=== PATIENT | male | born 1945 | race Caucasian/White ===

== ENCOUNTER 2017-01-16 10:56 | Emergency (ER) | payer MEDICARE ==
[2017-01-16 11:07] VITALS: RESP 18
[2017-01-16] MEDS ORDERED: SODIUM CHLORIDE 0.9% 1,000 ML IV STA (11:30)
[2017-01-16] MEDS ORDERED: MAGNESIUM SULFATE-D5W PMX 1 GM in DEXTROSE/WATER 1 100ML.BAG IVPB STA (11:30)
[2017-01-16] MEDS ORDERED: IPRATROPIUM-ALBUTEROL 3 ML NEB INHALATION STA ×2 (11:30→13:47)
[2017-01-16] MEDS ORDERED: methylPREDNISolone SOD SUCCI 125 MG/2 ML VIAL IV STA (11:30)
--- NOTE | 2017-01-16 11:33 | ED ---
SOB HPI - General Chief Complaint: Shortness of Breath Stated Complaint: cough, congestion, body aches Time Seen by Provider: 01/16/17 11:20 Source: patient, RN notes reviewed Mode of arrival: ambulatory Limitations: no limitations - History of Present Illness Initial Comments: This is a 71-year-old male with a history of COPD who states he had the onset over [place] of some cough he was seen in urgent care clinic and placed on antibiotics and oral steroids which she ran out of about 5-6 days ago he states he was feeling great up until a day or so later when he started getting progressively more short of breath and over last 3 days distress yet worse with cough with yellow phlegm dyspnea on exertion no overt chest pain no overt fevers chills or sweats. He is a former smoker who quit about 8 years ago. He has no other complaints other than the shortness of breath at this time. MD Complaint: shortness of breath, cough - Related Data Home Medications Medication Instructions Recorded Confirmed Multivitamins, Thera [Multivitamin] 1 tab PO DAILY 03/31/16 01/16/17 Omeprazole 20 mg PO DAILY 03/31/16 01/16/17 Atorvastatin [Lipitor] 40 mg PO HS 01/16/17 01/16/17 Cyanocobalamin [Vitamin B-12] 500 mcg PO DAILY 01/16/17 01/16/17 Ferrous Sulfate [Feosol] 325 mg PO DAILY 01/16/17 01/16/17 Lisinopril [Prinivil] 5 mg PO DAILY 01/16/17 01/16/17 Metoprolol Tartrate [Lopressor] 12.5 mg PO BID 01/16/17 01/16/17 PARoxetine HCL 40 mg PO DAILY 01/16/17 01/16/17 Tamsulosin [Flomax] 0.4 mg PO HS 01/16/17 01/16/17 Testosterone 20.25mg/Pump Gel 40.5 mg TOPICAL DAILY 01/16/17 01/16/17 Tiotropium [place] [Spiriva] 1 cap INHALATION RT-DAILY 01/16/17 01/16/17 Previous Rx's Medication Instructions Recorded Albuterol Sulfate [Proventil Hfa] 2 puff INHALATION RT-QID PRN #1 04/02/16 hfa.aer.ad Apixaban [Eliquis] 5 mg PO BID #60 tab 04/02/16 Budesonide/Formoterol Fumarate 2 puff INHALATION RT-BID #1 04/02/16 [Symbicort 160-4.5 Mcg Inhaler] hfa.aer.ad Doxycycline [Vibramycin] 100 mg PO Q12HR #20 capsule 01/16/17 Ipratropium-Albuterol Nebulize 3 ml INHALATION Q6HR PRN #120 neb 01/16/17 [Duoneb 0.5 mg-3 mg/3 ml Soln] predniSONE 20 mg PO BID #10 tab 01/16/17 Allergies Allergy/AdvReac Type Severity Reaction Status Date / Time Sulfa (Sulfonamide Allergy Unknown Verified 01/16/17 11:52 Antibiotics) Review of Systems ROS Statement: Those systems with pertinent positive or pertinent negative responses have been documented in the HPI. ROS Other: All systems not noted in ROS Statement are negative. Past Medical History Past Medical History: Atrial Fibrillation, COPD, Hyperlipidemia, Hypertension Additional Past Medical History / Comment(s): BPH History of Any Multi-Drug Resistant Organisms: None Reported Additional Past Surgical History / Comment(s): spinal fusion Past Psychological History: No Psychological Hx Reported Smoking Status: Former smoker Past Alcohol Use History: Occasional Past Drug Use History: None Reported - Past Family History Mother Family Medical History: Congestive Heart Failure (CHF) Additional Family Medical History / Comment(s): 4 uncles passed with [place] Sister(s) Family Medical History: Congestive Heart Failure (CHF) Additional Family Medical History / Comment(s): 1 sister from CHF Father Family Medical History: Cancer Additional Family Medical History / Comment(s): of sepsis after lung surgery for suspected cancer General Exam - General Exam Comments Initial Comments: This is a well-developed well-nourished awake alert oriented 3 male Limitations: no limitations General appearance: alert, in no apparent distress Head exam: Present: atraumatic, normocephalic, normal inspection Eye exam: Present: normal appearance, PERRL, EOMI. Absent: scleral icterus, conjunctival injection, periorbital swelling ENT exam: Present: normal exam, mucous membranes moist Neck exam: Present: normal inspection. Absent: tenderness, meningismus, lymphadenopathy Respiratory exam: Present: wheezes, accessory muscle use, decreased breath sounds. Absent: respiratory distress, rales, rhonchi, stridor Cardiovascular Exam: Present: regular rate, normal rhythm, normal heart sounds. Absent: systolic murmur, diastolic murmur, rubs, gallop, clicks GI/Abdominal exam: Present: soft, normal bowel sounds. Absent: distended, tenderness, guarding, rebound, rigid Extremities exam: Present: normal inspection, full ROM, normal capillary refill. Absent: tenderness, pedal edema, joint swelling, calf tenderness Back exam: Present: normal inspection Neurological exam: Present: alert, oriented X3, CN II-XII intact Psychiatric exam: Present: normal affect, normal mood Skin exam: Present: warm, dry, intact, normal color. Absent: rash Course Vital Signs 01/16/17 01/16/17 01/16/17 11:03 11:43 12:22 Temperature 98.9 F 101.4 F H Pulse Rate 84 82 Respiratory 18 Rate Blood Pressure 142/83 O2 Sat by Pulse 88 L Oximetry 01/16/17 01/16/17 12:33 13:19 Temperature 100.9 F H Pulse Rate 76 75 Respiratory 18 Rate Blood Pressure 148/70 O2 Sat by Pulse 92 L Oximetry Medical Decision Making - Medical Decision Making The patient felt improved but after walking he did desaturate somewhat. He did recover quickly I did a long discussion with him regarding admission he would like to go home and try his home nebulizer with medications. He will come back if is any problem. He currently is saturating in the high 90s. Patient will be discharged with prescriptions he is to return if needed and follow-up with his doctor. - Lab Data Result diagrams: 01/16/17 11:40 01/16/17 11:40 Lab Results 01/16/17 01/16/17 01/16/17 Range/Units 11:40 11:40 11:40 WBC 5.8 (3.8-10.6) k/uL RBC 4.19 L (4.30-5.90) m/uL Hgb 14.0 (13.0-17.5) gm/dL Hct 40.7 (39.0-53.0) % MCV 97.0 (80.0-100.0) fL MCH 33.4 (25.0-35.0) pg MCHC 34.4 (31.0-37.0) g/dL RDW 13.3 (11.5-15.5) % Plt Count 210 (150-450) k/uL Neutrophils % 78 % Lymphocytes % 10 % Monocytes % 8 % Eosinophils % 1 % Basophils % 1 % Neutrophils # 4.5 (1.3-7.7) k/uL Lymphocytes # 0.6 L (1.0-4.8) k/uL Monocytes # 0.4 (0-1.0) k/uL Eosinophils # 0.0 (0-0.7) k/uL Basophils # 0.1 (0-0.2) k/uL PT (9.0-12.0) sec INR (<1.1) APTT (22.0-30.0) sec D-Dimer (<0.60) mg/L FEU Sodium 133 L (137-145) mmol/L Potassium 4.2 (3.5-5.1) mmol/L Chloride 95 L (98-107) mmol/L Carbon Dioxide 30 (22-30) mmol/L Anion Gap 8 mmol/L BUN 8 L (9-20) mg/dL Creatinine 0.63 L (0.66-1.25) mg/dL Est GFR (MDRD) Af Amer >60 (>60 ml/min/1.73 sqM) Est GFR (MDRD) Non-Af >60 (>60 ml/min/1.73 sqM) Glucose 118 H (74-99) mg/dL Calcium 9.0 (8.4-10.2) mg/dL Magnesium 1.6 (1.6-2.3) mg/dL Total Bilirubin 0.6 (0.2-1.3) mg/dL AST 34 (17-59) U/L ALT 36 (21-72) U/L Alkaline Phosphatase 73 (38-126) U/L Total Creatine Kinase 153 (55-170) U/L CK-MB (CK-2) 6.0 H* (0.0-2.4) ng/mL CK-MB (CK-2) Rel Index 3.9 Troponin I <0.012 (0.000-0.034) ng/mL NT-Pro-B Natriuret Pep pg/mL Total Protein 6.6 (6.3-8.2) g/dL Albumin 4.0 (3.5-5.0) g/dL 02/22/17 02/22/17 Range/Units 11:40 11:40 WBC (3.8-10.6) k/uL RBC (4.30-5.90) m/uL Hgb (13.0-17.5) gm/dL Hct (39.0-53.0) % MCV (80.0-100.0) fL MCH (25.0-35.0) pg MCHC (31.0-37.0) g/dL RDW (11.5-15.5) % Plt Count (150-450) k/uL Neutrophils % % Lymphocytes % % Monocytes % % Eosinophils % % Basophils % % Neutrophils # (1.3-7.7) k/uL Lymphocytes # (1.0-4.8) k/uL Monocytes # (0-1.0) k/uL Eosinophils # (0-0.7) k/uL Basophils # (0-0.2) k/uL PT 10.6 (9.0-12.0) sec INR 1.1 (<1.1) APTT 32.7 H (22.0-30.0) sec D-Dimer <0.17 (<0.60) mg/L FEU Sodium (137-145) mmol/L Potassium (3.5-5.1) mmol/L Chloride (98-107) mmol/L Carbon Dioxide (22-30) mmol/L Anion Gap mmol/L BUN (9-20) mg/dL Creatinine (0.66-1.25) mg/dL Est GFR (MDRD) Af Amer (>60 ml/min/1.73 sqM) Est GFR (MDRD) Non-Af (>60 ml/min/1.73 sqM) Glucose (74-99) mg/dL Calcium (8.4-10.2) mg/dL Magnesium (1.6-2.3) mg/dL Total Bilirubin (0.2-1.3) mg/dL AST (17-59) U/L ALT (21-72) U/L Alkaline Phosphatase (38-126) U/L Total Creatine Kinase (55-170) U/L CK-MB (CK-2) (0.0-2.4) ng/mL CK-MB (CK-2) Rel Index Troponin I (0.000-0.034) ng/mL NT-Pro-B Natriuret Pep 427 pg/mL Total Protein (6.3-8.2) g/dL Albumin (3.5-5.0) g/dL - EKG Data -: EKG Interpreted by Me EKG shows normal: sinus rhythm (Sinus rhythm a rate of 73. Interval 150 to QRS duration 84 daily since QTC of 362/398 evidence of PACs) - Radiology Data Radiology results: report reviewed (I did review the x-ray report no definite acute findings.), image reviewed Disposition Clinical Impression: Acute exacerbation of chronic obstructive airways disease Disposition: HOME SELF-CARE Condition: Good Instructions: COPD (Chronic Obstructive Pulmonary Disease) (ED) Prescriptions: Doxycycline [Vibramycin] 100 mg PO Q12HR #20 capsule Ipratropium-Albuterol Nebulize [Duoneb 0.5 mg-3 mg/3 ml Soln] 3 ml INHALATION Q6HR PRN #120 neb PRN Reason: Dyspnea predniSONE 20 mg PO BID #10 tab
[2017-01-16 11:53] LABS: Basophils # (A) 0.1 k/uL (0-0.2); Basophils % (A) 1 %; CHCM 35.2; Eosinophils % (A) 1 %; HCT 40.7 % (39.0-53.0); HDW 2.33; Luc # (Auto) 0.17; Luc % (Auto) 3; Lymphocytes # (A) 0.6 k/uL (1.0-4.8); Lymphocytes % (A) 10 %; MCH 33.4 pg (25.0-35.0); MCHC 34.4 g/dL (31.0-37.0); Mean Platelet Volume 7.4; Monocytes # (A) 0.4 k/uL (0-1.0); Monocytes % (A) 8 %; Neutrophils # (A) 4.5 k/uL (1.3-7.7); Neutrophils % (A) 78 %; RBC 4.19 m/uL (4.30-5.90); RDW 13.3 % (11.5-15.5); WBC 5.8 k/uL (3.8-10.6); WBC (Perox) 5.42
[2017-01-16 12:07] LABS: INR 1.1 (<1.1); Partial Thromboplastin Time 32.7 sec (22.0-30.0); Prothrombin Time 10.6 sec (9.0-12.0)
[2017-01-16 12:15] LABS: ALT 36 U/L (21-72); AST 34 U/L (17-59); Alkaline Phosphatase 73 U/L (38-126); Anion Gap 8 mmol/L; Blood Urea Nitrogen 8 mg/dL (9-20); Carbon Dioxide 30 mmol/L (22-30); Chloride 95 mmol/L (98-107); Glucose 118 mg/dL (74-99); Magnesium 1.6 mg/dL (1.6-2.3); Non-African American GFR(MDRD) >60 (>60 ml/min/1.73 sqM); Potassium 4.2 mmol/L (3.5-5.1); Sodium 133 mmol/L (137-145); Total Bilirubin 0.6 mg/dL (0.2-1.3); Total Protein 6.6 g/dL (6.3-8.2)
[2017-01-16 12:20] LABS: Creatine Kinase 153 U/L (55-170)
--- NOTE | 2017-01-16 12:21 | XR ---
EXAMINATION TYPE: XR chest 2V DATE OF EXAM: 01/16/2017 12:16 PM HISTORY: difficulty breathing. REFERENCE: Previous study dated 03/31/2016. FINDINGS: Lungs are overinflated. There are some chronic increased markings. The heart is not enlarge d. The right main pulmonary artery is enlarged measuring 3.7 cm. Pleural spaces are clear. There is h ypertrophic spondylosis within the dorsal spine. IMPRESSION: 1. COPD. 2. I SUSPECT SOME DEGREE OF PULMONARY ARTERY HYPERTENSION.
[2017-01-16 12:32] LABS: Troponin I <0.012 ng/mL (0.000-0.034)
[2017-01-16 14:30] VITALS: BP 157/72; PULSE 97; TEMP 101.1
== END 2017-01-16 14:30 | disposition home or self-care (01) ==
LOC: EC 10:56
DX: J44.1 Chronic obstructive pulmonary disease with (acute) exacerbation (principal); Z87.891 Personal history of nicotine dependence; Z79.899 Other long term (current) drug therapy; E78.5 Hyperlipidemia, unspecified; I10 Essential (primary) hypertension; N40.0 Benign prostatic hyperplasia without lower urinary tract symptoms; Z79.01 Long term (current) use of anticoagulants; Z79.51 Long term (current) use of inhaled steroids; Z88.2 Allergy status to sulfonamides; I48.91 Unspecified atrial fibrillation
CPT/HCPCS: 36415; 94640 ×2; 93005; 85379; 83880; 80053; 82550; 82553; 83735; 84484; 85025; 85610; 85730; 87040; 71020; 96365; 96375; 99285; J2930; J3475; 96361; 96374

== ENCOUNTER 2017-04-29 05:57 | Inpatient (IN) | payer MEDICARE ==
--- NOTE | 2017-04-29 06:27 | ED ---
Syncope HPI - General Chief Complaint: Syncope Stated Complaint: syncope Time Seen by Provider: 04/29/17 06:19 Source: patient Mode of arrival: ambulatory Limitations: no limitations - History of Present Illness Initial Comments: This patient is 72-year-old man who presents to be evaluated for 2 syncopal episodes that happened yesterday around 4 in the afternoon and then again at 4: 30. Both the episodes occurred when he had stood up. Patient states that he passed out and fell, striking both elbows, one each fall. The patient also states that it feels like his COPD he has been flaring up overnight so he decided to be evaluated. He did not have any chest pains, palpitations, nausea or vomiting or diaphoresis. MD Complaint: loss of consciousness Onset/Timin -: hour(s) Prodromal Symptoms: lightheaded Witnessed: no Current Symptoms: shortness of breath History: previous syncopal episode Context: standing up Treatments Prior to Arrival: none - Related Data Home Medications Medication Instructions Recorded Confirmed Multivitamins, Thera [Multivitamin 1 tab PO DAILY 03/31/16 04/29/17 (formulary)] Omeprazole 20 mg PO DAILY 03/31/16 04/29/17 Atorvastatin [Lipitor] 40 mg PO HS 01/16/17 04/29/17 Cyanocobalamin [Vitamin B-12] 500 mcg PO DAILY 01/16/17 04/29/17 Ferrous Sulfate [Feosol] 325 mg PO DAILY 01/16/17 04/29/17 Lisinopril [Prinivil] 5 mg PO DAILY 01/16/17 04/29/17 Metoprolol Tartrate [Lopressor] 12.5 mg PO BID 01/16/17 04/29/17 PARoxetine HCL 40 mg PO DAILY 01/16/17 04/29/17 Tamsulosin [Flomax] 0.4 mg PO HS 01/16/17 04/29/17 Testosterone 20.25mg/Pump Gel 40.5 mg TOPICAL DAILY 01/16/17 04/29/17 Tiotropium [place] [Spiriva] 1 cap INHALATION RT-DAILY 01/16/17 04/29/17 Aspirin [Adult Low Dose Aspirin EC] 81 mg PO DAILY 04/29/17 04/29/17 Previous Rx's Medication Instructions Recorded Albuterol Sulfate [Proventil Hfa] 2 puff INHALATION RT-QID PRN #1 04/02/16 hfa.aer.ad Apixaban [Eliquis] 5 mg PO BID #60 tab 04/02/16 Budesonide/Formoterol Fumarate 2 puff INHALATION RT-BID #1 04/02/16 [Symbicort 160-4.5 Mcg Inhaler] hfa.aer.ad Allergies Allergy/AdvReac Type Severity Reaction Status Date / Time Sulfa (Sulfonamide Allergy Unknown Verified 04/29/17 06:58 Antibiotics) Review of Systems ROS Statement: Those systems with pertinent positive or pertinent negative responses have been documented in the HPI. ROS Other: All systems not noted in ROS Statement are negative. Constitutional: Denies: fever, chills, weakness Eyes: Denies: vision change Respiratory: Reports: cough, dyspnea, wheezes. Denies: hemoptysis Cardiovascular: Reports: syncope. Denies: chest pain, palpitations, orthopnea, edema Gastrointestinal: Denies: abdominal pain, vomiting, diarrhea, melena, hematochezia Genitourinary: Denies: dysuria, hematuria Musculoskeletal: Denies: back pain Skin: Denies: rash Neurological: Denies: headache, weakness, numbness, paresthesias Hematological/Lymphatic: Reports: easy bleeding (Taking the Xarelto) Past Medical History Past Medical History: Atrial Fibrillation, COPD, Hyperlipidemia, Hypertension Additional Past Medical History / Comment(s): BPH History of Any Multi-Drug Resistant Organisms: None Reported Additional Past Surgical History / Comment(s): spinal fusion Past Psychological History: No Psychological Hx Reported Smoking Status: Former smoker Past Alcohol Use History: Occasional Past Drug Use History: None Reported - Past Family History Mother Family Medical History: Congestive Heart Failure (CHF) Additional Family Medical History / Comment(s): 4 uncles passed with [place] Sister(s) Family Medical History: Congestive Heart Failure (CHF) Additional Family Medical History / Comment(s): 1 sister from CHF Father Family Medical History: Cancer Additional Family Medical History / Comment(s): of sepsis after lung surgery for suspected cancer General Exam Limitations: no limitations General appearance: alert, in no apparent distress Head exam: Present: atraumatic, normocephalic Eye exam: Present: normal appearance. Absent: scleral icterus, conjunctival injection Neck exam: Present: normal inspection, full ROM Respiratory exam: Present: wheezes, decreased breath sounds. Absent: rales, rhonchi, stridor, chest wall tenderness, accessory muscle use Cardiovascular Exam: Present: regular rate, normal rhythm, normal heart sounds. Absent: systolic murmur, diastolic murmur, rubs, gallop GI/Abdominal exam: Present: soft. Absent: distended, tenderness, guarding, rebound, mass Extremities exam: Present: normal inspection, normal capillary refill, other ( Hematoma right elbow. No obvious deformity. Minimal tenderness.). Absent: pedal edema, calf tenderness Back exam: Present: normal inspection. Absent: CVA tenderness (R), CVA tenderness (L), paraspinal tenderness Neurological exam: Present: alert Skin exam: Present: warm, dry, intact, normal color. Absent: rash, cyanosis, diaphoretic, erythema, petechiae, pallor, mottled Course Vital Signs 04/29/17 05:59 Temperature 99.4 F Pulse Rate 89 Respiratory 148 H Rate Blood Pressure 168/77 O2 Sat by Pulse 91 L Oximetry EKG Findings - EKG Results: EKG: interpreted by ERMSonali, sinus rhythm (Rate approximately 86 bpm, there are occasional premature supraventricular complexes), normal axis, normal QRS, normal ST/T Medical Decision Making - Medical Decision Making Case discussed with Dr. Borrego in who is covering for Dr. Alcantara, and requests admission to the covering physician, Dr. Guy. - Lab Data Result diagrams: 04/29/17 06:10 04/29/17 06:10 Lab Results 04/29/17 04/29/17 04/29/17 Range/Units 06:10 06:10 06:10 WBC 5.6 (3.8-10.6) k/uL RBC 4.59 (4.30-5.90) m/uL Hgb 15.0 (13.0-17.5) gm/dL Hct 44.3 (39.0-53.0) % MCV 96.7 (80.0-100.0) fL MCH 32.6 (25.0-35.0) pg MCHC 33.7 (31.0-37.0) g/dL RDW 13.4 (11.5-15.5) % Plt Count 185 (150-450) k/uL Neutrophils % 76 % Lymphocytes % 9 % Monocytes % 9 % Eosinophils % 1 % Basophils % 1 % Neutrophils # 4.2 (1.3-7.7) k/uL Lymphocytes # 0.5 L (1.0-4.8) k/uL Monocytes # 0.5 (0-1.0) k/uL Eosinophils # 0.1 (0-0.7) k/uL Basophils # 0.1 (0-0.2) k/uL PT (9.0-12.0) sec INR (<1.1) APTT (22.0-30.0) sec D-Dimer (<0.60) mg/L FEU Sodium 132 L (137-145) mmol/L Potassium 4.2 (3.5-5.1) mmol/L Chloride 94 L (98-107) mmol/L Carbon Dioxide 28 (22-30) mmol/L Anion Gap 10 mmol/L BUN 7 L (9-20) mg/dL Creatinine 0.62 L (0.66-1.25) mg/dL Est GFR (MDRD) Af Amer >60 (>60 ml/min/1.73 sqM) Est GFR (MDRD) Non-Af >60 (>60 ml/min/1.73 sqM) Glucose 99 (74-99) mg/dL Calcium 9.2 (8.4-10.2) mg/dL Magnesium 1.6 (1.6-2.3) mg/dL Total Bilirubin 1.4 H (0.2-1.3) mg/dL AST 51 (17-59) U/L ALT 41 (21-72) U/L Alkaline Phosphatase 97 (38-126) U/L Total Creatine Kinase 327 H (55-170) U/L CK-MB (CK-2) 7.3 H* (0.0-2.4) ng/mL CK-MB (CK-2) Rel Index 2.2 Troponin I <0.012 (0.000-0.034) ng/mL Total Protein 7.0 (6.3-8.2) g/dL Albumin 4.4 (3.5-5.0) g/dL 04/29/17 04/29/17 Range/Units 06:10 06:10 WBC (3.8-10.6) k/uL RBC (4.30-5.90) m/uL Hgb (13.0-17.5) gm/dL Hct (39.0-53.0) % MCV (80.0-100.0) fL MCH (25.0-35.0) pg MCHC (31.0-37.0) g/dL RDW (11.5-15.5) % Plt Count (150-450) k/uL Neutrophils % % Lymphocytes % % Monocytes % % Eosinophils % % Basophils % % Neutrophils # (1.3-7.7) k/uL Lymphocytes # (1.0-4.8) k/uL Monocytes # (0-1.0) k/uL Eosinophils # (0-0.7) k/uL Basophils # (0-0.2) k/uL PT 10.4 (9.0-12.0) sec INR 1.0 (<1.1) APTT 30.4 H (22.0-30.0) sec D-Dimer 0.45 (<0.60) mg/L FEU Sodium (137-145) mmol/L Potassium (3.5-5.1) mmol/L Chloride (98-107) mmol/L Carbon Dioxide (22-30) mmol/L Anion Gap mmol/L BUN (9-20) mg/dL Creatinine (0.66-1.25) mg/dL Est GFR (MDRD) Af Amer (>60 ml/min/1.73 sqM) Est GFR (MDRD) Non-Af (>60 ml/min/1.73 sqM) Glucose (74-99) mg/dL Calcium (8.4-10.2) mg/dL Magnesium (1.6-2.3) mg/dL Total Bilirubin (0.2-1.3) mg/dL AST (17-59) U/L ALT (21-72) U/L Alkaline Phosphatase (38-126) U/L Total Creatine Kinase (55-170) U/L CK-MB (CK-2) (0.0-2.4) ng/mL CK-MB (CK-2) Rel Index Troponin I (0.000-0.034) ng/mL Total Protein (6.3-8.2) g/dL Albumin (3.5-5.0) g/dL Disposition Clinical Impression: Syncope, COPD exacerbation Disposition: ADMITTED IP TO THIS HOSP Condition: Fair Referrals: Willy Alcantara MD [Primary Care Provider] - 1-2 days
[2017-04-29 06:37] LABS: Basophils # (A) 0.1 k/uL (0-0.2); Basophils % (A) 1 %; CH 33.8; CHCM 35.1; Eosinophils # (A) 0.1 k/uL (0-0.7); Eosinophils % (A) 1 %; HCT 44.3 % (39.0-53.0); HDW 2.04; Luc # (Auto) 0.24; Luc % (Auto) 4; Lymphocytes # (A) 0.5 k/uL (1.0-4.8); Lymphocytes % (A) 9 %; MCH 32.6 pg (25.0-35.0); MCHC 33.7 g/dL (31.0-37.0); MCV 96.7 fL (80.0-100.0); Mean Platelet Volume 6.4; Monocytes # (A) 0.5 k/uL (0-1.0); Monocytes % (A) 9 %; Neutrophils # (A) 4.2 k/uL (1.3-7.7); Neutrophils % (A) 76 %; RBC 4.59 m/uL (4.30-5.90); RDW 13.4 % (11.5-15.5); WBC 5.6 k/uL (3.8-10.6); WBC (Perox) 5.43
[2017-04-29 06:47] LABS: Prothrombin Time 10.4 sec (9.0-12.0)
[2017-04-29 06:48] LABS: Partial Thromboplastin Time 30.4 sec (22.0-30.0)
[2017-04-29 06:52] LABS: ALT 41 U/L (21-72); AST 51 U/L (17-59); Alkaline Phosphatase 97 U/L (38-126); Anion Gap 10 mmol/L; Blood Urea Nitrogen 7 mg/dL (9-20); Calcium 9.2 mg/dL (8.4-10.2); Carbon Dioxide 28 mmol/L (22-30); Chloride 94 mmol/L (98-107); Glucose 99 mg/dL (74-99); Magnesium 1.6 mg/dL (1.6-2.3); Non-African American GFR(MDRD) >60 (>60 ml/min/1.73 sqM); Potassium 4.2 mmol/L (3.5-5.1); Sodium 132 mmol/L (137-145); Total Bilirubin 1.4 mg/dL (0.2-1.3)
[2017-04-29 07:00] LABS: Creatine Kinase 327 U/L (55-170)
[2017-04-29] MEDS ORDERED: IPRATROPIUM-ALBUTEROL 3 ML NEB INHALATION STA (07:10)
[2017-04-29 07:13] LABS: Troponin I <0.012 ng/mL (0.000-0.034)
[2017-04-29 07:27] LABS: Creatine Kinase MB 7.3 ng/mL (0.0-2.4)
--- NOTE | 2017-04-29 07:31 | XR ---
EXAMINATION TYPE: XR elbow complete RT DATE OF EXAM: 04/29/2017 CLINICAL HISTORY: Elbow injury with pain TECHNIQUE: Frontal, lateral and oblique images of the right elbow are obtained. COMPARISON: None FINDINGS: There is no acute fracture/dislocation evident in the right elbow. Spurring ulnohumeral ar ticulation is present. Spurring from the lateral epicondyle distal humerus is seen. No abnormal fat p ad signs are seen. Mild soft tissue swelling and subcutaneous edema ulnar aspect is noted. IMPRESSION: There is no acute fracture or dislocation in the right elbow.
--- NOTE | 2017-04-29 07:33 | XR ---
EXAMINATION TYPE: XR chest 1V portable DATE OF EXAM: 04/29/2017 COMPARISON: Chest x-ray January 16, 2017. HISTORY: Syncope. History of emphysema. TECHNIQUE: 2 AP portable frontal views of the chest are obtained. FINDINGS: There is chronic parenchymal change without suspicious new focal air space opacity, pleura l effusion, or pneumothorax seen. The cardiac silhouette size is within normal limits with atheroscl erotic change in aortic knob. Multilevel spurring and spine is seen. There is old fracture deformity left posterior lateral ninth rib. There is partial visualization of surgical change in the upper lumb ar spine. IMPRESSION: Chronic changes without acute pulmonary process.
--- NOTE | 2017-04-29 07:36 | CT ---
EXAMINATION TYPE: CT brain phuongine dmitri con DATE OF EXAM: 04/29/2017 COMPARISON: NONE HISTORY: multiple episodes of syncope with headache and neck pain. CT DLP: 1384.9 mGycm. Automated Exposure Control for Dose Reduction was Utilized. TECHNIQUE: CT scan of the head and cervical spine are performed without contrast. FINDINGS: There is no acute intracranial hemorrhage, mass effect, or midline shift identified. The ventricles and sulci are within normal limits in size. The globes are intact and the visualized sin uses are clear. Calvarium is intact. Vascular calcification distal internal carotid arteries is noted bilaterally. Cervical spine is visualized in its entirety from C1 through upper thoracic levels and demonstrates s traightened alignment without evidence of acute fracture or dislocation. Prevertebral soft tissue ap pears within normal limits. The C1-C2 articulation is within normal limits on the coronal images. Vertebral body heights are maintained. There is moderate to advanced disc space narrowing with sclero sis and moderate spurring C5-C6 level and moderate to severe spurring at C6-C7 level. Review of axial images shows left-sided uncovertebral facet degenerative changes causing neural dean inal narrowing at C2-C3 through C4-C5 levels. There is marginal spurring causing bilateral neural for aminal narrowing at C5-C6 level. Visualized lung apices show moderate edematous change. Moderate calc ified plaque at both carotid bulb level is present. Consider nonemergent carotid ultrasound follow-up . IMPRESSION: 1. There is no acute fracture or dislocation evident in the cervical spine. 2. No acute intracranial hemorrhage, mass effect, or midline shift is seen.
[2017-04-29] MEDS ORDERED: NITROGLYCERIN SL TABS 0.4 MG TAB SUBLINGUAL PRN (07:38)
[2017-04-29] MEDS ORDERED: ALBUTEROL NEBULIZED 2.5 MG/3 ML INHALATION PRN (07:41)
[2017-04-29] MEDS ORDERED: predniSONE 20 MG TAB PO STA (07:43)
[2017-04-29 07:47] LABS: Appearance,Urine Clear (Clear); Bilirubin,Urine Negative (Negative); Glucose,Urine (UA) Negative (Negative); Ketones,Urine 1+ (Negative); Leukocyte Esterase,Urine Negative (Negative); Nitrite,Urine Negative (Negative); PH, Urine 5.5 (5.0-8.0); Protein,Urine Negative (Negative); Specific Gravity,Urine 1.006 (1.001-1.035); UA Billing (MACRO vs. MICRO) CHEM; Urobilinogen,Urine <2.0 mg/dL (<2.0)
[2017-04-29] MEDS: IPRATROPIUM-ALBUTEROL 3 ML NEB INHALATION SCH ×4 (07:58→20:26)
[2017-04-29] MEDS ORDERED: TIOTROPIUM 18 MCG/PUFF INHALER INHALATION SCH (08:00)
[2017-04-29] MEDS: SODIUM CHLORIDE 0.9% 1,000 ML IV SCH (08:25)
[2017-04-29] MEDS ORDERED: NON-FORMULARY DRUG (Aspirin [Adult Low Dose Aspirin Ec] 81 MG) PO SCH (09:00)
[2017-04-29] MEDS: APIXABAN 5 MG TAB PO SCH ×2 (11:09→20:57)
[2017-04-29] MEDS: LISINOPRIL 5 MG TAB PO SCH (11:11)
[2017-04-29] MEDS: METOPROLOL TARTRATE 12.5 MG TAB PO SCH ×2 (11:11→20:55)
[2017-04-29] MEDS: PARoxetine 20 MG TAB PO SCH (11:12)
[2017-04-29] MEDS: CYANOCOBALAMIN 500 MCG TAB PO SCH (11:13)
[2017-04-29] MEDS: MULTIVITAMINS, THERA 1 EACH TAB PO SCH (11:13)
[2017-04-29] MEDS: FERROUS SULFATE 325 MG TAB PO SCH (11:13)
[2017-04-29] MEDS: SYMBICORT 160-4.5 MCG INHALER INHALATION SCH ×2 (11:45→20:26)
[2017-04-29 12:28] LABS: Creatine Kinase 294 U/L (55-170)
[2017-04-29 12:42] LABS: Troponin I <0.012 ng/mL (0.000-0.034)
[2017-04-29 12:47] LABS: Creatine Kinase MB 5.8 ng/mL (0.0-2.4)
[2017-04-29] MEDS ORDERED: LORazepam 2 MG/ML SYRINGE IV PRN ×3 (14:33)
[2017-04-29] MEDS ORDERED: THIAMINE 100 MG/ML 2 ML VIAL IM STA (14:33)
[2017-04-29] MEDS ORDERED: Magnesium Replacement Protocol 1 EACH MISC MISCELLANE PRN (14:34)
--- NOTE | 2017-04-29 16:21 | P.CNPUL ---
History of Present Illness Consult date: 04/29/17 Reason for consult: COPD History of present illness: A 72-year-old male patient who came into the hospital yesterday because of acute shortness of breath. At the same time the patient described 2 episodes of syncope. Apparently yesterday when he was at his friend's house at around 4 PM, he was about to leave and he walked out for around 6-8 feet and he became wobbly and then he collapsed for a few seconds. He woke up immediately following that. He was able to drive back home. 45 minutes to an hour following the first event he had another episode when he collapsed and he got up and he contacted EMS and he came into the hospital. Note that he was having increased difficulty in breathing and he was having acute COPD exacerbation symptoms with increased cough chest congestion and wheezing over the past 24-48 hours. No chest pain during the episodes. No focal neurological deficits. No seizure activity was noted. No palpitations or cardiac arrhythmias was identified. His EKG showed a sinus rhythm with premature ventricular complexes and septal infarct that was probably old. He is a chronic smoker. He drinks also be on a daily basis. He is mainly being followed up by the railroad dining car steward/stewardess at the [facility] however he has seen Dr. JACOB Kendall in the past. Her latest stress test was more than 2 years ago. Note that his CPK is not elevated. Troponin is a been negative. Rest of the blood work essentially within normal limits. The computed tomography scan of the cervical spine showed no acute fracture or dislocation and there was no acute abnormalities within the brain on the CAT scan of the head. The patient has been on long-term anticoagulation with Eliquis regarding paroxysmal atrial fibrillation. In terms of his COPD, has been maintained on a combination of Spiriva, budesonide solution and Proventil rescue inhaler on as needed basis. Review of Systems All systems: negative Constitutional: Denies chills, Denies fever Eyes: denies blurred vision, denies pain Ears, nose, mouth and throat: Denies headache, Denies sore throat Cardiovascular: Denies chest pain, Denies shortness of breath Respiratory: Reports cough, Reports cough with sputum, Reports dyspnea, Reports wheezing Gastrointestinal: Denies abdominal pain, Denies diarrhea, Denies nausea, Denies vomiting Musculoskeletal: Denies myalgias Integumentary: Denies pruritus, Denies rash Neurological: Reports syncope, Denies numbness, Denies weakness Psychiatric: Denies anxiety, Denies depression Endocrine: Denies fatigue, Denies weight change Past Medical History Past Medical History: Atrial Fibrillation, Atrial Flutter, COPD, GERD/Reflux, Hyperlipidemia, Hypertension, Osteoarthritis (OA), Pneumonia, Prostate Disorder Additional Past Medical History / Comment(s): BPH, bilateral tinnitis, NIDDM- diet controlled, DJD, arthritis R hand and R knee, numbness/tingling R leg, past R arm fracture. History of Any Multi-Drug Resistant Organisms: None Reported Additional Past Surgical History / Comment(s): lumbar laminiectomy, revision back surgery, EGD/colonoscopy Past Anesthesia/Blood Transfusion Reactions: No Reported Reaction Past Psychological History: Anxiety, Bipolar Additional Psychological History / Comment(s): Pt states he lives alone. He is independent. He has medication for his mental health and he states it is working well. Smoking Status: Former smoker Past Alcohol Use History: Daily Additional Past Alcohol Use History / Comment(s): Pt states he started smoking in 1964 and quit in . He had been a 2 ppd smoker. He drinks 3-4 beers daily. Past Drug Use History: None Reported - Past Family History Mother Family Medical History: Congestive Heart Failure (CHF) Additional Family Medical History / Comment(s): 4 uncles passed with NC Sister(s) Family Medical History: Congestive Heart Failure (CHF) Additional Family Medical History / Comment(s): 1 sister from CHF Father Family Medical History: Cancer Additional Family Medical History / Comment(s): of sepsis after lung surgery for suspected cancer Medications and Allergies Home Medications Medication Instructions Recorded Confirmed Type Multivitamins, Thera [Multivitamin 1 tab PO DAILY 03/31/16 04/29/17 History (formulary)] Omeprazole 20 mg PO DAILY 03/31/16 04/29/17 History Atorvastatin [Lipitor] 40 mg PO HS 01/16/17 04/29/17 History Cyanocobalamin [Vitamin B-12] 500 mcg PO DAILY 01/16/17 04/29/17 History Ferrous Sulfate [Feosol] 325 mg PO DAILY 01/16/17 04/29/17 History Lisinopril [Prinivil] 5 mg PO DAILY 01/16/17 04/29/17 History Metoprolol Tartrate [Lopressor] 12.5 mg PO BID 01/16/17 04/29/17 History PARoxetine HCL 40 mg PO DAILY 01/16/17 04/29/17 History Tamsulosin [Flomax] 0.4 mg PO HS 01/16/17 04/29/17 History Testosterone 20.25mg/Pump Gel 40.5 mg TOPICAL DAILY 01/16/17 04/29/17 History Tiotropium [place] [Spiriva] 1 cap INHALATION RT-DAILY 01/16/17 04/29/17 History Aspirin [Adult Low Dose Aspirin EC] 81 mg PO DAILY 04/29/17 04/29/17 History Allergies Allergy/AdvReac Type Severity Reaction Status Date / Time Sulfa (Sulfonamide Allergy Unknown Verified 04/29/17 06:58 Antibiotics) Physical Exam Vitals: Vital Signs Temp Pulse Pulse Resp BP BP Pulse Ox 04/29/17 15:27 88 04/29/17 15:21 80 04/29/17 12:25 82 16 157/81 92 L 04/29/17 11:59 88 04/29/17 11:52 84 04/29/17 10:00 98.2 F 82 16 154/77 93 L 04/29/17 09:13 98.1 F 84 20 146/70 98 04/29/17 08:26 98.0 F 88 20 166/78 95 04/29/17 08:17 88 04/29/17 07:58 83 04/29/17 05:59 99.4 F 89 148 H 168/77 91 L Intake and Output 04/29/17 04/29/17 04/29/17 06:59 14:59 22:59 Intake Total 240 Balance 240 Intake: Oral 240 Other: Weight 75.75 kg Head exam was generally normal. There was no scleral icterus or corneal arcus. Mucous membranes were moist.Neck was supple and without jugular venous distension, thyromegaly, or carotid bruits. Carotids were easily palpable bilaterally. There was no adenopathy. Lung sounds are diminished and there is diffuse expiratory wheezes throughout the lung burch bilaterallyCardiac exam revealed the PMI to be normally situated and sized. The rhythm was regular and no extrasystoles were noted during several minutes of auscultation. The first and second heart sounds were normal and physiologic splitting of the second heart sound was noted. There were no murmurs, rubs, clicks, or gallops.Abdominal exam revealed normal bowel sounds. The abdomen was soft, non- tender, and without masses, organomegaly, or appreciable enlargement of the abdominal aorta.Examination of the extremities revealed easily palpable radial, femoral and pedal pulses. There was no cyanosis, clubbing or edema. Neurologic exam is nonfocal. Results - Laboratory Findings CBC and BMP: 04/29/17 06:10 04/29/17 06:10 PT/INR, D-dimer PT 10.4 sec (9.0-12.0) 04/29/17 06:10 INR 1.0 (<1.1) 04/29/17 06:10 D-Dimer 0.45 mg/L FEU (<0.60) 04/29/17 06:10 Abnormal lab findings: Abnormal Labs 04/29/17 04/29/17 04/29/17 06:10 06:10 06:10 Lymphocytes # 0.5 L APTT Sodium 132 L Chloride 94 L BUN 7 L Creatinine 0.62 L Total Bilirubin 1.4 H Total Creatine Kinase 327 H CK-MB (CK-2) 7.3 H* Urine Ketones 04/29/17 04/29/17 04/29/17 06:10 06:20 11:38 Lymphocytes # APTT 30.4 H Sodium Chloride BUN Creatinine Total Bilirubin Total Creatine Kinase 294 H CK-MB (CK-2) 5.8 H* Urine Ketones 1+ H - Diagnostic Findings Chest x-ray: image reviewed Assessment and Plan Plan: Assessment 1 acute COPD exacerbation with secondary shortness of breath 2 syncope 2 currently under investigation. Doubt this syncope to be of a pulmonary source and the possibility of a cardiogenic or neurogenic syncope needs to be ruled out 3 paroxysmal atrial fibrillation 4 hypertension 5 hyperlipidemia 6 BPH 7 degenerative arthritis Plan From the pulmonary standpoint, we'll put the patient on a DuoNeb nebulized treatments around the clock, resume Symbicort, the patient IV Solu-Medrol, and monitor the pulmonary progression. Smoking cessation counseling was done. Cardiology consultation will be obtained. Echocardiogram will be needed. CAT scan of the brain and the cervical spine was noted. professional housing consultant. Carotid Dopplers. We'll continue to follow.
[2017-04-29] MEDS: PANTOPRAZOLE 40 MG TABLET PO SCH (16:38)
[2017-04-29] MEDS: MAGNESIUM SULFATE-D5W PMX 1 GM in DEXTROSE/WATER 1 100ML.BAG IVPB SCH ×2 (16:38→18:22)
[2017-04-29] MEDS: methylPREDNISolone SOD SUCCI 125 MG/2 ML VIAL IV SCH (18:22)
[2017-04-29] MEDS ORDERED: IPRATROPIUM-ALBUTEROL 3 ML NEB INHALATION PRN (19:12)
[2017-04-29 20:05] LABS: Creatine Kinase 279 U/L (55-170)
[2017-04-29 20:17] LABS: Troponin I <0.012 ng/mL (0.000-0.034)
--- NOTE | 2017-04-29 20:26 | US ---
EXAMINATION TYPE: US carotid duplex BILAT DATE OF EXAM: 04/29/2017 COMPARISON: NONE CLINICAL HISTORY: syncope. EXAM MEASUREMENTS: RIGHT: Peak Systolic Velocity (PSV) cm/sec ----- Right CCA: 91.5 ----- Right ICA: 74.0 ----- Right ECA: 98.7 ICA/CCA ratio: 0.8 RIGHT: End Diastole cm/sec ----- Right CCA: 17.3 ----- Right ICA: 20.2 ----- Right ECA: 11.5 LEFT: Peak Systolic Velocity (PSV) cm/sec ----- Left CCA: 116.1 ----- Left ICA: 80.6 ----- Left ECA: 91.9 ICA/CCA ratio: 0.7 LEFT: End Diastole cm/sec ----- Left CCA: 22.5 ----- Left ICA: 28.9 ----- Left ECA: 7.9 VERTEBRALS (direction of flow): Right Vertebral: Antegrade Left Vertebral: Antegrade Moderate amount of plaque visualized in bilateral bulbs/proximal ICAs. No elevated velocities IMPRESSION: There is antegrade flow in the vertebral arteries. The images and measurements suggest c lose to 50% stenosis in both internal carotid arteries. Criteria for Assigning % of Stenosis / Diameter reduction (Estimation based on the indirect measurements of the internal carotid artery velocities (ICA PSV). 1. Normal (no stenosis)=ICA PSV < 125 cm/s: ratio < 2.0: ICA EDV<40 cm/s. 2. Less than 50% stenosis=ICA PSV < 125 cm/s: ratio < 2.0: ICA EDV<40 cm/s. 3. 50 to 69% stenosis=ICA PSV of 125 to 230 cm/s: ration 2.0 ? 4.0: ICA EDV 40-100 cm/s. 4. Greater than 70% stenosis to near occlusion= ICA PSV > 230 cm/s: ratio > 4.0: ICA EDV > 100 cm/s. 5. Near occlusion= ICA PSV velocities may be low or undetectable: variable ratio and ICA EDV. 6. Total occlusion=unable to detect flow.
[2017-04-29] MEDS ORDERED: TAMSULOSIN 0.4 MG CAP.ER.24H PO SCH (21:00)
[2017-04-29] MEDS ORDERED: ATORVASTATIN 40 MG TAB PO SCH (21:00)
[2017-04-30] MEDS: methylPREDNISolone SOD SUCCI 125 MG/2 ML VIAL IV SCH ×3 (00:04→11:54)
[2017-04-30] MEDS: PANTOPRAZOLE 40 MG TABLET PO SCH (06:13)
--- NOTE | 2017-04-30 06:52 | HP ---
DATE OF ADMISSION: Primary care physician is Dr. Alcantara. Reason for admission is syncope. HISTORY OF PRESENT ILLNESS: This is a 72-year-old gentleman with history of COPD who comes in the hospital with 2 episodes of syncope. Patient stated that he was at his friend's house and was drinking some beer, got up without any alarming symptoms. The patient collapsed for a few seconds. Thereafter was able to wake up and walk out of his friend's house. This was at 4 p.m. Thereafter had another episode and about 5 p.m. at his home where he suddenly collapsed and lost consciousness for a brief period and thereafter woke up. Denies having any loss of bowel or bladder function. Patient's golf course starter [facility] Underwent an echocardiogram 5 days ago. Patient states that he denies having any chest pain, difficulty in breathing, palpitations, nausea, vomiting, headache, blurry vision. No recent illnesses were reported. Current EKG on admission was noted to be in sinus rhythm with PVCs. No ST elevations were noted. Patient also sustained some injuries to his left elbow and forearm. X-ray was done, no fractures were appreciated. Past medical history includes atrial fibrillation, ongoing tobacco use, COPD, dyslipidemia, hypertension. Past surgical history includes lumbar laminectomy, colonoscopy, EGD, cardiac catheterization. SOCIAL HISTORY: Currently noted to have ongoing tobacco use. Denies use of marijuana. Drinks regularly a few beers daily. Home medications include: 1. Multivitamin. 2. Atorvastatin. 3. Omeprazole. 4. Cyanocobalamin. 5. Feosol. 6. Lisinopril. 7. Metoprolol. 8. Paroxetine. 9. Tamiflu. 10. Testosterone. 11. Spiriva. 12. Aspirin. ALLERGIES: SULFA. PHYSICAL EXAM: VITALS: Temperature is 98.2, heart rate 88, respiratory rate 16, saturating 98% on room air. Blood pressure is 145 to 168 systolic to 70 to 81 diastolic. GENERALLY: Patient appears to be alert, oriented x3. HEENT: The pupils are equal and reactive to light and accommodation. HEART: S1, S2 present. No murmur appreciated. LUNGS: Diminished breath sounds. No rhonchi, wheezing or crackles. ABDOMINAL EXAM: Soft, nontender, no organomegaly appreciated. GENITOURINARY: No Biswas in place. EXTREMITIES: Pulses can be palpated distally. Denies any tenderness on gross palpation. SKIN: There is a laceration noted on and left forearm and multiple bruises were noted. NEUROLOGICALLY: Grossly cranial nerves 2-12 intact. No motor or sensory deficits noted. Laboratory data include hemoglobin 15, hematocrit 44.3, white count 5.6, platelets 185. Sodium 132, potassium 4.2, chloride 94, bicarb 28. BUN 7, creatinine 0.62. RADIOLOGIC DATA: CT of the head and neck were noted to not show any acute bleeding episodes. ASSESSMENT AND PLAN: 1. Syncope. This appears to likely be of a cardiogenic source. Patient had an echocardiogram a week ago, which will be obtained from the [facility]. 2. Continue telemetry monitoring. 3. Mild exacerbation of chronic obstructive pulmonary disease. 4. Hypertension. 5. Dyslipidemia. 6. Paroxysmal atrial fibrillation. 7. Benign prostatic hypertrophy. 8. Degenerative arthritis. PLAN: Continue ongoing care. Cardiology consultation will be obtained. Telemetry monitoring. I will continue Eliquis at this time. Wound care in regards to the laceration will just be changed with 4 x 4. Once bleeding is held, antiseptic cream can be applied. Will obtain a TSH as well. Cardiac enzymes to be completed. Breathing treatments to continue. Patient is on small dose of steroids as well. Carotid study was ordered by Dr. Borrego. Will follow.
[2017-04-30 07:06] LABS: Basophils % (A) 0 %; CH 33.7; CHCM 34.8; Eosinophils % (A) 0 %; HDW 2.03; HGB 14.5 gm/dL (13.0-17.5); Luc # (Auto) 0.04; Luc % (Auto) 1; Lymphocytes # (A) 0.2 k/uL (1.0-4.8); Lymphocytes % (A) 4 %; MCH 32.7 pg (25.0-35.0); MCHC 33.6 g/dL (31.0-37.0); MCV 97.3 fL (80.0-100.0); Mean Platelet Volume 6.9; Monocytes # (A) 0.2 k/uL (0-1.0); Monocytes % (A) 3 %; Neutrophils # (A) 5.5 k/uL (1.3-7.7); Neutrophils % (A) 93 %; RBC 4.42 m/uL (4.30-5.90); RDW 13.4 % (11.5-15.5); WBC 5.9 k/uL (3.8-10.6); WBC (Perox) 5.98
[2017-04-30] MEDS: SYMBICORT 160-4.5 MCG INHALER INHALATION SCH (07:11)
[2017-04-30] MEDS: IPRATROPIUM-ALBUTEROL 3 ML NEB INHALATION SCH ×2 (07:11→11:24)
[2017-04-30 07:26] LABS: ALT 40 U/L (21-72); AST 42 U/L (17-59); Alkaline Phosphatase 82 U/L (38-126); Anion Gap 8 mmol/L; Blood Urea Nitrogen 13 mg/dL (9-20); Calcium 8.9 mg/dL (8.4-10.2); Carbon Dioxide 26 mmol/L (22-30); Chloride 98 mmol/L (98-107); Cholesterol 137 mg/dL (<200); Glucose 145 mg/dL (74-99); HDL Cholesterol 71 mg/dL (40-60); Magnesium 2.2 mg/dL (1.6-2.3); Non-African American GFR(MDRD) >60 (>60 ml/min/1.73 sqM); Potassium 4.4 mmol/L (3.5-5.1); Sodium 132 mmol/L (137-145); Total Bilirubin 0.8 mg/dL (0.2-1.3); Total Protein 6.7 g/dL (6.3-8.2); Triglycerides 32 mg/dL (<150)
[2017-04-30] MEDS: SODIUM CHLORIDE 0.9% 1,000 ML IV SCH (08:58)
[2017-04-30] MEDS: CYANOCOBALAMIN 500 MCG TAB PO SCH (08:59)
[2017-04-30] MEDS: FERROUS SULFATE 325 MG TAB PO SCH (08:59)
[2017-04-30] MEDS: METOPROLOL TARTRATE 12.5 MG TAB PO SCH (08:59)
[2017-04-30] MEDS: APIXABAN 5 MG TAB PO SCH (08:59)
[2017-04-30] MEDS ORDERED: ASPIRIN 325 MG TAB PO SCH (09:00)
[2017-04-30] MEDS ORDERED: predniSONE 20 MG TAB PO SCH (09:00)
[2017-04-30] MEDS: PARoxetine 20 MG TAB PO SCH (09:00)
[2017-04-30] MEDS: LISINOPRIL 5 MG TAB PO SCH (09:00)
[2017-04-30 09:04] VITALS: TEMP 98.1
[2017-04-30] MEDS: MULTIVITAMINS, THERA 1 EACH TAB PO SCH (11:54)
[2017-04-30 11:58] VITALS: BP 138/65; PULSE 75; RESP 16
[2017-04-30] MEDS ORDERED: THIAMINE 100 MG TAB PO SCH (12:00)
--- NOTE | 2017-04-30 12:29 | P.PN ---
Subjective A 72-year-old male patient who came into the hospital yesterday because of acute shortness of breath. At the same time the patient described 2 episodes of syncope. Apparently yesterday when he was at his friend's house at around 4 PM, he was about to leave and he walked out for around 6-8 feet and he became wobbly and then he collapsed for a few seconds. He woke up immediately following that. He was able to drive back home. 45 minutes to an hour following the first event he had another episode when he collapsed and he got up and he contacted EMS and he came into the hospital. Note that he was having increased difficulty in breathing and he was having acute COPD exacerbation symptoms with increased cough chest congestion and wheezing over the past 24-48 hours. No chest pain during the episodes. No focal neurological deficits. No seizure activity was noted. No palpitations or cardiac arrhythmias was identified. His EKG showed a sinus rhythm with premature ventricular complexes and septal infarct that was probably old. He is a chronic smoker. He drinks also be on a daily basis. He is mainly being followed up by the pr intern at the [facility] however he has seen Dr. JACOB Kendall in the past. Her latest stress test was more than 2 years ago. Note that his CPK is not elevated. Troponin is a been negative. Rest of the blood work essentially within normal limits. The computed tomography scan of the cervical spine showed no acute fracture or dislocation and there was no acute abnormalities within the brain on the CAT scan of the head. The patient has been on long-term anticoagulation with Eliquis regarding paroxysmal atrial fibrillation. In terms of his COPD, has been maintained on a combination of Spiriva, budesonide solution and Proventil rescue inhaler on as needed basis. On 04/30/2017 the patient is feeling better. The patient is less short of breath. The patient is not having any significant chest tightness. He has bronchospastic and wheezy, however this improved compared to yesterday. No further episodes of syncope. Pulse ox on room air is above 90% however the patient is desaturating with activity. He remains on high dose of Medrol 60 every 6. He is also on DuoNeb nebulized treatments around the clock. Objective - Vital Signs Vital signs: Vital Signs Temp 98.1 F 04/30/17 09:00 Pulse 75 04/30/17 11:57 Resp 16 04/30/17 11:58 BP 138/65 04/30/17 11:57 Pulse Ox 94 L 04/30/17 11:57 Intake & Output 04/29/17 04/30/17 04/30/17 18:59 06:59 18:59 Intake Total 960 320 240 Output Total 1600 500 Balance 960 -1280 -260 Weight 74.7 kg Intake: IV 160 320 Sodium Chloride 0.9% 1, 160 320 000 ml @ 20 mls/hr IV . Q24H [facility] Rx#:[id number] Intake, IV Titration 200 Amount Magnesium Sulfate-D5w Pmx 200 1 gm In Dextrose/Water 1 100ml.bag @ 100 mls/hr IVPB Q1H [facility] Rx#: [id number] Oral 600 240 Output: Urine 1600 500 Other: # Voids 2 2 - Exam Head exam was generally normal. There was no scleral icterus or corneal arcus. Mucous membranes were moist.Neck was supple and without jugular venous distension, thyromegaly, or carotid bruits. Carotids were easily palpable bilaterally. There was no adenopathy. Lung sounds are diminished and there is diffuse expiratory wheezes throughout the lung burch bilaterally, improved compared to yesterday. Cardiac exam revealed the PMI to be normally situated and sized. The rhythm was regular and no extrasystoles were noted during several minutes of auscultation. The first and second heart sounds were normal and physiologic splitting of the second heart sound was noted. There were no murmurs, rubs, clicks, or gallops.Abdominal exam revealed normal bowel sounds. The abdomen was soft, non-tender, and without masses, organomegaly, or appreciable enlargement of the abdominal aorta.Examination of the extremities revealed easily palpable radial, femoral and pedal pulses. There was no cyanosis , clubbing or edema. Neurologic exam is nonfocal. - Labs CBC & Chem 7: 04/30/17 05:47 04/30/17 05:47 Labs: Abnormal Lab Results - Last 24 Hours (Table) 04/29/17 04/29/17 04/30/17 Range/Units 11:38 18:46 05:47 Lymphocytes # (1.0-4.8) k/uL Sodium 132 L (137-145) mmol/L Creatinine 0.55 L (0.66-1.25) mg/dL Glucose 145 H (74-99) mg/dL Total Creatine Kinase 294 H 279 H (55-170) U/L CK-MB (CK-2) 5.8 H* 6.0 H* (0.0-2.4) ng/mL HDL Cholesterol 71 H (40-60) mg/dL TSH 0.252 L (0.465-4.680) mIU/L 04/30/17 Range/Units 05:47 Lymphocytes # 0.2 L (1.0-4.8) k/uL Sodium (137-145) mmol/L Creatinine (0.66-1.25) mg/dL Glucose (74-99) mg/dL Total Creatine Kinase (55-170) U/L CK-MB (CK-2) (0.0-2.4) ng/mL HDL Cholesterol (40-60) mg/dL TSH (0.465-4.680) mIU/L Assessment and Plan Plan: Assessment 1 acute COPD exacerbation with secondary shortness of breath, improving 2 syncope 2 currently under investigation. Doubt this syncope to be of a pulmonary source and the possibility of a cardiogenic or neurogenic syncope needs to be ruled out 3 paroxysmal atrial fibrillation 4 hypertension 5 hyperlipidemia 6 BPH 7 degenerative arthritis Plan From the pulmonary standpoint, the patient is improving and the patient can be potentially discharged home on a prednisone burst taper, a combination of sobriety via and Symbicort as maintenance for COPD and diabetes in about treatments around the clock. He will obviously need oxygen if he shows exertional desaturation. He can be followed up in our office in a week or 2 following her discharge. Meanwhile, the syncope evaluation is per cardiology and medicine. The carotid Dopplers were negative.
--- NOTE | 2017-04-30 18:55 | P.DS ---
Providers Date of admission: 04/29/17 07:41 Attending physician: Phill Guy Consults: 04/29/17 07:38 Consult Physician Routine Consulting Provider: Willy Alcantara Consult Reason/Comments: your patient. COPD. Syncope. Do you want consulting provider notified?: Yes Primary care physician: Willy Alcantara [facility] Course: HISTORY OF PRESENT ILLNESS: This is a 72-year-old gentleman with history of COPD who comes in the hospital with 2 episodes of syncope. Patient stated that he was at his friend's house and was drinking some beer, got up without any alarming symptoms. The patient collapsed for a few seconds. Thereafter was able to wake up and walk out of his friend's house. This was at 4 p.m. Thereafter had another episode and about 5 p.m. at his home where he suddenly collapsed and lost consciousness for a brief period and thereafter woke up. Denies having any loss of bowel or bladder function. 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 Underwent an echocardiogram 5 days ago. Patient states that he denies having any chest pain, difficulty in breathing, palpitations, nausea, vomiting, headache, blurry vision. No recent illnesses were reported. Current EKG on admission was noted to be in sinus rhythm with PVCs. No ST elevations were noted. Patient also sustained some injuries to his left elbow and forearm. X-ray was done, no fractures were appreciated. 04/30/17 doing well no new complaints No recurrence of symptoms PHYSICAL EXAM: GENERALLY: Patient appears to be alert, oriented x3. HEENT: The pupils are equal and reactive to light and accommodation. HEART: S1, S2 present. No murmur appreciated. LUNGS: Diminished breath sounds. No rhonchi, wheezing or crackles. ABDOMINAL EXAM: Soft, nontender, no organomegaly appreciated. GENITOURINARY: No Biswas in place. EXTREMITIES: Pulses can be palpated distally. Denies any tenderness on gross palpation. SKIN: There is a laceration noted on and left forearm and multiple bruises were noted. NEUROLOGICALLY: Grossly cranial nerves 2-12 intact. No motor or sensory deficits noted. ASSESSMENT AND PLAN: 1. Syncope. echo is noted no abnormal telemetry reports for 24 hrs 2. May need Holter monitering 3. Mild exacerbation of chronic obstructive pulmonary disease. 4. Hypertension. 5. Dyslipidemia. 6. Paroxysmal atrial fibrillation. 7. Benign prostatic hypertrophy. 8. Degenerative arthritis. echo from 04/30/17 is reviewed ef 55-60% No abnormalities on telemetry pt did ambulate no cardiac abnormlaities noted hypoxic home o2 due to desaturation during ambulation to around 84% follow up with [facility] may need a holter moniter if recurs discussed driving restriction taper of steroids Patient Condition at Discharge: Fair Plan - Discharge Summary New Discharge Prescriptions: New RX: Doxycycline Hyclate [Vibramycin] 100 mg PO BID #10 cap RX: predniSONE 20 mg PO DAILY #5 tab Continue RX: Omeprazole 20 mg PO DAILY RX: Multivitamins, Thera [Multivitamin (formulary)] 1 tab PO DAILY RX: Apixaban [Eliquis] 5 mg PO BID #60 tab RX: Albuterol Sulfate [Proventil Hfa] 2 puff INHALATION RT-QID PRN #1 hfa.[email or web address] PRN Reason: Shortness Of Breath RX: Budesonide/Formoterol Fumarate [Symbicort 160-4.5 Mcg Inhaler] 2 puff INHALATION RT-BID #1 hfa.aer.ad RX: Metoprolol Tartrate [Lopressor] 12.5 mg PO BID RX: Cyanocobalamin [Vitamin B-12] 500 mcg PO DAILY RX: Tiotropium [place] [Spiriva] 1 cap INHALATION RT-DAILY RX: Lisinopril [Prinivil] 5 mg PO DAILY RX: Ferrous Sulfate [Iron (65 MG Elemental)] 325 mg PO DAILY RX: PARoxetine HCL 40 mg PO DAILY RX: Tamsulosin [Flomax] 0.4 mg PO HS RX: Atorvastatin [Lipitor] 40 mg PO HS Testosterone 20.25mg/Pump Gel 40.5 mg TOPICAL DAILY RX: Aspirin [Adult Low Dose Aspirin EC] 81 mg PO DAILY Discharge Medication List RX: Multivitamins, Thera [Multivitamin (formulary)] 1 tab PO DAILY 03/31/16 [ History] RX: Omeprazole 20 mg PO DAILY 03/31/16 [History] RX: Albuterol Sulfate [Proventil Hfa] 2 puff INHALATION RT-QID PRN #1 hfa.aer.ad 04/02/16 [Rx] RX: Apixaban [Eliquis] 5 mg PO BID #60 tab 04/02/16 [Rx] RX: Budesonide/Formoterol Fumarate [Symbicort 160-4.5 Mcg Inhaler] 2 puff INHALATION RT-BID #1 hfa.aer.ad 04/02/16 [Rx] RX: Atorvastatin [Lipitor] 40 mg PO HS 01/16/17 [History] RX: Cyanocobalamin [Vitamin B-12] 500 mcg PO DAILY 01/16/17 [History] RX: Ferrous Sulfate [Iron (65 MG Elemental)] 325 mg PO DAILY 01/16/17 [History] RX: Lisinopril [Prinivil] 5 mg PO DAILY 01/16/17 [History] RX: Metoprolol Tartrate [Lopressor] 12.5 mg PO BID 01/16/17 [History] RX: PARoxetine HCL 40 mg PO DAILY 01/16/17 [History] RX: Tamsulosin [Flomax] 0.4 mg PO HS 01/16/17 [History] RX: Tiotropium [place] [Spiriva] 1 cap INHALATION RT-DAILY 01/16/17 [History] Testosterone 20.25mg/Pump Gel 40.5 mg TOPICAL DAILY 01/16/17 [History] RX: Aspirin [Adult Low Dose Aspirin EC] 81 mg PO DAILY 04/29/17 [History] RX: Doxycycline Hyclate [Vibramycin] 100 mg PO BID #10 cap 04/30/17 [Rx] RX: predniSONE 20 mg PO DAILY #5 tab 04/30/17 [Rx] Follow up Appointment(s)/Referral(s): Willy Alcantara MD [Primary Care Provider] - 1-2 days Patient Instructions/Handouts: Syncope (DC), COPD (Chronic Obstructive Pulmonary Disease) (DC), Abuse of Alcohol (DC) Activity/Diet/Wound Care/Special Instructions: Please follow up with your freelance interpreter/translator for recommended Holter Monitor Discharge Disposition: HOME SELF-CARE
== END 2017-04-30 14:51 | disposition home or self-care (01) | DRG 192 ==
LOC: EC 05:57 → 6SEL 07:41
PROVIDERS: ADMIT Internal Medicine; ATTEND Internal Medicine
DX: J44.1 Chronic obstructive pulmonary disease with (acute) exacerbation (principal); I48.0 Paroxysmal atrial fibrillation; E11.9 Type 2 diabetes mellitus without complications; R55 Syncope and collapse; I10 Essential (primary) hypertension; E78.5 Hyperlipidemia, unspecified; F31.9 Bipolar disorder, unspecified; N40.0 Benign prostatic hyperplasia without lower urinary tract symptoms; I49.3 Ventricular premature depolarization; M17.11 Unilateral primary osteoarthritis, right knee; M19.041 Primary osteoarthritis, right hand; F41.9 Anxiety disorder, unspecified; K21.9 Gastro-esophageal reflux disease without esophagitis; Z87.891 Personal history of nicotine dependence; Z82.49 Family history of ischemic heart disease and other diseases of the circulatory system; Z88.2 Allergy status to sulfonamides; Z98.1 Arthrodesis status; Z79.01 Long term (current) use of anticoagulants; Z79.82 Long term (current) use of aspirin; Z79.51 Long term (current) use of inhaled steroids; Z79.899 Other long term (current) drug therapy
CPT/HCPCS: 36415; 70450; 71010; 72125; 80053; 80061; 81003; 82550; 82553; 83735; 84439; 84443; 84484; 85025; 85379; 85610; 85730; 93005; 93880; 94640; 94760; 99285

== ENCOUNTER 2017-10-16 12:20 | Emergency (ER) | payer MEDICARE ==
[2017-10-16 12:41] VITALS: RESP 18
[2017-10-16] MEDS ORDERED: methylPREDNISolone SOD SUCCI 125 MG/2 ML VIAL IV STA (12:43)
[2017-10-16] MEDS ORDERED: IPRATROPIUM-ALBUTEROL 3 ML NEB INHALATION STA (12:43)
--- NOTE | 2017-10-16 12:47 | ED ---
SOB HPI - General Chief Complaint: Shortness of Breath Stated Complaint: Hypoglycemia Time Seen by Provider: 10/16/17 12:37 Source: patient, RN notes reviewed Mode of arrival: ambulatory Limitations: no limitations - History of Present Illness Initial Comments: This is a 72-year-old male with a history of COPD and a strong family history of lung cancer who was sent in from [facility] at the present with complaints of cough with clear phlegm. She's been having shortness of breath and exertional dyspnea. Occasional chills. He states he's had chills as is gotten older he states that the caregivers at [facility] that he may have lung cancer and possibly pneumonia. He denies any chest pain nausea vomiting or other symptoms at this time. He does state he just quit smoking 3 days ago after starting again after he was off for many years. 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 MD Complaint: shortness of breath, cough - Related Data Home Medications Medication Instructions Recorded Confirmed Multivitamins, Thera [Multivitamin 1 tab PO DAILY 03/31/16 10/16/17 (formulary)] Omeprazole 20 mg PO DAILY 03/31/16 10/16/17 Atorvastatin [Lipitor] 40 mg PO DAILY 01/16/17 10/16/17 Cyanocobalamin [Vitamin B-12] 500 mcg PO DAILY 01/16/17 10/16/17 Ferrous Sulfate [Iron (65 MG 325 mg PO DAILY 01/16/17 10/16/17 Elemental)] Lisinopril [Prinivil] 5 mg PO DAILY 01/16/17 10/16/17 Metoprolol Tartrate [Lopressor] 12.5 mg PO BID 01/16/17 10/16/17 PARoxetine HCL 40 mg PO DAILY 01/16/17 10/16/17 Tamsulosin [Flomax] 0.4 mg PO DAILY@1300 01/16/17 10/16/17 Testosterone 20.25mg/Pump Gel 40.5 mg TOPICAL DAILY 01/16/17 10/16/17 Cholecalciferol [Vitamin D3] 1,000 unit PO DAILY 10/16/17 10/16/17 Ipratropium-Albuterol Nebulize 3 ml INHALATION RT-QID 10/16/17 10/16/17 [Duoneb 0.5 mg-3 mg/3 ml Soln] Previous Rx's Medication Instructions Recorded Albuterol Sulfate [Proventil Hfa] 2 puff INHALATION RT-QID PRN #1 04/02/16 hfa.aer.ad Apixaban [Eliquis] 5 mg PO BID #60 tab 04/02/16 Azithromycin [Zithromax Tri-Eze] 500 mg PO DAILY #3 tab 10/16/17 predniSONE 20 mg PO BID #10 tab 10/16/17 Allergies Allergy/AdvReac Type Severity Reaction Status Date / Time Sulfa (Sulfonamide Allergy Unknown Verified 10/16/17 13:12 Antibiotics) Review of Systems ROS Statement: Those systems with pertinent positive or pertinent negative responses have been documented in the HPI. ROS Other: All systems not noted in ROS Statement are negative. Past Medical History Past Medical History: Atrial Fibrillation, Atrial Flutter, COPD, GERD/Reflux, Hyperlipidemia, Hypertension, Osteoarthritis (OA), Pneumonia, Prostate Disorder Additional Past Medical History / Comment(s): BPH, bilateral tinnitis, NIDDM- diet controlled, DJD, arthritis R hand and R knee, numbness/tingling R leg, past R arm fracture. History of Any Multi-Drug Resistant Organisms: None Reported Past Surgical History: Back Surgery Additional Past Surgical History / Comment(s): lumbar laminiectomy, revision back surgery, EGD/colonoscopy Past Anesthesia/Blood Transfusion Reactions: No Reported Reaction Past Psychological History: Anxiety, Bipolar Smoking Status: Former smoker Past Alcohol Use History: Daily Past Drug Use History: None Reported - Past Family History Mother Family Medical History: Congestive Heart Failure (CHF) Additional Family Medical History / Comment(s): 4 uncles passed with [place] Sister(s) Family Medical History: Congestive Heart Failure (CHF) Additional Family Medical History / Comment(s): 1 sister from CHF Father Family Medical History: Cancer Additional Family Medical History / Comment(s): of sepsis after lung surgery for suspected cancer General Exam - General Exam Comments Initial Comments: This is a well-developed well-nourished awake alert oriented times 3 male Limitations: no limitations General appearance: alert, in no apparent distress Head exam: Present: atraumatic, normocephalic, normal inspection Eye exam: Present: normal appearance, PERRL, EOMI. Absent: scleral icterus, conjunctival injection, periorbital swelling ENT exam: Present: normal exam, mucous membranes moist Neck exam: Present: normal inspection. Absent: tenderness, meningismus, lymphadenopathy Respiratory exam: Present: decreased breath sounds. Absent: respiratory distress, wheezes, rales, rhonchi, stridor Cardiovascular Exam: Present: regular rate, normal rhythm, normal heart sounds, other (Peripheral pulses are +2 are + with respect to the radial pulses and the dorsalis pedis. Capillary refills less than 2 seconds.). Absent: systolic murmur, diastolic murmur, rubs, gallop, clicks GI/Abdominal exam: Present: soft, normal bowel sounds. Absent: distended, tenderness, guarding, rebound, rigid Extremities exam: Present: normal inspection, full ROM, normal capillary refill. Absent: tenderness, pedal edema, joint swelling, calf tenderness Back exam: Present: normal inspection Neurological exam: Present: alert, oriented X3, CN II-XII intact Psychiatric exam: Present: normal affect, normal mood Skin exam: Present: warm, dry, intact, normal color. Absent: rash Course Vital Signs 10/16/17 10/16/17 10/16/17 12:28 12:40 12:41 Temperature 100.9 F H Pulse Rate 88 98 Respiratory 17 18 18 Rate Blood Pressure 176/78 185/93 O2 Sat by Pulse 90 L 92 L Oximetry 10/16/17 10/16/17 10/16/17 13:01 13:10 13:29 Temperature Pulse Rate 76 80 112 H Respiratory 18 Rate Blood Pressure 142/74 O2 Sat by Pulse 94 L Oximetry 10/16/17 10/16/17 14:57 15:56 Temperature 97.6 F Pulse Rate 84 74 Respiratory 18 18 Rate Blood Pressure 149/71 154/77 O2 Sat by Pulse 94 L 94 L Oximetry Medical Decision Making - Medical Decision Making Patient is feeling improved I did reevaluate him on several occasions he will be discharged with appropriate medication he does have inhalers at home. He will follow-up with his doctor regarding any lung findings. - Lab Data Result diagrams: 10/16/17 12:48 10/16/17 12:48 Lab Results 10/16/17 10/16/17 10/16/17 Range/Units 12:48 12:48 12:48 WBC 7.7 (3.8-10.6) k/uL RBC 4.55 (4.30-5.90) m/uL Hgb 15.0 (13.0-17.5) gm/dL Hct 45.1 (39.0-53.0) % MCV 99.1 (80.0-100.0) fL MCH 32.9 (25.0-35.0) pg MCHC 33.2 (31.0-37.0) g/dL RDW 13.7 (11.5-15.5) % Plt Count 219 (150-450) k/uL Neutrophils % 94 % Lymphocytes % 3 % Monocytes % 3 % Eosinophils % 0 % Basophils % 0 % Neutrophils # 7.2 (1.3-7.7) k/uL Lymphocytes # 0.2 L (1.0-4.8) k/uL Monocytes # 0.2 (0-1.0) k/uL Eosinophils # 0.0 (0-0.7) k/uL Basophils # 0.0 (0-0.2) k/uL PT (9.0-12.0) sec INR (<1.2) APTT (22.0-30.0) sec Sodium 129 L (137-145) mmol/L Potassium 4.5 (3.5-5.1) mmol/L Chloride 93 L (98-107) mmol/L Carbon Dioxide 28 (22-30) mmol/L Anion Gap 8 mmol/L BUN 10 (9-20) mg/dL Creatinine 0.70 (0.66-1.25) mg/dL Est GFR (MDRD) Af Amer >60 (>60 ml/min/1.73 sqM) Est GFR (MDRD) Non-Af >60 (>60 ml/min/1.73 sqM) Glucose 126 H (74-99) mg/dL Plasma Lactic Acid Jan 1.1 (0.7-2.0) mmol/L Calcium 9.6 (8.4-10.2) mg/dL Magnesium (1.6-2.3) mg/dL Total Bilirubin 0.9 (0.2-1.3) mg/dL AST 40 (17-59) U/L ALT 50 (21-72) U/L Alkaline Phosphatase 92 (38-126) U/L Total Protein 6.8 (6.3-8.2) g/dL Albumin 4.4 (3.5-5.0) g/dL Urine Color Urine Appearance (Clear) Urine pH (5.0-8.0) Ur Specific [place] (1.001-1.035) Urine Protein (Negative) Urine Glucose (UA) (Negative) Urine Ketones (Negative) Urine Blood (Negative) Urine Nitrite (Negative) Urine Bilirubin (Negative) Urine Urobilinogen (<2.0) mg/dL Ur Leukocyte Esterase (Negative) 10/16/17 10/16/17 10/16/17 Range/Units 12:48 12:48 13:36 WBC (3.8-10.6) k/uL RBC (4.30-5.90) m/uL Hgb (13.0-17.5) gm/dL Hct (39.0-53.0) % MCV (80.0-100.0) fL MCH (25.0-35.0) pg MCHC (31.0-37.0) g/dL RDW (11.5-15.5) % Plt Count (150-450) k/uL Neutrophils % % Lymphocytes % % Monocytes % % Eosinophils % % Basophils % % Neutrophils # (1.3-7.7) k/uL Lymphocytes # (1.0-4.8) k/uL Monocytes # (0-1.0) k/uL Eosinophils # (0-0.7) k/uL Basophils # (0-0.2) k/uL PT 10.9 (9.0-12.0) sec INR 1.1 (<1.2) APTT 30.5 H (22.0-30.0) sec Sodium (137-145) mmol/L Potassium (3.5-5.1) mmol/L Chloride (98-107) mmol/L Carbon Dioxide (22-30) mmol/L Anion Gap mmol/L BUN (9-20) mg/dL Creatinine (0.66-1.25) mg/dL Est GFR (MDRD) Af Amer (>60 ml/min/1.73 sqM) Est GFR (MDRD) Non-Af (>60 ml/min/1.73 sqM) Glucose (74-99) mg/dL Plasma Lactic Acid Jan (0.7-2.0) mmol/L Calcium (8.4-10.2) mg/dL Magnesium 1.4 L (1.6-2.3) mg/dL Total Bilirubin (0.2-1.3) mg/dL AST (17-59) U/L ALT (21-72) U/L Alkaline Phosphatase (38-126) U/L Total Protein (6.3-8.2) g/dL Albumin (3.5-5.0) g/dL Urine Color Yellow Urine Appearance Clear (Clear) Urine pH 7.0 (5.0-8.0) Ur Specific [place] 1.012 (1.001-1.035) Urine Protein Negative (Negative) Urine Glucose (UA) Negative (Negative) Urine Ketones 1+ H (Negative) Urine Blood Negative (Negative) Urine Nitrite Negative (Negative) Urine Bilirubin Negative (Negative) Urine Urobilinogen <2.0 (<2.0) mg/dL Ur Leukocyte Esterase Negative (Negative) - EKG Data -: EKG Interpreted by Fl EKG shows normal: sinus rhythm (EKG shows a sinus rhythm of 81. Interval 156 QRS 80 QT since QTC of 360/418 poor R-wave progression no acute ST-T wave changes. PACs are noted) - Radiology Data Radiology results: report reviewed (I did review the imaging presented from the clinic no definite acute changes seen.), image reviewed Disposition Clinical Impression: Acute exacerbation of chronic obstructive airways disease, Febrile illness Disposition: HOME SELF-CARE Condition: Good Prescriptions: Azithromycin [Zithromax Tri-Eze] 500 mg PO DAILY #3 tab predniSONE 20 mg PO BID #10 tab Referrals: Willy Alcantara MD [Primary Care Provider] - 1-2 days
[2017-10-16 13:12] LABS: Basophils % (A) 0 %; CH 33.4; CHCM 33.9; Eosinophils % (A) 0 %; HCT 45.1 % (39.0-53.0); HDW 2.04; Luc # (Auto) 0.05; Luc % (Auto) 1; Lymphocytes # (A) 0.2 k/uL (1.0-4.8); Lymphocytes % (A) 3 %; MCH 32.9 pg (25.0-35.0); MCHC 33.2 g/dL (31.0-37.0); MCV 99.1 fL (80.0-100.0); Mean Platelet Volume 6.8; Monocytes # (A) 0.2 k/uL (0-1.0); Monocytes % (A) 3 %; Neutrophils # (A) 7.2 k/uL (1.3-7.7); Neutrophils % (A) 94 %; RBC 4.55 m/uL (4.30-5.90); RDW 13.7 % (11.5-15.5); WBC 7.7 k/uL (3.8-10.6); WBC (Perox) 7.97
[2017-10-16 13:16] LABS: ALT 50 U/L (21-72); AST 40 U/L (17-59); Alkaline Phosphatase 92 U/L (38-126); Anion Gap 8 mmol/L; Blood Urea Nitrogen 10 mg/dL (9-20); Calcium 9.6 mg/dL (8.4-10.2); Carbon Dioxide 28 mmol/L (22-30); Chloride 93 mmol/L (98-107); Glucose 126 mg/dL (74-99); Non-African American GFR(MDRD) >60 (>60 ml/min/1.73 sqM); Potassium 4.5 mmol/L (3.5-5.1); Sodium 129 mmol/L (137-145); Total Bilirubin 0.9 mg/dL (0.2-1.3); Total Protein 6.8 g/dL (6.3-8.2)
[2017-10-16 13:17] LABS: INR 1.1 (<1.2); Partial Thromboplastin Time 30.5 sec (22.0-30.0); Prothrombin Time 10.9 sec (9.0-12.0)
[2017-10-16] MEDS ORDERED: TAMSULOSIN 0.4 MG CAP.ER.24H PO STA (13:22)
[2017-10-16 14:04] LABS: Appearance,Urine Clear (Clear); Bilirubin,Urine Negative (Negative); Glucose,Urine (UA) Negative (Negative); Ketones,Urine 1+ (Negative); Leukocyte Esterase,Urine Negative (Negative); Nitrite,Urine Negative (Negative); Protein,Urine Negative (Negative); Specific Gravity,Urine 1.012 (1.001-1.035); UA Billing (MACRO vs. MICRO) CHEM; Urobilinogen,Urine <2.0 mg/dL (<2.0)
[2017-10-16] MEDS ORDERED: MAGNESIUM SULFATE-D5W PMX 1 GM in DEXTROSE/WATER 1 100ML.BAG IVPB ONE (14:41)
[2017-10-16 15:57] VITALS: BP 154/77; PULSE 74; TEMP 97.6
== END 2017-10-16 16:09 | disposition home or self-care (01) ==
LOC: EC 12:20
DX: J44.1 Chronic obstructive pulmonary disease with (acute) exacerbation (principal); R50.9 Fever, unspecified; I48.92 Unspecified atrial flutter; K21.9 Gastro-esophageal reflux disease without esophagitis; E78.5 Hyperlipidemia, unspecified; I10 Essential (primary) hypertension; M19.90 Unspecified osteoarthritis, unspecified site; N40.0 Benign prostatic hyperplasia without lower urinary tract symptoms; E11.9 Type 2 diabetes mellitus without complications; F31.9 Bipolar disorder, unspecified; F41.9 Anxiety disorder, unspecified; Z87.891 Personal history of nicotine dependence; Z79.899 Other long term (current) drug therapy; Z88.2 Allergy status to sulfonamides
CPT/HCPCS: 36415; 94640; 93005; 80053; 83605; 83735; 85025; 85610; 85730; 81003; 87040; 87086; 99285; 96365; 96375; J2930; J3475

== ENCOUNTER → 2022-03-07 | Outpatient (CLI) | payer MEDICARE ==
--- NOTE | 2022-03-07 10:40 | XR ---
EXAMINATION TYPE: XR chest 2V DATE OF EXAM: 03/07/2022 COMPARISON: 10/16/2017 TECHNIQUE: PA and lateral views submitted. HISTORY: Cough FINDINGS: Diffuse hyperinflation. There are chronic right-sided rib deformities. There is right lower lobe infi ltrate. Chronic deformities of left rib cage noted. Hypertrophic and degenerative changes spine. Athe rosclerotic change aorta. Postsurgical change involving the vertebral column. IMPRESSION: 1. Right lower lobe infiltrate. 2. Diffuse COPD.
== END | disposition home or self-care (01) ==
LOC: RADXRMAIN 10:20
PROVIDERS: ATTEND Internal Medicine
DX: R91.8 Other nonspecific abnormal finding of lung field (principal); J44.9 Chronic obstructive pulmonary disease, unspecified
CPT/HCPCS: 71046

== ENCOUNTER → 2022-03-16 | Outpatient (CLI) | payer MEDICARE ==
--- NOTE | 2022-03-16 09:51 | XR ---
EXAMINATION TYPE: XR chest 2V DATE OF EXAM: 03/16/2022 COMPARISON: 03/07/2022 TECHNIQUE: PA and lateral views submitted. HISTORY: Abnormal chest x-ray FINDINGS: The lungs are clear and there is no pneumothorax, pleural effusion, or focal pneumonia. There is a rib deformity involving the left lower rib cage. Correlate for previous trauma otherwise consider rib lesion. Nodular areas of infiltrate in the right lower lobe persists. Left lung clear. Chronic rib deformity on the right noted. No interstitial edema or pneumothorax. Underlying COPD noted. Arthropathy of the shoulders. Atherosclerotic change aorta. Degenerative change of the spine. IMPRESSION: 1. COPD with right lower lobe infiltrate. 2 bilateral rib deformities
== END | disposition home or self-care (01) ==
LOC: RADXRMAIN 09:16
PROVIDERS: ATTEND Internal Medicine
DX: J44.9 Chronic obstructive pulmonary disease, unspecified (principal); R91.8 Other nonspecific abnormal finding of lung field; M95.4 Acquired deformity of chest and rib; I49.3 Ventricular premature depolarization; R94.31 Abnormal electrocardiogram [ECG] [EKG]; I10 Essential (primary) hypertension
CPT/HCPCS: 71046; 93005

== ENCOUNTER → 2022-03-17 | Outpatient (CLI) | payer MEDICARE ==
[2022-03-17 08:50] LABS: INR 0.9 (<1.2); Partial Thromboplastin Time 28.6 sec (22.0-30.0); Prothrombin Time 10.1 sec (9.0-12.0)
[2022-03-17 11:39] LABS: HCT 36.4 % (39.6-50.0); MCH 31.4 pg (27.0-32.0); MCV 95.3 fL (80.0-97.0); Mean Platelet Volume 8.4 fL (9.5-12.2); NRBC Per 100 WBC 0 /100 WBCS (0.0-0.0); Platelet Count 431 X 10*3/uL (140-440); RBC 3.82 X 10*6/uL (4.40-5.60); RDW 13.3 % (11.5-14.5); WBC 4.34 X 10*3/uL (4.50-10.00)
[2022-03-17 11:44] LABS: Appearance,Urine Clear (Clear); Bilirubin,Urine Negative (Negative); Blood,Urine Negative (Negative); Color,Urine Yellow (Yellow); Ketones,Urine Negative (Negative); Nitrite,Urine Negative (Negative); Specific Gravity,Urine 1.011 (1.001-1.030); Urobilinogen,Urine 0.2 (0.2,1.0)
[2022-03-17 11:51] LABS: African American GFR (CKD) 112.4 (60.0-200.0); Albumin/Globulin Ratio 1.33 (1.60-3.17); Anion Gap 8.3 mmol/L (10.00-18.00); BUN/Creat Ratio 14.67 Ratio (12.00-20.00); Blood Urea Nitrogen 8.8 mg/dL (9.0-27.0); Calcium 9.4 mg/dL (8.7-10.3); Carbon Dioxide 28.7 mmol/L (20.0-27.5); Potassium 5.7 mmol/L (3.5-5.5); Total Bilirubin 0.4 mg/dL (0.30-1.20)
== END | disposition home or self-care (01) ==
LOC: LABPAT 08:08
PROVIDERS: ATTEND Orthopaedic Surgery
DX: Z01.818 Encounter for other preprocedural examination (principal); Z01.812 Encounter for preprocedural laboratory examination
CPT/HCPCS: 80053; 81003; 85027; 85610; 85730; 87070

== ENCOUNTER → 2023-05-31 | Outpatient (CLI) | payer MEDICARE ==
--- NOTE | 2023-06-01 14:19 | PE ---
EXAMINATION TYPE: PET CT fusion skull to thigh DATE OF EXAM: 05/31/2023 CLINICAL INDICATION:Male, 78 years old with history of R91.1; TECHNIQUE: Following the intravenous administration of 12 mCi of F-18 FDG, whole body images are pe rformed from the skull base to the midthigh. Images are reviewed on the computer in the coronal, axi al, and sagittal planes. Reconstructed rotating images are created on independent workstation and re viewed on the computer. A non-contrast CT is performed in conjunction with the PET scan. Glucose le magan 103 mg/dL COMPARISON: CT 02/01/2011, 04/29/2017, PET/CT None, FINDINGS: Mediastinal SUV mean is 1.4. Hepatic parenchyma SUV mean is 1.9 SKULL BASE AND NECK: No suspicious radiotracer activity. CHEST, MEDIASTINUM, AND HILAR REGION: * Severe emphysema changes with streaky basilar atelectasis/scarring. There is mild thickening of th e large airways. * Left upper lung pulmonary nodule measuring 7 mm max SUV 0.3 * Right middle lobe 6 mm pulmonary nodule Max SUV 0.3. ABDOMEN AND PELVIS: No suspicious radiotracer activity. MUSCULOSKELETAL STRUCTURES: No suspicious radiotracer activity. OTHER CT: Atherosclerosis of the arterial vasculature. 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 Bilateral gynecomastia changes. Postsurgical changes of the spine. High-density oral contras t seen within the colon. Right hip arthroplasty changes. Intact. Left femoral head avascular necrosis changes with subchondral curvilinear sclerosis. Left inguinal hernia containing loop of sigmoid colo n. No evidence for obstruction. Remote right-sided posterior rib 11 fracture. IMPRESSION: 1. Left upper lung 7 mm pulmonary nodule with FDG activity below background levels. Consider continu ed surveillance with CT imaging as a somewhat nodules likely below the sensitivity for PET/CT. Short- term follow-up in 3-[address] chest is recommended. 2. Left inguinal hernia containing loop of sigmoid colon. No evidence of obstruction. 3. Emphysema and COPD changes. At a minimum yearly low-dose lung cancer screening is recommended.
== END | disposition home or self-care (01) ==
LOC: RADPETMAIN 10:00
PROVIDERS: ATTEND Internal Medicine
DX: J43.9 Emphysema, unspecified (principal); R91.8 Other nonspecific abnormal finding of lung field; K40.90 Unilateral inguinal hernia, without obstruction or gangrene, not specified as recurrent
CPT/HCPCS: 78815; A9552

== ENCOUNTER 2023-07-19 11:19 | Inpatient (IN) | payer MEDICARE, OTHER ==
--- NOTE | 2023-07-19 05:25 | P.GSHP ---
History of Present Illness H&P Date: 07/19/23 CHIEF COMPLAINT: Inguinal hernia, left. HISTORY OF PRESENT ILLNESS: The patient is a 78-year-old male who presents with a history of swelling and pain along the left groin. He has had previous repair. He's noted increased swelling including pain of the area. Now he presents for repair of his inguinal hernia. PAST MEDICAL HISTORY: Please see list. PAST SURGICAL HISTORY: Please see list. MEDICATIONS: Please see list. ALLERGIES: Please see list. SOCIAL HISTORY: No illicit drug use FAMILY HISTORY: No reports of Crohn disease or ulcerative colitis. REVIEW OF ORGAN SYSTEMS: CONSTITUTIONAL: No reports of fevers or chills. No reports of weight loss despite prior attempts. GI: Has change in bowel habits. PHYSICAL EXAM: VITAL SIGNS: Stable GENERAL: Well-developed pleasant male in no acute distress. HEENT: No scleral icterus. Extraocular movements grossly intact. Moist buccal mucosa. NECK: Supple without lymphadenopathy. CHEST: Unlabored respirations. Equal bilateral excursions. CARDIOVASCULAR: Regular rate and rhythm. Distal 2+ pulses. ABDOMEN: Soft, nondistended. No peritoneal signs. Palpable defect of the left groin. MUSCULOSKELETAL: No clubbing, cyanosis, or edema. ASSESSMENT: 1. Inguinal hernia, left PLAN: 1. Recommend proceeding with a robotic inguinal repair with mesh with possible bilateral approach. 2. Benefits and risks of surgical intervention was discussed including possibility of open technique. 3. DVT prophylaxis. 4. Antibiotic prophylaxis. 5. Non narcotic pain management including abdominal wall block described 6. Blood sugar glucose described. 7. Weight loss management described. Past Medical History Past Medical History: Atrial Fibrillation, Atrial Flutter, COPD, GERD/Reflux, Hypertension, Osteoarthritis (OA), Pneumonia, Prostate Disorder Additional Past Medical History / Comment(s): BPH, tinnitis, Type 2 diabetes- diet controlled, DJD, oxygen at 3 liters prn., states some numbness right foot & right leg slightly weaker from hx of pinched nerves in back., urine leakage- wears depends. emmanuelle legs from knee down with rash, told was from bp being too high, when presses on lower legs leaves a dent.has compression sock coming [facility] aware of lower leg issues History of Any Multi-Drug Resistant Organisms: None Reported Past Surgical History: Back Surgery, Joint Replacement Additional Past Surgical History / Comment(s): back surgery with spinal fusion (2010)., EGD/colonoscopy, ant TRH 04/09/22 Past Anesthesia/Blood Transfusion Reactions: No Reported Reaction Smoking Status: Former smoker - Past Family History Mother Family Medical History: Congestive Heart Failure (CHF) Additional Family Medical History / Comment(s): 4 uncles passed with [place] Sister(s) Family Medical History: Congestive Heart Failure (CHF) Additional Family Medical History / Comment(s): 1 sister from CHF Father Family Medical History: Cancer Additional Family Medical History / Comment(s): of sepsis after lung surgery for suspected cancer Medications and Allergies Home Medications Medication Instructions Recorded Confirmed Type Metoprolol Tartrate [Lopressor] 12.5 mg PO BID 01/16/17 07/15/23 History Ipratropium-Albuterol Nebulize 3 ml INHALATION Q6HR 10/16/17 07/15/23 History [Duoneb 0.5 mg-3 mg/3 ml Soln] Albuterol Inhaler [Ventolin Hfa 2 puff INHALATION Q4-6H PRN 03/22/22 07/15/23 History Inhaler] Alfuzosin HCl [Uroxatral] 10 mg PO DAILY 03/22/22 07/15/23 History Apixaban [Eliquis] 5 mg PO Q12HR 03/22/22 07/15/23 History Finasteride [Proscar] 5 mg PO DAILY 03/22/22 07/15/23 History Mometasone Furoate [Asmanex 2 puff INHALATION BID 03/22/22 07/15/23 History Inhaler] Multivit-Min/Folic/Vit K/Lycop 1 each PO DAILY 03/22/22 07/15/23 History [Men's Multivitamin Tablet] PARoxetine HCL [Paxil] 30 mg PO DAILY 03/22/22 07/15/23 History Tolterodine Tartrate [Detrol LA] 4 mg PO DAILY 03/22/22 07/15/23 History lisinopriL [Zestril] 10 mg PO DAILY 03/22/22 07/15/23 History Sennosides [Senokot] 2 tab PO DAILY PRN #60 tablet 04/09/22 07/15/23 Rx Allergies Allergy/AdvReac Type Severity Reaction Status Date / Time Sulfa (Sulfonamide Allergy BLOOD IN Verified 07/15/23 08:57 Antibiotics) URINE A CHILD
[~2023-07-19 11:19] MED LIST: ACETAMINOPHEN TAB 500 MG TAB PO PRN; HEPARIN SODIUM,PORCINE/PF 5,000 UNIT/0.5 ML SYRINGE SQ PRN; MELOXICAM 7.5 MG TAB PO PRN; ONDANSETRON 4 MG/2 ML VIAL IVP PRN
[2023-07-19] MEDS ORDERED: LACTATED RINGERS 1,000 ML IV ONE (12:10)
[2023-07-19 12:34] LABS: Glucose,Whole Blood 115 mg/dL (70-110)
[2023-07-19] MEDS ORDERED: DEXAMETHASONE SOD PHOSPHATE 4 MG/ML 1 ML VIAL IVP ONE (12:45)
--- NOTE | 2023-07-19 12:52 | XR ---
EXAMINATION TYPE: XR chest 1V portable DATE OF EXAM: 07/19/2023 Comparison: 03/16/2022 Clinical History: 78-year-old male preop hernia repair Findings: Heart normal size. Atherosclerotic arch calcifications. Hyperinflation. No consolidation or pleural e ffusion. Prominent skinfolds projecting over the bilateral upper lobes. Partially visualized lumbar f usion hardware. Old healed posterior right fifth rib fracture. Impression: COPD. No acute process seen.
[2023-07-19] MEDS ORDERED: MIDAZOLAM 2 MG/2 ML VIAL IVP ONE (12:57)
[2023-07-19 13:03] LABS: Basophils % (A) 0 %; Eosinophils % (A) 1 %; HCT 37.6 % (39.0-53.0); HGB 13.1 gm/dL (13.0-17.5); Lymphocytes # (A) 0.8 k/uL (1.0-4.8); Lymphocytes % (A) 16 %; MCH 31.5 pg (25.0-35.0); MCHC 34.8 g/dL (31.0-37.0); MCV 90.7 fL (80.0-100.0); Mean Platelet Volume 7.1; Monocytes # (A) 0.4 k/uL (0-1.0); Monocytes % (A) 7 %; Neutrophils # (A) 3.9 k/uL (1.3-7.7); Neutrophils % (A) 74 %; Platelet Count 281 k/uL (150-450); RBC 4.15 m/uL (4.30-5.90); RDW 12.6 % (11.5-15.5); WBC 5.2 k/uL (3.8-10.6)
[2023-07-19] MEDS ORDERED: METOPROLOL TARTRATE 5 MG/5 ML VIAL IVP ONE (13:07)
[2023-07-19] MEDS ORDERED: hydrALAZINE HCL 20 MG/ML 1 ML VIAL ONE (13:07)
[2023-07-19] MEDS ORDERED: MIDAZOLAM 2 MG/2 ML VIAL ONE (13:07)
[2023-07-19] MEDS ORDERED: NEOSTIGMINE 1 MG/ML 10 ML VIAL ONE (13:07)
[2023-07-19] MEDS ORDERED: PROPOFOL 10 MG/ML 20 ML VIAL IV ONE (13:07)
[2023-07-19] MEDS ORDERED: LIDOCAINE 2% INJ 20 MG/ML (2 ML VIAL) ONE (13:07)
[2023-07-19] MEDS ORDERED: SUCCINYLCHOLINE CHLORIDE 200 MG/10 ML VIAL IV ONE (13:07)
[2023-07-19] MEDS ORDERED: fentaNYL (PF) 50 MCG/ML 2 ML AMP ONE (13:07)
[2023-07-19] MEDS ORDERED: KETAMINE 10 MG/ML 20 ML VIAL ONE (13:07)
[2023-07-19] MEDS ORDERED: GLYCOPYRROLATE 0.2 MG/ML 2 ML VIAL ONE (13:07)
[2023-07-19] MEDS ORDERED: LIDOCAINE 0.5%-EPI 1:200,000 50 ML VIAL SQ ONE (13:12)
[2023-07-19 13:20] LABS: ALT 24 U/L (4-49); AST 35 U/L (17-59); African American GFR (CKD) >90 (>60 ml/min/1.73 sqM); Albumin 4.2 g/dL (3.5-5.0); Alkaline Phosphatase 95 U/L (38-126); Anion Gap 5 mmol/L; Blood Urea Nitrogen 10 mg/dL (9-20); Calcium 9.1 mg/dL (8.4-10.2); Carbon Dioxide 35 mmol/L (22-30); Chloride 79 mmol/L (98-107); Glucose 103 mg/dL (74-99); Non-African American GFR(CKD) >90 (>60 ml/min/1.73 sqM); Potassium 4.2 mmol/L (3.5-5.1); Total Bilirubin 0.9 mg/dL (0.2-1.3); Total Protein 7.5 g/dL (6.3-8.2)
[2023-07-19 14:14] LABS: Sodium 119 mmol/L (137-145)
--- NOTE | 2023-07-19 14:29 | P.ANPRN ---
Procedure Note - Anesthesia - Nerve Block Performed Bilateral Erector Spinae Time Out Performed: Yes (12:56) Date of Procedure: 07/19/23 Procedure Start Time: 12:56 Procedure Stop Time: 13:02 Location of Patient: PreOp Indication: Acute Post-Operative Pain, Requested by Surgeon (Dr Brand) Sedation Type: Sedate with meaningful contact maintained Preparation: Sterile Prep Position: Prone Catheter: None Needle Types: Pajunk Needle Gauge: 21 Ultrasound used to visualize needle placement: Yes Ultrasound used to observe medication spread: Yes Injectate: 0.5% Ropivacaine (see comment for volume) (15cc +10cc PF Normal saline each side) Blood Aspirated: No Pain Paresthesia on Injection Noted: No Resistance on Injection: Normal Image Stored and Saved: Yes Events: Uneventful and Well Tolerated
[2023-07-19] MEDS ORDERED: HYDROmorphone 1 MG/ML 1 ML SYRINGE IVP PRN (14:53)
[2023-07-19] MEDS ORDERED: ONDANSETRON 4 MG/2 ML VIAL IVP PRN (14:53)
[2023-07-19] MEDS ORDERED: NALOXONE 0.4 MG/ML 1 ML VIAL IV PRN (14:53)
[2023-07-19] MEDS ORDERED: ALBUTEROL NEBULIZED 2.5 MG/3 ML INHALATION PRN (14:56)
[2023-07-19] MEDS ORDERED: SENNOSIDES 8.6 MG TAB PO PRN (14:56)
--- NOTE | 2023-07-19 14:59 | P.OP ---
Date of Procedure: 07/19/23 Description of Procedure: SURGEON: MARTA KEANE MD PREOPERATIVE DIAGNOSES: 1. Large left inguinal hernia, recurrent 2. Hyponatremia POSTOPERATIVE DIAGNOSES: 1. Large left inguinal hernia, recurrent with small bowel obstruction OPERATION: 1. Robotic-assisted da Jean-Pierre Xi laparoscopic reduction repair of initial incarcerated right indirect inguinal hernia with mesh, 11.[address] 2. Robotic-assisted da Jean-Pierre Xi laparoscopic appendectomy ANESTHESIA: General with local anesthetic ESTIMATED BLOOD LOSS: 5 mL. SPECIMENS: 1. Incarcerated left inguinal hernia sac COMPLICATIONS: None. FINDINGS: 1. Incarcerated left inguinal hernia over 4 x 3 cm, Nyhus IV, incorporating s mall bowel INDICATIONS: The patient is a 78-year-old male who presents with left inguinal hernia. He reports changes in bowel habits as a result. Now he presents for definitive surgical intervention. Laparoscopic versus open and robotic approaches were discussed including bilateral approach. Benefits and risks including bleeding, infection, chronic groin pain, sterility were reviewed. Placement of mesh was also described. Informed consent was obtained. DESCRIPTION: In the preoperative area, an abdominal block was placed per anesthesia. The patient was brought to the operating room and initially laid in supine position. The abdomen had been prepped and draped in standard sterile fashion. Ioban draping was also placed. Prior to incision, a timeout protocol was confirmed with surgical team regarding patient's name including procedures to be performed. Initial positioning for the robotic assisted ports were selected 20 cm superior to the target anatomy. A 0 degree 5 mm laparoscopic trocar entry was performed at the left upper quadrant. The abdomen was insufflated to 15 mmHg which he tolerated well. Diagnostic laparoscopy demonstrated no injury to bowel, viscera or mesentery. Along the right groin, a large indirect hernia involving incarcerated small bowel was found. The appendix and cecum was being pulled into the hernia sac. Separately, along the left groin was completely secured by the sigmoid colon with adhesions. Next, along the epigastrium, 8 mm robot trocar was placed. An 8-mm robotic trocar was placed under direct visualization at the right upper quadrant. An 8 mm port was placed at the left upper quadrant. All trocars were positioned between 10-cm apart from each other. The [email or web address] XI robot was primed, draped, prepared for docking along u pper abdomen of the patient. The patient was positioned 16 steep Trendelenburg position. I then went to the [email or web address] Xi console. The surgical first assistant was at bedside for exchange of the robot arms and equipment. Attention was brought to the right groin. A large right inguinal defect was confirmed as the small intestine was reduced from the right groin. Next, the right groin defect was measured 4 x 3-cm hernia with the sac extending to the scrotum. A large indirect hernia was confirmed, Nyhus type IV. The right inguinal hernia sac was evaginated whereby the peritoneum was scored using Endo scissors with cautery and vessel sealer . As the hernia sac extended into the groin, partial resection of the sac was done. The peritoneal sac of the hernia was stripped. The sac was resected and then passed off for further pathological analysis. The size of the hernia defect was 4 cm x 3 cm with intraoperative films obtained. Using a 2-0 VLOC nonabsorbable, the peritoneal defect of the right inguinal hernia site was closed using a running suture. The defect was found to be completely closed with complete reduction of the right direct inguinal hernia was confirmed. As an onlay, an 11.[address] mesh by [employer] was cut in half and entered into the abdominal cavity via the 8 mm trocar. The mesh was tacked to the pelvis using 2-0 VLOC 9-inch length sutures. Dense adhesions of the cecum and appendix was identified with appendicolith found. The cecum and appendix were mobilized from the pelvis. Secondary to appendicolith found with chronic changes of chronic appendicitis, the appendix was prepared for resection. The mesoappendix and appendix were mobilized. The trocar along the left upper quadrant were exchanged for 12 mm port. A blue 45 mm staple load was fired across the base of the appendix. A final endoscopic imaging was obtained. The robot was undocked from the patient's bedside. I then rescrubbed into the case. Insufflation was released from the abdominal cavity and all instruments were removed from the abdominal cavity. Pressure was applied along the left groin. The rest of incisions were reapproximated using 4-0 Monocryl in a running subcut icular fashion. Local anesthetic was placed along the incision including for a bilateral groin block. Incisions were cleansed using dilute hydrogen peroxide. Liquid glue was applied to the skin. At the end of the procedure, the needle, sponge and instrument counts had been verified correct by the edger technician. The patient had tolerated the procedure well and was taken to the postanesthesia care unit in stable condition. Plan - Discharge Summary Discharge Rx Participant: No New Discharge Prescriptions: No Action Metoprolol Tartrate [Lopressor] 12.5 mg PO BID Ipratropium-Albuterol Nebulize [Duoneb 0.5 mg-3 mg/3 ml Soln] 3 ml INHALATION Q6HR Albuterol Inhaler [Ventolin Hfa Inhaler] 2 puff INHALATION Q4-6H PRN PRN Reason: Shortness Of Breath lisinopriL [Zestril] 10 mg PO DAILY Mometasone Furoate [Asmanex Inhaler] 2 puff INHALATION BID Tolterodine Tartrate [Detrol LA] 4 mg PO DAILY PARoxetine HCL [Paxil] 30 mg PO DAILY Finasteride [Proscar] 5 mg PO DAILY Apixaban [Eliquis] 5 mg PO Q12HR Alfuzosin HCl [Uroxatral] 10 mg PO DAILY Multivit-Min/Folic/Vit K/Lycop [Men's Multivitamin Tablet] 1 each PO DAILY Sennosides [Senokot] 2 tab PO DAILY PRN #60 tablet PRN Reason: Constipation Discharge Medication List Metoprolol Tartrate [Lopressor] 12.5 mg PO BID 01/16/17 [History] Ipratropium-Albuterol Nebulize [Duoneb 0.5 mg-3 mg/3 ml Soln] 3 ml INHALATION Q6HR 10/16/17 [History] Albuterol Inhaler [Ventolin Hfa Inhaler] 2 puff INHALATION Q4-6H PRN 03/22/22 [History] Alfuzosin HCl [Uroxatral] 10 mg PO DAILY 03/22/22 [History] Apixaban [Eliquis] 5 mg PO Q12HR 03/22/22 [History] Finasteride [Proscar] 5 mg PO DAILY 03/22/22 [History] Mometasone Furoate [Asmanex Inhaler] 2 puff INHALATION BID 03/22/22 [History] Multivit-Min/Folic/Vit K/Lycop [Men's Multivitamin Tablet] 1 each PO DAILY 03/22/22 [History] PARoxetine HCL [Paxil] 30 mg PO DAILY 03/22/22 [History] Tolterodine Tartrate [Detrol LA] 4 mg PO DAILY 03/22/22 [History] lisinopriL [Zestril] 10 mg PO DAILY 03/22/22 [History] Sennosides [Senokot] 2 tab PO DAILY PRN #60 tablet 04/09/22 [Rx]
[2023-07-19] MEDS ORDERED: LACTATED RINGERS 1,000 ML IV SCH (15:13)
[2023-07-19] MEDS ORDERED: MIDAZOLAM 2 MG/2 ML VIAL IV PRN (15:13)
[2023-07-19] MEDS ORDERED: HYDROmorphone 0.5 MG/0.5 ML SYRINGE IVP PRN (15:13)
[2023-07-19 15:55] LABS: Glucose,Whole Blood 139 mg/dL (70-110)
[2023-07-19 15:57] LABS: HCT 35.6 % (39.0-53.0); HGB 12.4 gm/dL (13.0-17.5); MCH 31.4 pg (25.0-35.0); MCHC 34.8 g/dL (31.0-37.0); MCV 90.2 fL (80.0-100.0); Mean Platelet Volume 6.6; Platelet Count 234 k/uL (150-450); RBC 3.95 m/uL (4.30-5.90); RDW 12.7 % (11.5-15.5); WBC 6.4 k/uL (3.8-10.6)
[2023-07-19 16:05] LABS: ALT 20 U/L (4-49); AST 32 U/L (17-59); African American GFR (CKD) >90 (>60 ml/min/1.73 sqM); Albumin 3.6 g/dL (3.5-5.0); Alkaline Phosphatase 90 U/L (38-126); Anion Gap 6 mmol/L; Blood Urea Nitrogen 10 mg/dL (9-20); Calcium 8.7 mg/dL (8.4-10.2); Carbon Dioxide 31 mmol/L (22-30); Chloride 84 mmol/L (98-107); Glucose 134 mg/dL (74-99); Non-African American GFR(CKD) >90 (>60 ml/min/1.73 sqM); Potassium 4.3 mmol/L (3.5-5.1); Sodium 121 mmol/L (137-145); Total Bilirubin 0.6 mg/dL (0.2-1.3); Total Protein 6.7 g/dL (6.3-8.2)
[2023-07-19] MEDS ORDERED: SODIUM CHLORIDE 0.9% 1,000 ML IV ONE (16:29)
[2023-07-19 16:50] LABS: Uric Acid 2.3 mg/dL (3.5-8.5)
[2023-07-19] MEDS: SODIUM CHLORIDE 0.9% 1,000 ML IV SCH (17:52)
--- NOTE | 2023-07-19 18:31 | P.CONS ---
History of Present Illness - Reason for Consult Consult date: 07/19/23 Medical Management Requesting physician: Val Brand - History of Present Illness History of Presenting Illness: Patient is a very pleasant 78-year-old male with a past medical history of atrial fibrillation on anticoagulation with Eliquis, COPD/obstructive sleep apnea home oxygen dependent on 3 L nightly, hypertension, BPH with urinary incontinence, and chronic lower back pain secondary to degenerative disc disease status post spinal fusion. Patient currently admitted under Gen. surgery team with Dr. Jensen status post elective large robotic-assisted da Jean-Pierre laparoscopic reduction and repair of incarcerated hernia with mesh and robotic- assisted da Jean-Pierre laparoscopic appendectomy. Secondary to large left inguinal hernia resulting in recurrent bowel obstructions and changes in bowel habits. Labs drawn during surgery showing patient with significant hypochloremic hyponatremia with sodium of 119 and chloride 79. Consult was placed to our services for medical management of this patient and further evaluation of hyponatremia. Patient was seen and fully evaluated at bedside. Patient currently reports difficulties with urination status post surgical procedure. Otherwise he denies having any pain or discomfort or any other complaints at this time including headache, lightheadedness, dizziness, chest pain, palpitations, shortness of breath, abdominal pain, nausea, vomiting, or experiencing any numbness/tingling/weakness in his extremities. Patient is somewhat of a poor historian regarding previous medical history. Patient states he is not sure when the last time he had labs drawn stating it was at least 6 months ago and maybe last year. He denies ever being told in the past that his sodium was very low. Upon review of chart it does appear patient does have chronic hyponatremia but sodium typically ranges 129-136 and is currently on 119. Review of systems: Pertinent positives and negatives as discussed in HPI, a complete review of systems was performed and all other systems are negative. Physical exam: Vital signs reviewed and stable. General: Nontoxic, no distress and appears stated age. Derm: Skin warm and dry, normal coloration for ethnicity. Head: Atraumatic, normocephalic and symmetric. Eyes: EOMs intact, no lid lag, and anicteric sclera Mouth: no lip lesions, mucus membranes moist Cardiovascular: regular rate and rhythm with normal S1S2, no murmur, positive posterior tibial pulses bilaterally, and cap refill < 2 seconds. Lungs: Respirations even, regular, and unlabored. Lungs CTA bilaterally, no rhonchi, no rales, no wheezing, and no accessory muscle usage. Abdominal: soft, nontender to palpation, no guarding, no appreciable organomegaly Ext: ROM intact. No gross muscle atrophy, 1+ pitting bilateral lower extremity edema, no contractures Neuro: Speech clear, face symmetrical and CN II-XII grossly intact with no noted focal neuro deficits Psych: Alert and oriented to person, place, time, and situation. Appropriate and pleasant affect. Assessment and Plan of Care: Acute on chronic Hypochloremic hyponatremia, unclear etiology -Order placed for hyponatremia workup including serum sodiums every 6 hours, serum osmolality, urine osmolality, urine sodium, uric acid, and TSH. -Patient started on 0.9% normal saline at 50 mL per hour and nursing communication order placed to stop fluids and Hep-Lock IV once sodium reaches 124. -Consult placed to internal revenue service agent and called and discussed plan of care with Dr. Mckeon. -Telemetry monitoring -EKG -Seizure precautions and fall precautions. -Order placed for strict intake and output. -Order placed for bladder scanning and insertion of Biswas catheter if needed for retention. COPD -Order placed for patient to continue home oxygen nightly with nasal cannula and 3 L -Albuterol nebulizer every 4 hours as needed for wheezing and/or shortness of b reath. -Scheduled duo nebs every 6 hours. Paroxysmal Atrial fibrillation -Recommend patient resuming anticoagulation with Eliquis once cleared by general surgeon to resume. BPH -Continue Flomax 0.4 mg daily. -Order placed for bladder scanning Data review: -Vital signs reviewed. Blood pressure currently 136/62, heart rate 98, respiratory rate 16, and SpO2 of 93% on 3 L O2 via nasal cannula. -Labs completed and reviewed. CBC showing no significant abnormalities with WBC count of 5.2, hemoglobin of 13.1, and platelet count of 281. BMP revealing hyponatremia with sodium of 119, hypochloremia with chloride of 79, hypercarbia with bicarb of 35, anion gap 5, and normal renal function with BUN 10, creatinine 0.46, and GFR of > 90. Glucose normal findings at 103 and liver profile unremarkable. Thank you for allowing us to participate in the care of this pleasant patient. Do not hesitate to contact us with questions. Someone can be reached from the [facility] [place] hospitalist group all hours of the day at [phone] or via [employer]. Patient was seen independently by Nurse Practitioner. This document was prepared using [employer] dictation software. Please allow for errors in pet stylist while rare they do occur. [employer] rendered care for this patient independently, reviewed the findings and plan as documented in the note above. I did not physically speak with or examine the patient on this date. Past Medical History Past Medical History: Atrial Fibrillation, Atrial Flutter, COPD, GERD/Reflux, Hypertension, Osteoarthritis (OA), Pneumonia, Prostate Disorder Additional Past Medical History / Comment(s): BPH, tinnitis, Type 2 diabetes- diet controlled, DJD, oxygen at 3 liters prn., states some numbness right foot & right leg slightly weaker from hx of pinched nerves in back., urine leakage- wears depends. emmanuelle legs from knee down with rash, told was from bp being too high, when presses on lower legs leaves a dent.has compression sock coming [facility] dr aware of lower leg issues History of Any Multi-Drug Resistant Organisms: None Reported Past Surgical History: Back Surgery, Joint Replacement Additional Past Surgical History / Comment(s): back surgery with spinal fusion (2010)., EGD/colonoscopy, ant TRH 04/09/22 Past Anesthesia/Blood Transfusion Reactions: No Reported Reaction Smoking Status: Former smoker - Past Family History Mother Family Medical History: Congestive Heart Failure (CHF) Additional Family Medical History / Comment(s): 4 uncles passed with [place] Sister(s) Family Medical History: Congestive Heart Failure (CHF) Additional Family Medical History / Comment(s): 1 sister from CHF Father Family Medical History: Cancer Additional Family Medical History / Comment(s): of sepsis after lung surgery for suspected cancer Medications and Allergies Home Medications Medication Instructions Recorded Confirmed Type Metoprolol Tartrate [Lopressor] 12.5 mg PO BID 01/16/17 07/19/23 History Ipratropium-Albuterol Nebulize 3 ml INHALATION Q6HR 10/16/17 07/19/23 History [Duoneb 0.5 mg-3 mg/3 ml Soln] Albuterol Inhaler [Ventolin Hfa 2 puff INHALATION Q4-6H PRN 03/22/22 07/19/23 History Inhaler] Alfuzosin HCl [Uroxatral] 10 mg PO DAILY 03/22/22 07/19/23 History Apixaban [Eliquis] 5 mg PO Q12HR 03/22/22 07/19/23 History Finasteride [Proscar] 5 mg PO DAILY 03/22/22 07/19/23 History Mometasone Furoate [Asmanex 2 puff INHALATION BID 03/22/22 07/15/23 History Inhaler] Multivit-Min/Folic/Vit K/Lycop 1 each PO DAILY 03/22/22 07/19/23 History [Men's Multivitamin Tablet] PARoxetine HCL [Paxil] 30 mg PO DAILY 03/22/22 07/19/23 History Tolterodine Tartrate [Detrol LA] 4 mg PO DAILY 03/22/22 07/19/23 History lisinopriL [Zestril] 10 mg PO DAILY 03/22/22 07/19/23 History Sennosides [Senokot] 2 tab PO DAILY PRN #60 tablet 04/09/22 07/19/23 Rx Allergies Allergy/AdvReac Type Severity Reaction Status Date / Time Sulfa (Sulfonamide Allergy BLOOD IN Verified 07/19/23 12:12 Antibiotics) URINE A CHILD Physical Exam Vitals: Vital Signs Temp Pulse Pulse Resp BP Pulse Ox 07/19/23 15:45 86 16 142/69 94 L 07/19/23 15:30 86 16 140/70 07/19/23 15:15 88 15 149/75 100 07/19/23 14:59 97.3 F L 92 164/77 100 07/19/23 13:05 96 15 142/65 92 L 07/19/23 12:10 97.3 F L 72 16 143/71 94 L Intake and Output 07/19/23 07/19/23 07/19/23 06:59 14:59 22:59 Intake Total 850 0 Output Total 5 Balance 845 0 Intake: IV 850 0 Output: Estimated Blood Loss 5 Other: Weight 64.6 kg Results CBC & Chem 7: 07/20/23 03:47 07/20/23 14:26 Labs: Abnormal Lab Results - Last 24 Hours (Table) 07/19/23 07/19/23 07/19/23 Range/Units 12:26 12:26 12:32 RBC 4.15 L (4.30-5.90) m/uL Hgb (13.0-17.5) gm/dL Hct 37.6 L (39.0-53.0) % Lymphocytes # 0.8 L (1.0-4.8) k/uL Sodium 119 L* (137-145) mmol/L Chloride 79 L (98-107) mmol/L Carbon Dioxide 35 H (22-30) mmol/L Creatinine 0.46 L (0.66-1.25) mg/dL Glucose 103 H (74-99) mg/dL POC Glucose (mg/dL) 115 H (70-110) mg/dL 07/19/23 07/19/23 Range/Units 15:27 15:52 RBC 3.95 L (4.30-5.90) m/uL Hgb 12.4 L (13.0-17.5) gm/dL Hct 35.6 L (39.0-53.0) % Lymphocytes # (1.0-4.8) k/uL Sodium (137-145) mmol/L Chloride (98-107) mmol/L Carbon Dioxide (22-30) mmol/L Creatinine (0.66-1.25) mg/dL Glucose (74-99) mg/dL POC Glucose (mg/dL) 139 H (70-110) mg/dL
[2023-07-19 20:19] LABS: Glucose,Whole Blood 194 mg/dL (70-110)
[2023-07-19 20:27] LABS: African American GFR (CKD) >90 (>60 ml/min/1.73 sqM); Anion Gap 3 mmol/L; Blood Urea Nitrogen 12 mg/dL (9-20); Calcium 8.6 mg/dL (8.4-10.2); Carbon Dioxide 34 mmol/L (22-30); Chloride 82 mmol/L (98-107); Glucose 143 mg/dL (74-99); Non-African American GFR(CKD) >90 (>60 ml/min/1.73 sqM); Potassium 4.5 mmol/L (3.5-5.1)
[2023-07-19 21:08] LABS: Sodium 119 mmol/L (137-145)
[2023-07-19] MEDS: METOPROLOL TARTRATE 12.5 MG TAB PO SCH (21:39)
[2023-07-19] MEDS: FLUTICASONE 220 MCG INHALER INHALATION SCH (21:49)
[2023-07-19] MEDS: IPRATROPIUM-ALBUTEROL 3 ML NEB INHALATION SCH (21:49)
[2023-07-20] MEDS: IPRATROPIUM-ALBUTEROL 3 ML NEB INHALATION SCH ×4 (01:15→21:44)
[2023-07-20 02:22] LABS: African American GFR (CKD) >90 (>60 ml/min/1.73 sqM); Anion Gap 1 mmol/L; Blood Urea Nitrogen 13 mg/dL (9-20); Calcium 8.4 mg/dL (8.4-10.2); Carbon Dioxide 31 mmol/L (22-30); Chloride 85 mmol/L (98-107); Glucose 139 mg/dL (74-99); Non-African American GFR(CKD) >90 (>60 ml/min/1.73 sqM); Potassium 4.4 mmol/L (3.5-5.1)
[2023-07-20 02:48] LABS: Sodium 117 mmol/L (137-145)
[2023-07-20] MEDS ORDERED: SODIUM CHLORIDE 3%(HYPERTONIC) 500 ML IV ONE ×2 (02:58→23:15)
[2023-07-20 03:29] LABS: Glucose,Whole Blood 112 mg/dL (70-110)
[2023-07-20 04:29] LABS: Basophils % (A) 0 %; Eosinophils % (A) 0 %; HCT 33.1 % (39.0-53.0); HGB 11.5 gm/dL (13.0-17.5); Lymphocytes % (A) 14 %; MCH 31.5 pg (25.0-35.0); MCHC 34.7 g/dL (31.0-37.0); MCV 90.7 fL (80.0-100.0); Monocytes # (A) 0.5 k/uL (0-1.0); Monocytes % (A) 7 %; Neutrophils # (A) 5.3 k/uL (1.3-7.7); Neutrophils % (A) 76 %; Platelet Count 246 k/uL (150-450); RBC 3.65 m/uL (4.30-5.90); RDW 12.8 % (11.5-15.5)
[2023-07-20 05:01] LABS: ALT 17 U/L (4-49); AST 34 U/L (17-59); African American GFR (CKD) >90 (>60 ml/min/1.73 sqM); Albumin 3.1 g/dL (3.5-5.0); Alkaline Phosphatase 85 U/L (38-126); Anion Gap 2 mmol/L; Blood Urea Nitrogen 12 mg/dL (9-20); Calcium 8.6 mg/dL (8.4-10.2); Carbon Dioxide 32 mmol/L (22-30); Chloride 85 mmol/L (98-107); Glucose 100 mg/dL (74-99); Non-African American GFR(CKD) >90 (>60 ml/min/1.73 sqM); Phosphorus 3.6 mg/dL (2.5-4.5); Potassium 4.4 mmol/L (3.5-5.1); Total Bilirubin 0.5 mg/dL (0.2-1.3)
[2023-07-20 05:13] LABS: Sodium 119 mmol/L (137-145)
[2023-07-20] MEDS: TAMSULOSIN 0.4 MG CAP.ER.24H PO SCH (08:25)
[2023-07-20] MEDS: METOPROLOL TARTRATE 12.5 MG TAB PO SCH ×2 (08:25→20:01)
[2023-07-20] MEDS: ENOXAPARIN 30 MG/0.3 ML SYRINGE SQ SCH (08:25)
[2023-07-20] MEDS: FLUTICASONE 220 MCG INHALER INHALATION SCH ×2 (08:45→21:44)
[2023-07-20] MEDS: FINASTERIDE 5 MG TAB PO SCH (08:45)
[2023-07-20] MEDS: OXYBUTYNIN 10 MG TAB.ER.24 PO SCH (08:45)
[2023-07-20] MEDS: PARoxetine 10 MG TAB PO SCH (08:46)
--- NOTE | 2023-07-20 08:51 | P.PN ---
Subjective Progress Note Date: 07/20/23 Principal diagnosis: Left inguinal hernia Patient was admitted to the ICU because the sodium was 117. He otherwise feels well. No pain. He was hoping to go home today. No nausea or vomiting. Recent sodium 120. Objective - Vital Signs Vital signs: Vital Signs Temp 98.6 F 07/20/23 08:00 Pulse 67 07/20/23 08:00 Resp 13 07/20/23 08:00 BP 139/68 07/20/23 08:00 Pulse Ox 99 07/20/23 08:00 FiO2 Intake & Output 07/19/23 07/20/23 07/20/23 18:59 06:59 18:59 Intake Total 1380 325 25 Output Total 505 1650 160 Balance 875 -1325 -135 Weight 64.6 kg Intake: IV 900 75 25 Sodium Chloride 3%( 75 25 Hypertonic) 500 ml @ 25 mls/hr IV .Q20H ONE Rx#: [id number] Intake, IV Titration 250 Amount Sodium Chloride 0.9% 1, 250 000 ml @ 50 mls/hr IV . Q20H [facility] Rx#:[id number] Oral 480 Output: Urine 500 1650 160 Uretheral (Biswas) 500 Estimated Blood Loss 5 Other: Voiding Method Indwelling Catheter - Exam Abdomen: Soft, nondistended, incisions clean and dry, minimal tenderness - Labs CBC & Chem 7: 07/20/23 03:47 07/20/23 07:01 Labs: Abnormal Lab Results - Last 24 Hours (Table) 07/19/23 07/19/23 07/19/23 Range/Units 12:26 12:26 12:32 RBC 4.15 L (4.30-5.90) m/uL Hgb (13.0-17.5) gm/dL Hct 37.6 L (39.0-53.0) % Lymphocytes # 0.8 L (1.0-4.8) k/uL Sodium 119 L* (137-145) mmol/L Chloride 79 L (98-107) mmol/L Carbon Dioxide 35 H (22-30) mmol/L Creatinine 0.46 L (0.66-1.25) mg/dL Glucose 103 H (74-99) mg/dL POC Glucose (mg/dL) 115 H (70-110) mg/dL Osmolality (280-301) mosm/kg Uric Acid (3.5-8.5) mg/dL Total Protein (6.3-8.2) g/dL Albumin (3.5-5.0) g/dL 07/19/23 07/19/23 07/19/23 Range/Units 15:27 15:27 15:52 RBC 3.95 L (4.30-5.90) m/uL Hgb 12.4 L (13.0-17.5) gm/dL Hct 35.6 L (39.0-53.0) % Lymphocytes # (1.0-4.8) k/uL Sodium 121 L (137-145) mmol/L Chloride 84 L (98-107) mmol/L Carbon Dioxide 31 H (22-30) mmol/L Creatinine 0.44 L (0.66-1.25) mg/dL Glucose 134 H (74-99) mg/dL POC Glucose (mg/dL) 139 H (70-110) mg/dL Osmolality 258 L (280-301) mosm/kg Uric Acid 2.3 L (3.5-8.5) mg/dL Total Protein (6.3-8.2) g/dL Albumin (3.5-5.0) g/dL 07/19/23 07/19/23 07/20/23 Range/Units 19:45 20:17 01:46 RBC (4.30-5.90) m/uL Hgb (13.0-17.5) gm/dL Hct (39.0-53.0) % Lymphocytes # (1.0-4.8) k/uL Sodium 119 L* 117 L* (137-145) mmol/L Chloride 82 L 85 L (98-107) mmol/L Carbon Dioxide 34 H 31 H (22-30) mmol/L Creatinine 0.59 L 0.49 L (0.66-1.25) mg/dL Glucose 143 H 139 H (74-99) mg/dL POC Glucose (mg/dL) 194 H (70-110) mg/dL Osmolality (280-301) mosm/kg Uric Acid (3.5-8.5) mg/dL Total Protein (6.3-8.2) g/dL Albumin (3.5-5.0) g/dL 07/20/23 07/20/23 07/20/23 Range/Units 03:27 03:47 03:47 RBC 3.65 L (4.30-5.90) m/uL Hgb 11.5 L (13.0-17.5) gm/dL Hct 33.1 L (39.0-53.0) % Lymphocytes # (1.0-4.8) k/uL Sodium 119 L* (137-145) mmol/L Chloride 85 L (98-107) mmol/L Carbon Dioxide 32 H (22-30) mmol/L Creatinine 0.54 L (0.66-1.25) mg/dL Glucose 100 H (74-99) mg/dL POC Glucose (mg/dL) 112 H (70-110) mg/dL Osmolality (280-301) mosm/kg Uric Acid (3.5-8.5) mg/dL Total Protein 6.0 L (6.3-8.2) g/dL Albumin 3.1 L (3.5-5.0) g/dL 07/20/23 07/20/23 Range/Units 03:47 07:01 RBC (4.30-5.90) m/uL Hgb (13.0-17.5) gm/dL Hct (39.0-53.0) % Lymphocytes # (1.0-4.8) k/uL Sodium 119 L* 120 L (137-145) mmol/L Chloride (98-107) mmol/L Carbon Dioxide (22-30) mmol/L Creatinine (0.66-1.25) mg/dL Glucose (74-99) mg/dL POC Glucose (mg/dL) (70-110) mg/dL Osmolality (280-301) mosm/kg Uric Acid (3.5-8.5) mg/dL Total Protein (6.3-8.2) g/dL Albumin (3.5-5.0) g/dL Assessment and Plan (1) Left inguinal hernia Narrative/Plan: 78-year-old male doing well after recent inguinal hernia repair. Unfortunately sodium remains somewhat low. Await nephrology consultation. Ultimately will defer to them for timing of discharge. Current Visit: No Status: Acute Code(s): K40.90 - UNIL INGUINAL HERNIA, W/O OBST OR GANGR, NOT SPCF RECUR SNOMED Code(s): 856671820
[2023-07-20] MEDS ORDERED: lisinopriL 10 MG TAB PO SCH (09:00)
[2023-07-20 10:00] VITALS: BMI 20.4
--- NOTE | 2023-07-20 11:14 | P.CNPUL ---
History of Present Illness Consult date: 07/20/23 Chief complaint: Hyponatremia History of present illness: This is a 78-year-old male patient was currently in the intensive care unit for hyponatremia and the patient is on a 3% hypertonic saline solution. Mental status is adequate and the patient is not having any seizure activity or altered mentation. He is known to have COPD/obstructive sleep apnea, in addition to history of atrial fibrillation and his current cardiac rhythm is sinus, h ypertension, BPH, and the patient has degenerative spine disease and the patient has undergone previous spinal fusion. The patient was admitted for elective robotic-assisted reduction and repair of a incarcerated hernia with mesh and laparoscopic appendectomy. Surgical surgery was done on 07/19/2023. Following his surgery, the patient's sodium was noted to be low. In fact his initial sodium was 121 and dropped to 117 and following hypertonic saline solution, his sodium is gradually improved and is currently up to 20. His chloride is 85 with a BUN of 12 and a creatinine of 0.5. The potassium level is at 4.4. No history of malignancy. His chest x-ray from 04/18/2023 showed no acute abnormalities. Past Medical History Past Medical History: Atrial Fibrillation, Atrial Flutter, COPD, GERD/Reflux, Hypertension, Osteoarthritis (OA), Pneumonia, Prostate Disorder Additional Past Medical History / Comment(s): BPH, tinnitis, Type 2 diabetes- diet controlled, DJD, oxygen at 3 liters prn., states some numbness right foot & right leg slightly weaker from hx of pinched nerves in back., urine leakage- wears depends. emmanuelle legs from knee down with rash, told was from bp being too high, when presses on lower legs leaves a dent.has compression sock coming [facility] dr aware of lower leg issues History of Any Multi-Drug Resistant Organisms: None Reported Past Surgical History: Back Surgery, Joint Replacement Additional Past Surgical History / Comment(s): back surgery with spinal fusion (2010)., EGD/colonoscopy, ant TRH 04/09/22 Past Anesthesia/Blood Transfusion Reactions: No Reported Reaction Smoking Status: Former smoker - Past Family History Mother Family Medical History: Congestive Heart Failure (CHF) Additional Family Medical History / Comment(s): 4 uncles passed with [place] Sister(s) Family Medical History: Congestive Heart Failure (CHF) Additional Family Medical History / Comment(s): 1 sister from CHF Father Family Medical History: Cancer Additional Family Medical History / Comment(s): of sepsis after lung surgery for suspected cancer Medications and Allergies Home Medications Medication Instructions Recorded Confirmed Type Metoprolol Tartrate [Lopressor] 12.5 mg PO BID 01/16/17 07/19/23 History Ipratropium-Albuterol Nebulize 3 ml INHALATION Q6HR 10/16/17 07/19/23 History [Duoneb 0.5 mg-3 mg/3 ml Soln] Albuterol Inhaler [Ventolin Hfa 2 puff INHALATION Q4-6H PRN 03/22/22 07/19/23 History Inhaler] Alfuzosin HCl [Uroxatral] 10 mg PO DAILY 03/22/22 07/19/23 History Apixaban [Eliquis] 5 mg PO Q12HR 03/22/22 07/19/23 History Finasteride [Proscar] 5 mg PO DAILY 03/22/22 07/19/23 History Mometasone Furoate [Asmanex 2 puff INHALATION BID 03/22/22 07/15/23 History Inhaler] Multivit-Min/Folic/Vit K/Lycop 1 each PO DAILY 03/22/22 07/19/23 History [Men's Multivitamin Tablet] PARoxetine HCL [Paxil] 30 mg PO DAILY 03/22/22 07/19/23 History Tolterodine Tartrate [Detrol LA] 4 mg PO DAILY 03/22/22 07/19/23 History lisinopriL [Zestril] 10 mg PO DAILY 03/22/22 07/19/23 History Sennosides [Senokot] 2 tab PO DAILY PRN #60 tablet 04/09/22 07/19/23 Rx Allergies Allergy/AdvReac Type Severity Reaction Status Date / Time Sulfa (Sulfonamide Allergy BLOOD IN Verified 07/19/23 12:12 Antibiotics) URINE A CHILD Physical Exam Vitals: Vital Signs Temp Pulse Pulse Pulse Resp BP BP 07/20/23 11:00 53 L 20 129/68 07/20/23 10:00 66 15 123/82 07/20/23 09:00 76 18 124/67 07/20/23 08:49 72 07/20/23 08:00 98.6 F 67 13 139/68 07/20/23 07:00 72 18 139/68 07/20/23 06:00 64 20 149/85 07/20/23 05:00 64 12 138/76 07/20/23 04:00 98.1 F 65 12 138/79 07/20/23 02:00 81 18 07/19/23 23:48 97.7 F 81 18 110/59 07/19/23 20:00 97.2 F L 98 18 129/75 07/19/23 19:11 97.7 F 96 18 136/72 07/19/23 16:25 90 16 126/75 07/19/23 16:15 98 16 136/62 07/19/23 15:45 86 16 142/69 07/19/23 15:30 86 16 140/70 07/19/23 15:15 88 15 149/75 07/19/23 14:59 97.3 F L 92 164/77 07/19/23 13:05 96 15 142/65 07/19/23 12:10 97.3 F L 72 16 143/71 Pulse Ox 07/20/23 11:00 100 07/20/23 10:00 97 07/20/23 09:00 99 07/20/23 08:49 07/20/23 08:00 99 07/20/23 07:00 97 07/20/23 06:00 100 07/20/23 05:00 100 07/20/23 04:00 98 07/20/23 02:00 07/19/23 23:48 98 07/19/23 20:00 97 07/19/23 19:11 94 L 07/19/23 16:25 96 07/19/23 16:15 93 L 07/19/23 15:45 94 L 07/19/23 15:30 07/19/23 15:15 100 07/19/23 14:59 100 07/19/23 13:05 92 L 07/19/23 12:10 94 L Intake and Output 07/19/23 07/20/23 07/20/23 22:59 06:59 14:59 Intake Total 530 325 160 Output Total 500 1650 274 Balance 30 1325 -114 Intake: IV 50 75 160 Sodium Chloride 0.9% 1, 60 000 ml @ 50 mls/hr IV . Q20H [facility] Rx#:[id number] Sodium Chloride 3%( 75 100 Hypertonic) 500 ml @ 25 mls/hr IV .Q20H [facility] Rx#: [id number] Intake, IV Titration 250 Amount Sodium Chloride 0.9% 1, 250 000 ml @ 50 mls/hr IV . Q20H [facility] Rx#:[id number] Oral 480 Output: Urine 500 1650 274 Uretheral (Biswas) 500 Other: Voiding Method Indwelling Catheter Indwelling Catheter Indwelling Catheter Weight 64.6 kg General: Nontoxic, no distress and appears stated age. Derm: Skin warm and dry, normal coloration for ethnicity. Head: Atraumatic, normocephalic and symmetric. Eyes: EOMs intact, no lid lag, and anicteric sclera Mouth: no lip lesions, mucus membranes moist Cardiovascular: regular rate and rhythm with normal S1S2, no murmur, positive posterior tibial pulses bilaterally, and cap refill < 2 seconds. Lungs: Respirations even, regular, and unlabored. Lungs CTA bilaterally, no rhonchi, no rales, no wheezing, and no accessory muscle usage. Abdominal: soft, nontender to palpation, no guarding, no appreciable organomegaly Ext: ROM intact. No gross muscle atrophy, 1+ pitting bilateral lower extremity edema, no contractures Neuro: Speech clear, face symmetrical and CN II-XII grossly intact with no noted focal neuro deficits Psych: Alert and oriented to person, place, time, and situation. Appropriate and pleasant affect. Results - Laboratory Findings CBC and BMP: 07/20/23 03:47 07/20/23 07:01 Abnormal lab findings: Abnormal Labs 07/19/23 07/19/23 07/19/23 12:26 12:26 12:32 RBC 4.15 L Hgb Hct 37.6 L Lymphocytes # 0.8 L Sodium 119 L* Chloride 79 L Carbon Dioxide 35 H Creatinine 0.46 L Glucose 103 H POC Glucose (mg/dL) 115 H Osmolality Uric Acid Total Protein Albumin 07/19/23 07/19/23 07/19/23 15:27 15:27 15:52 RBC 3.95 L Hgb 12.4 L Hct 35.6 L Lymphocytes # Sodium 121 L Chloride 84 L Carbon Dioxide 31 H Creatinine 0.44 L Glucose 134 H POC Glucose (mg/dL) 139 H Osmolality 258 L Uric Acid 2.3 L Total Protein Albumin 07/19/23 07/19/23 07/20/23 19:45 20:17 01:46 RBC Hgb Hct Lymphocytes # Sodium 119 L* 117 L* Chloride 82 L 85 L Carbon Dioxide 34 H 31 H Creatinine 0.59 L 0.49 L Glucose 143 H 139 H POC Glucose (mg/dL) 194 H Osmolality Uric Acid Total Protein Albumin 07/20/23 07/20/23 07/20/23 03:27 03:47 03:47 RBC 3.65 L Hgb 11.5 L Hct 33.1 L Lymphocytes # Sodium 119 L* Chloride 85 L Carbon Dioxide 32 H Creatinine 0.54 L Glucose 100 H POC Glucose (mg/dL) 112 H Osmolality Uric Acid Total Protein 6.0 L Albumin 3.1 L 07/20/23 07/20/23 03:47 07:01 RBC Hgb Hct Lymphocytes # Sodium 119 L* 120 L Chloride Carbon Dioxide Creatinine Glucose POC Glucose (mg/dL) Osmolality Uric Acid Total Protein Albumin Assessment and Plan Plan: Hyponatremia, sodium level as well as 117, and the patient had hyponatremia even preoperatively. His urine osmolality and sodium is not typical of SIADH. The patient is euvolemic at this point in time. He is currently on hypertonic saline at 3%.. No altered mentation. No lip neurologic manifestation. The patient himself drinks excessive amount of water and he also drinks beer on a daily basis which could've contributed to his ongoing hyponatremia. Laparoscopic right inguinal hernia repair with insertion of a mesh in addition appendectomy and this was done robotic-assisted COPD currently inactive and stable, currently on 2 L of O2 nasal cannula History of a atrial fibrillation current rhythm is sinus Hypertension Osteoarthritis BPH Diabetes mellitus type 2 Degenerative spine disease and the patient has undergone previous spine surgery/effusion. Plan Restrict fluid intake to less than 1.5 L on a daily basis Continue hypertonic saline and monitor the sodium level every 4 hours and stop once the sodium level is at 122 Patient drinks excessive amount of water and beer. This should be restricted. No mental status changes this point in time Lovenox 30 mg subcu portably prophylaxis, consider starting at the coagulation with Eliquis once cleared by general surgery. Dilaudid for pain control Rest of the medications are continued Provide the patient incentive spirometer Sliding-scale insulin coverage We'll continue to follow
[2023-07-20 11:33] LABS: Glucose,Whole Blood 130 mg/dL (70-110)
[2023-07-20] MEDS: SODIUM CHLORIDE 0.9% 1,000 ML IV SCH (12:10)
--- NOTE | 2023-07-20 13:13 | P.PN ---
Subjective Progress Note Date: 07/20/23 Subjective: Patient seen and examined at bedside. No acute events overnight. Biswas c atheter in place. Pertinent positives and negatives as discussed above, a complete review of systems was performed and all other systems are negative. Vitals Signs Reviewed. General: nontoxic, no distress, appears at stated age Derm: warm, dry, abdominal binder Head: atraumatic, normocephalic, symmetric Eyes: EOMI, no lid lag, anicteric sclera Mouth: no lip lesion, mucus membranes moist Cardiovascular: S1S2 reg, no murmur Lungs: CTA bilateral, no rhonchi, no rales , no accessory muscle use Abdominal: soft, nontender to palpation, no guarding, no appreciable organomegaly Ext: no gross muscle atrophy, no edema, no contractures Neuro: CN II-XI grossly intact, no focal neuro deficits Psych: Alert, oriented, appropriate affect Data Reviewed Today: Pertinent Labs: Imaging: Assessment and Plan: Acute on chronic Hypochloremic hyponatremia, likely euvolemic COPD, without exacerbation Paroxysmal Atrial fibrillation, currently in sinus BPH Hypertension Status post laparoscopic right inguinal hernia repair -ICU note reviewed, fluid restriction of 1.5 L daily -Nephrology consulted -On hypertonic saline -Normal saline at 50 mL an hour discontinued -Holding Eliquis, restart when cleared by surgery, currently on Lovenox for DVT prophylaxis -Rest of the home medications reviewed, continue Thank you for allowing us to participate in the care of this pleasant patient. Do not hesitate to contact us with questions. Someone can be reached from the [facility] hospitalist group all hours of the day at [phone] or via perfect serve. Objective - Vital Signs Vital signs: Vital Signs Temp 98.3 F 07/20/23 12:00 Pulse 61 07/20/23 13:00 Resp 15 07/20/23 13:00 BP 122/69 07/20/23 13:00 Pulse Ox 98 07/20/23 13:00 FiO2 50 07/20/23 13:00 Intake & Output 07/19/23 07/20/23 07/20/23 18:59 06:59 18:59 Intake Total 1380 325 225 Output Total 505 1650 479 Balance 334 -1534 -941 Weight 64.6 kg 64.6 kg Intake: IV 900 75 225 Sodium Chloride 0.9% 1, 50 000 ml @ 50 mls/hr IV . Q20H [facility] Rx#:[id number] Sodium Chloride 3%( 75 175 Hypertonic) 500 ml @ 25 mls/hr IV .Q20H [facility] Rx#: [id number] Intake, IV Titration 250 Amount Sodium Chloride 0.9% 1, 250 000 ml @ 50 mls/hr IV . Q20H [facility] Rx#:[id number] Oral 480 Output: Urine 500 1650 479 Uretheral (Biswas) 500 Estimated Blood Loss 5 Other: Voiding Method Indwelling Catheter Indwelling Catheter - Labs CBC & Chem 7: 07/20/23 03:47 07/20/23 10:58 Labs: Abnormal Lab Results - Last 24 Hours (Table) 07/19/23 07/19/23 07/19/23 Range/Units 12:26 15:27 15:27 RBC 3.95 L (4.30-5.90) m/uL Hgb 12.4 L (13.0-17.5) gm/dL Hct 35.6 L (39.0-53.0) % Sodium 119 L* 121 L (137-145) mmol/L Chloride 79 L 84 L (98-107) mmol/L Carbon Dioxide 35 H 31 H (22-30) mmol/L Creatinine 0.46 L 0.44 L (0.66-1.25) mg/dL Glucose 103 H 134 H (74-99) mg/dL POC Glucose (mg/dL) (70-110) mg/dL Osmolality 258 L (280-301) mosm/kg Uric Acid 2.3 L (3.5-8.5) mg/dL Total Protein (6.3-8.2) g/dL Albumin (3.5-5.0) g/dL 07/19/23 07/19/23 07/19/23 Range/Units 15:52 19:45 20:17 RBC (4.30-5.90) m/uL Hgb (13.0-17.5) gm/dL Hct (39.0-53.0) % Sodium 119 L* (137-145) mmol/L Chloride 82 L (98-107) mmol/L Carbon Dioxide 34 H (22-30) mmol/L Creatinine 0.59 L (0.66-1.25) mg/dL Glucose 143 H (74-99) mg/dL POC Glucose (mg/dL) 139 H 194 H (70-110) mg/dL Osmolality (280-301) mosm/kg Uric Acid (3.5-8.5) mg/dL Total Protein (6.3-8.2) g/dL Albumin (3.5-5.0) g/dL 07/20/23 07/20/23 07/20/23 Range/Units 01:46 03:27 03:47 RBC (4.30-5.90) m/uL Hgb (13.0-17.5) gm/dL Hct (39.0-53.0) % Sodium 117 L* 119 L* (137-145) mmol/L Chloride 85 L 85 L (98-107) mmol/L Carbon Dioxide 31 H 32 H (22-30) mmol/L Creatinine 0.49 L 0.54 L (0.66-1.25) mg/dL Glucose 139 H 100 H (74-99) mg/dL POC Glucose (mg/dL) 112 H (70-110) mg/dL Osmolality (280-301) mosm/kg Uric Acid (3.5-8.5) mg/dL Total Protein 6.0 L (6.3-8.2) g/dL Albumin 3.1 L (3.5-5.0) g/dL 07/20/23 07/20/23 07/20/23 Range/Units 03:47 03:47 07:01 RBC 3.65 L (4.30-5.90) m/uL Hgb 11.5 L (13.0-17.5) gm/dL Hct 33.1 L (39.0-53.0) % Sodium 119 L* 120 L (137-145) mmol/L Chloride (98-107) mmol/L Carbon Dioxide (22-30) mmol/L Creatinine (0.66-1.25) mg/dL Glucose (74-99) mg/dL POC Glucose (mg/dL) (70-110) mg/dL Osmolality (280-301) mosm/kg Uric Acid (3.5-8.5) mg/dL Total Protein (6.3-8.2) g/dL Albumin (3.5-5.0) g/dL 07/20/23 07/20/23 Range/Units 10:58 11:31 RBC (4.30-5.90) m/uL Hgb (13.0-17.5) gm/dL Hct (39.0-53.0) % Sodium 121 L (137-145) mmol/L Chloride (98-107) mmol/L Carbon Dioxide (22-30) mmol/L Creatinine (0.66-1.25) mg/dL Glucose (74-99) mg/dL POC Glucose (mg/dL) 130 H (70-110) mg/dL Osmolality (280-301) mosm/kg Uric Acid (3.5-8.5) mg/dL Total Protein (6.3-8.2) g/dL Albumin (3.5-5.0) g/dL
[2023-07-20 15:00] LABS: African American GFR (CKD) >90 (>60 ml/min/1.73 sqM); Anion Gap 4 mmol/L; Blood Urea Nitrogen 12 mg/dL (9-20); Calcium 8.2 mg/dL (8.4-10.2); Carbon Dioxide 30 mmol/L (22-30); Chloride 87 mmol/L (98-107); Glucose 110 mg/dL (74-99); Non-African American GFR(CKD) >90 (>60 ml/min/1.73 sqM); Sodium 121 mmol/L (137-145)
--- NOTE | 2023-07-20 15:06 | P.NPCON ---
History of Present Illness - Reason for Consult Consult date: 07/20/23 hyponatremia - Chief Complaint Inguinal hernia repair - History of Present Illness 78-year-old white gentleman coming to the hospital with the above complaints. Post surgery labs showed sodium of 119, nephrology was consulted. He was started on IV fluids 0 point percent normal saline, sodium dropped to 117. He was transferred to ICU for 3% saline. Sodium currently around 121. He is asymptomatic, denies any active malignancy's. He takes lisinopril at home. He is not on SSRIs, antipsychotics or antidepressant as well as thiazide type of diuretics. No nausea vomiting diarrhea. He denies excessive consuming of fluids. On review of chart he has chronic hyponatremia with a baseline sodium of 129-131 although we in 2016. Review of Systems Constitutional: Reports as per HPI Past Medical History Past Medical History: Atrial Fibrillation, Atrial Flutter, COPD, GERD/Reflux, Hypertension, Osteoarthritis (OA), Pneumonia, Prostate Disorder Additional Past Medical History / Comment(s): BPH, tinnitis, Type 2 diabetes- diet controlled, DJD, oxygen at 3 liters prn., states some numbness right foot & right leg slightly weaker from hx of pinched nerves in back., urine leakage- wears depends. emmanuelle legs from knee down with rash, told was from bp being too high, when presses on lower legs leaves a dent.has compression sock coming [facility] dr aware of lower leg issues History of Any Multi-Drug Resistant Organisms: None Reported Past Surgical History: Back Surgery, Joint Replacement Additional Past Surgical History / Comment(s): back surgery with spinal fusion (2010)., EGD/colonoscopy, ant TRH 04/09/22 Past Anesthesia/Blood Transfusion Reactions: No Reported Reaction Smoking Status: Former smoker - Past Family History Mother Family Medical History: Congestive Heart Failure (CHF) Additional Family Medical History / Comment(s): 4 uncles passed with [place] Sister(s) Family Medical History: Congestive Heart Failure (CHF) Additional Family Medical History / Comment(s): 1 sister from CHF Father Family Medical History: Cancer Additional Family Medical History / Comment(s): of sepsis after lung surgery for suspected cancer Medications and Allergies Home Medications Medication Instructions Recorded Confirmed Type Metoprolol Tartrate [Lopressor] 12.5 mg PO BID 01/16/17 07/19/23 History Ipratropium-Albuterol Nebulize 3 ml INHALATION Q6HR 10/16/17 07/19/23 History [Duoneb 0.5 mg-3 mg/3 ml Soln] Albuterol Inhaler [Ventolin Hfa 2 puff INHALATION Q4-6H PRN 03/22/22 07/19/23 History Inhaler] Alfuzosin HCl [Uroxatral] 10 mg PO DAILY 03/22/22 07/19/23 History Apixaban [Eliquis] 5 mg PO Q12HR 03/22/22 07/19/23 History Finasteride [Proscar] 5 mg PO DAILY 03/22/22 07/19/23 History Mometasone Furoate [Asmanex 2 puff INHALATION BID 03/22/22 07/15/23 History Inhaler] Multivit-Min/Folic/Vit K/Lycop 1 each PO DAILY 03/22/22 07/19/23 History [Men's Multivitamin Tablet] PARoxetine HCL [Paxil] 30 mg PO DAILY 03/22/22 07/19/23 History Tolterodine Tartrate [Detrol LA] 4 mg PO DAILY 03/22/22 07/19/23 History lisinopriL [Zestril] 10 mg PO DAILY 03/22/22 07/19/23 History Sennosides [Senokot] 2 tab PO DAILY PRN #60 tablet 04/09/22 07/19/23 Rx Allergies Allergy/AdvReac Type Severity Reaction Status Date / Time Sulfa (Sulfonamide Allergy BLOOD IN Verified 07/19/23 12:12 Antibiotics) URINE A CHILD Physical Exam Vitals: Vital Signs Temp Pulse Pulse Resp BP BP Pulse Ox 07/20/23 14:00 65 21 101/60 98 07/20/23 13:00 61 15 122/69 98 07/20/23 12:00 98.3 F 23 145/78 99 07/20/23 11:00 53 L 20 129/68 100 07/20/23 10:00 66 15 123/82 97 07/20/23 09:00 76 18 124/67 99 07/20/23 08:49 72 07/20/23 08:00 98.6 F 67 13 139/68 99 07/20/23 07:00 72 18 139/68 97 07/20/23 06:00 64 20 149/85 100 07/20/23 05:00 64 12 138/76 100 07/20/23 04:00 98.1 F 65 12 138/79 98 07/20/23 02:00 81 18 07/19/23 23:48 97.7 F 81 18 110/59 98 07/19/23 20:00 97.2 F L 98 18 129/75 97 07/19/23 19:11 97.7 F 96 18 136/72 94 L 07/19/23 16:25 90 16 126/75 96 07/19/23 16:15 98 16 136/62 93 L 07/19/23 15:45 86 16 142/69 94 L 07/19/23 15:30 86 16 140/70 07/19/23 15:15 88 15 149/75 100 FiO2 07/20/23 14:00 07/20/23 13:00 50 07/20/23 12:00 50 07/20/23 11:00 07/20/23 10:00 07/20/23 09:00 07/20/23 08:49 07/20/23 08:00 07/20/23 07:00 07/20/23 06:00 07/20/23 05:00 07/20/23 04:00 07/20/23 02:00 07/19/23 23:48 07/19/23 20:00 07/19/23 19:11 07/19/23 16:25 07/19/23 16:15 07/19/23 15:45 07/19/23 15:30 07/19/23 15:15 Intake and Output 07/20/23 07/20/23 07/20/23 06:59 14:59 22:59 Intake Total 325 225 Output Total 1650 479 Balance -9241 -799 Intake: IV 75 225 Sodium Chloride 0.9% 1, 50 000 ml @ 50 mls/hr IV . Q20H [facility] Rx#:[id number] Sodium Chloride 3%( 75 175 Hypertonic) 500 ml @ 25 mls/hr IV .Q20H [facility] Rx#: [id number] Intake, IV Titration 250 Amount Sodium Chloride 0.9% 1, 250 000 ml @ 50 mls/hr IV . 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 #2 SIADH cause unclear. #3 inguinal hernia repair #4 hypertension, currently low normal. Plan: #1 continue with 3% at 25 ML's an hour. #2 check serum and urine osmolality including urine electrolytes. #3 discontinue lisinopril with low normal blood pressures. Cannot's of contrast. SIADH. #4 sodium every 4 labs #5 Samsca 15 mg once today. #6 goal serum sodium off 125 by tonight. #7 stop 3% and sodium reaches 125
[2023-07-20] MEDS ORDERED: TOLVAPTAN 15 MG TABLET PO ONE (15:30)
[2023-07-20 15:33] LABS: Potassium 4.7 mmol/L (3.5-5.1)
[2023-07-20 15:51] LABS: Uric Acid 2.5 mg/dL (3.5-8.5)
[2023-07-20 18:37] LABS: Appearance,Urine Clear (Clear); Bilirubin,Urine Negative (Negative); Blood,Urine Negative (Negative); Calcium Oxalate Crystals,Urine Moderate /hpf; Color,Urine Yellow; Glucose,Urine (UA) Negative (Negative); Ketones,Urine Trace (Negative); Leukocyte Esterase,Urine Moderate (Negative); Mucus,Urine Occasional /hpf; Nitrite,Urine Negative (Negative); Protein,Urine Trace (Negative); RBC,Urine 20 /hpf (0-5); Specific Gravity,Urine 1.022 (1.001-1.035); Urobilinogen,Urine <2.0 mg/dL (<2.0); WBC,Urine 6 /hpf (0-5)
[2023-07-20 18:53] LABS: Creatinine,Urine Random 156.7 mg/dL
[2023-07-20 20:02] LABS: Glucose,Whole Blood 129 mg/dL (70-110)
[2023-07-21] MEDS: IPRATROPIUM-ALBUTEROL 3 ML NEB INHALATION SCH ×4 (04:06→20:09)
[2023-07-21 04:08] VITALS: TEMP 98.1
[2023-07-21 05:28] LABS: African American GFR (CKD) >90 (>60 ml/min/1.73 sqM); Anion Gap 3 mmol/L; Blood Urea Nitrogen 8 mg/dL (9-20); Calcium 8.2 mg/dL (8.4-10.2); Carbon Dioxide 33 mmol/L (22-30); Chloride 92 mmol/L (98-107); Glucose 101 mg/dL (74-99); Non-African American GFR(CKD) >90 (>60 ml/min/1.73 sqM); Potassium 3.9 mmol/L (3.5-5.1); Sodium 128 mmol/L (137-145)
[2023-07-21 06:42] LABS: Glucose,Whole Blood 122 mg/dL (70-110)
[2023-07-21] MEDS: FLUTICASONE 220 MCG INHALER INHALATION SCH ×2 (07:54→20:09)
[2023-07-21] MEDS: FINASTERIDE 5 MG TAB PO SCH (08:06)
[2023-07-21] MEDS: OXYBUTYNIN 10 MG TAB.ER.24 PO SCH (08:06)
[2023-07-21] MEDS: PARoxetine 10 MG TAB PO SCH (08:06)
[2023-07-21] MEDS: ENOXAPARIN 30 MG/0.3 ML SYRINGE SQ SCH (08:06)
[2023-07-21] MEDS: METOPROLOL TARTRATE 12.5 MG TAB PO SCH (08:06)
[2023-07-21] MEDS: TAMSULOSIN 0.4 MG CAP.ER.24H PO SCH (08:06)
[2023-07-21 09:03] VITALS: BP 129/64
--- NOTE | 2023-07-21 09:17 | P.DS ---
Providers Date of admission: 07/20/23 03:40 Expected date of discharge: 07/21/23 Attending physician: Val Brand Consults: 07/19/23 05:25 Consult Physician Routine Consulting Provider: [facility] Consult Reason/Comments: Regional block Do you want consulting provider notified?: Yes 07/19/23 15:13 Consult Physician Routine Consulting Provider: Damaris Nobles Consult Reason/Comments: Hyponatremia, medical management Do you want consulting provider notified?: Yes 07/19/23 18:15 Consult Physician Routine Consulting Provider: Dru Mckeon Consult Reason/Comments: hyponatremia Do you want consulting provider notified?: Already Contacted 07/20/23 03:00 Consult Physician Routine Consulting Provider: Tracy Borrego Consult Reason/Comments: ICU management Do you want consulting provider notified?: Yes, Notify in am Primary care physician: Harika Cheney - Discharge Diagnosis(es) (1) Left inguinal hernia Patient admitted after left inguinal hernia. Patient found have low sodium. Patient was in the ICU for hypertonic saline. Nephrology and pulmonary both consulted. Doing well today. No pain. Tolerating diet. Would like to go home. Will plan discharge today if cleared by consultants. Current Visit: No Status: Acute Plan - Discharge Summary Discharge Rx Participant: No New Discharge Prescriptions: No Action Metoprolol Tartrate [Lopressor] 12.5 mg PO BID Ipratropium-Albuterol Nebulize [Duoneb 0.5 mg-3 mg/3 ml Soln] 3 ml INHALATION Q6HR Albuterol Inhaler [Ventolin Hfa Inhaler] 2 puff INHALATION Q4-6H PRN PRN Reason: Shortness Of Breath lisinopriL [Zestril] 10 mg PO DAILY Mometasone Furoate [Asmanex Inhaler] 2 puff INHALATION BID Tolterodine Tartrate [Detrol LA] 4 mg PO DAILY PARoxetine HCL [Paxil] 30 mg PO DAILY Finasteride [Proscar] 5 mg PO DAILY Apixaban [Eliquis] 5 mg PO Q12HR Alfuzosin HCl [Uroxatral] 10 mg PO DAILY Multivit-Min/Folic/Vit K/Lycop [Men's Multivitamin Tablet] 1 each PO DAILY Sennosides [Senokot] 2 tab PO DAILY PRN #60 tablet PRN Reason: Constipation Discharge Medication List Metoprolol Tartrate [Lopressor] 12.5 mg PO BID 01/16/17 [History] Ipratropium-Albuterol Nebulize [Duoneb 0.5 mg-3 mg/3 ml Soln] 3 ml INHALATION Q6HR 10/16/17 [History] Albuterol Inhaler [Ventolin Hfa Inhaler] 2 puff INHALATION Q4-6H PRN 03/22/22 [History] Alfuzosin HCl [Uroxatral] 10 mg PO DAILY 03/22/22 [History] Apixaban [Eliquis] 5 mg PO Q12HR 03/22/22 [History] Finasteride [Proscar] 5 mg PO DAILY 03/22/22 [History] Mometasone Furoate [Asmanex Inhaler] 2 puff INHALATION BID 03/22/22 [History] Multivit-Min/Folic/Vit K/Lycop [Men's Multivitamin Tablet] 1 each PO DAILY 03/22/22 [History] PARoxetine HCL [Paxil] 30 mg PO DAILY 03/22/22 [History] Tolterodine Tartrate [Detrol LA] 4 mg PO DAILY 03/22/22 [History] lisinopriL [Zestril] 10 mg PO DAILY 03/22/22 [History] Sennosides [Senokot] 2 tab PO DAILY PRN #60 tablet 04/09/22 [Rx]
[2023-07-21] MEDS ORDERED: CALCIUM CARBONATE 500 MG CHEWABLE PO PRN (09:19)
--- NOTE | 2023-07-21 09:23 | P.PN ---
Subjective Progress Note Date: 07/21/23 This is a 78-year-old male patient was currently in the intensive care unit for hyponatremia and the patient is on a 3% hypertonic saline solution. Mental status is adequate and the patient is not having any seizure activity or altered mentation. He is known to have COPD/obstructive sleep apnea, in addition to history of atrial fibrillation and his current cardiac rhythm is sinus, hypertension, BPH, and the patient has degenerative spine disease and the patient has undergone previous spinal fusion. The patient was admitted for elective robotic-assisted reduction and repair of a incarcerated hernia with mesh and laparoscopic appendectomy. Surgical surgery was done on 07/19/2023. Following his surgery, the patient's sodium was noted to be low. In fact his initial sodium was 121 and dropped to 117 and following hypertonic saline solution, his sodium is gradually improved and is currently up to 20. His chloride is 85 with a BUN of 12 and a creatinine of 0.5. The potassium level is at 4.4. No history of malignancy. His chest x-ray from 04/18/2023 showed no acute abnormalities. 07/21 2023, the patient is eager to go home. He is awake and alert and communicating. No altered mentation. Hypertonic saline was discontinued and the patient's sodium level is currently up to 129. We restricted his fluid intake and the patient is producing adequate amount of urine output. No abdomin al pain. The surgical wound sites are all clean. No nausea. No emesis. He is ambulating. Is on 3 L of oxygen by nasal cannula. His bicarb is at 33, BUN is at 80 with a creatinine of 0.4. Calcium level is at 8.2. Most recent hemoglobin from yesterday was 11.5. Otherwise, no other significant events. Anticoagulation can be restarted. Objective - Vital Signs Vital signs: Vital Signs Temp 98.1 F 07/21/23 08:00 Pulse 69 07/21/23 09:00 Resp 17 07/21/23 09:00 BP 129/64 07/21/23 09:00 Pulse Ox 96 07/21/23 09:00 FiO2 50 07/20/23 13:00 Intake & Output 07/20/23 07/21/23 07/21/23 18:59 06:59 18:59 Intake Total 1405 150 Output Total 1077 8765 170 Balance 328 -1830 -170 Weight 64.6 kg 67.8 kg Intake: IV 405 150 Sodium Chloride 0.9% 1, 80 50 000 ml @ 50 mls/hr IV . Q20H [facility] Rx#:[id number] Sodium Chloride 3%( 325 100 Hypertonic) 500 ml @ 25 mls/hr IV .Q20H [facility] Rx#: [id number] Other 1000 Output: Urine 1077 1980 170 Other: Voiding Method Indwelling Catheter Indwelling Catheter Indwelling Catheter - Exam General: Nontoxic, no distress and appears stated age. Derm: Skin warm and dry, normal coloration for ethnicity. Head: Atraumatic, normocephalic and symmetric. Eyes: EOMs intact, no lid lag, and anicteric sclera Mouth: no lip lesions, mucus membranes moist Cardiovascular: regular rate and rhythm with normal S1S2, no murmur, positive posterior tibial pulses bilaterally, and cap refill < 2 seconds. Lungs: Respirations even, regular, and unlabored. Lungs CTA bilaterally, no rhonchi, no rales, no wheezing, and no accessory muscle usage. Abdominal: soft, nontender to palpation, no guarding, no appreciable organomegaly Ext: ROM intact. No gross muscle atrophy, 1+ pitting bilateral lower extremity edema, no contractures Neuro: Speech clear, face symmetrical and CN II-XII grossly intact with no noted focal neuro deficits Psych: Alert and oriented to person, place, time, and situation. Appropriate and pleasant affect. - Labs CBC & Chem 7: 07/20/23 03:47 07/21/23 07:06 Labs: Abnormal Lab Results - Last 24 Hours (Table) 07/20/23 07/20/23 07/20/23 Range/Units 10:58 11:31 14:26 Sodium 121 L 121 L (137-145) mmol/L Chloride 87 L (98-107) mmol/L Carbon Dioxide (22-30) mmol/L BUN (9-20) mg/dL Creatinine 0.56 L (0.66-1.25) mg/dL Glucose 110 H (74-99) mg/dL POC Glucose (mg/dL) 130 H (70-110) mg/dL Osmolality (280-301) mosm/kg Uric Acid (3.5-8.5) mg/dL Calcium 8.2 L (8.4-10.2) mg/dL Urine Protein (Negative) Urine Ketones (Negative) Ur Leukocyte Esterase (Negative) Urine RBC (0-5) /hpf Urine WBC (0-5) /hpf Calcium Oxalate Crystal (None) /hpf Urine Mucus (None) /hpf 07/20/23 07/20/23 07/20/23 Range/Units 14:30 15:32 19:17 Sodium 122 L (137-145) mmol/L Chloride (98-107) mmol/L Carbon Dioxide (22-30) mmol/L BUN (9-20) mg/dL Creatinine (0.66-1.25) mg/dL Glucose (74-99) mg/dL POC Glucose (mg/dL) (70-110) mg/dL Osmolality 258 L (280-301) mosm/kg Uric Acid 2.5 L (3.5-8.5) mg/dL Calcium (8.4-10.2) mg/dL Urine Protein Trace H (Negative) Urine Ketones Trace H (Negative) Ur Leukocyte Esterase Moderate H (Negative) Urine RBC 20 H (0-5) /hpf Urine WBC 6 H (0-5) /hpf Calcium Oxalate Crystal Moderate H (None) /hpf Urine Mucus Occasional H (None) /hpf 07/20/23 07/20/23 07/21/23 Range/Units 19:59 22:46 03:34 Sodium 126 L 128 L (137-145) mmol/L Chloride (98-107) mmol/L Carbon Dioxide (22-30) mmol/L BUN (9-20) mg/dL Creatinine (0.66-1.25) mg/dL Glucose (74-99) mg/dL POC Glucose (mg/dL) 129 H (70-110) mg/dL Osmolality (280-301) mosm/kg Uric Acid (3.5-8.5) mg/dL Calcium (8.4-10.2) mg/dL Urine Protein (Negative) Urine Ketones (Negative) Ur Leukocyte Esterase (Negative) Urine RBC (0-5) /hpf Urine WBC (0-5) /hpf Calcium Oxalate Crystal (None) /hpf Urine Mucus (None) /hpf 07/21/23 07/21/23 07/21/23 Range/Units 03:34 06:40 07:06 Sodium 128 L 129 L (137-145) mmol/L Chloride 92 L (98-107) mmol/L Carbon Dioxide 33 H (22-30) mmol/L BUN 8 L (9-20) mg/dL Creatinine 0.48 L (0.66-1.25) mg/dL Glucose 101 H (74-99) mg/dL POC Glucose (mg/dL) 122 H (70-110) mg/dL Osmolality (280-301) mosm/kg Uric Acid (3.5-8.5) mg/dL Calcium 8.2 L (8.4-10.2) mg/dL Urine Protein (Negative) Urine Ketones (Negative) Ur Leukocyte Esterase (Negative) Urine RBC (0-5) /hpf Urine WBC (0-5) /hpf Calcium Oxalate Crystal (None) /hpf Urine Mucus (None) /hpf Assessment and Plan Plan: Hyponatremia, sodium level as well as 117, and the patient had hyponatremia even preoperatively. His urine osmolality and sodium is not typical of SIADH. The patient is euvolemic at this point in time. He is currently on hypertonic saline at 3%.. No altered mentation. No lip neurologic manifestation. The patient himself drinks excessive amount of water and he also drinks beer on a daily basis which could've contributed to his ongoing hyponatremia. Sodium level is currently up to 129 and the patient is currently off hypertonic saline. He was also given a dose of Semsca by nephrology yesterday. Laparoscopic right inguinal hernia repair with insertion of a mesh in addition appendectomy and this was done robotic-assisted COPD currently inactive and stable, currently on 2 L of O2 nasal cannula History of a atrial fibrillation current rhythm is sinus Hypertension Osteoarthritis BPH Diabetes mellitus type 2 Degenerative spine disease and the patient has undergone previous spine surgery/effusion. Plan Continue fluid restriction No mental status changes this point in time Sodium levels improved Lovenox 30 mg subcu portably prophylaxis, consider starting at the coagulation with Eliquis once cleared by general surgery. Dilaudid for pain control Rest of the medications are continued Provide the patient incentive spirometer Sliding-scale insulin coverage Restart anticoagulation with Eliquis We'll continue to follow, discharged home today, he has home O2
--- NOTE | 2023-07-21 11:09 | P.PN ---
Subjective Progress Note Date: 07/21/23 Subjective: Patient seen and examined at bedside. No acute events overnight. Pertinent positives and negatives as discussed above, a complete review of systems was performed and all other systems are negative. Vitals Signs Reviewed. General: nontoxic, no distress, appears at stated age Derm: warm, dry, abdominal binder Head: atraumatic, normocephalic, symmetric Eyes: EOMI, no lid lag, anicteric sclera Mouth: no lip lesion, mucus membranes moist Cardiovascular: S1S2 reg, no murmur Lungs: CTA bilateral, no rhonchi, no rales , no accessory muscle use Abdominal: soft, nontender to palpation, no guarding, no appreciable organomegaly Ext: no gross muscle atrophy, no edema, no contractures Neuro: CN II-XI grossly intact, no focal neuro deficits Psych: Alert, oriented, appropriate affect Data Reviewed Today: Pertinent Labs: Sodium 129, creatinine 0.48, blood glucose ranged between 101- 129 Imaging: No new imaging Assessment and Plan: Acute on chronic Hypochloremic hyponatremia, 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 Thank you for allowing us to participate in the care of this pleasant patient. Do not hesitate to contact us with questions. Someone can be reached from the [facility] hospitalist group all hours of the day at [phone] or via perfect serve. Objective - Vital Signs Vital signs: Vital Signs Temp 98.1 F 07/21/23 08:00 Pulse 69 07/21/23 09:00 Resp 17 07/21/23 09:00 BP 129/64 07/21/23 09:00 Pulse Ox 96 07/21/23 09:00 FiO2 50 07/20/23 13:00 Intake & Output 07/20/23 07/21/23 07/21/23 18:59 06:59 18:59 Intake Total 1405 150 Output Total 1074 6322 170 Balance 328 -8890 -170 Weight 64.6 kg 67.8 kg Intake: IV 405 150 Sodium Chloride 0.9% 1, 80 50 000 ml @ 50 mls/hr IV . Q20H [facility] Rx#:[id number] Sodium Chloride 3%( 325 100 Hypertonic) 500 ml @ 25 mls/hr IV .Q20H [facility] Rx#: [id number] Other 1000 Output: Urine 1077 1980 170 Other: Voiding Method Indwelling Catheter Indwelling Catheter Indwelling Catheter - Labs CBC & Chem 7: 07/20/23 03:47 07/21/23 07:06 Labs: Abnormal Lab Results - Last 24 Hours (Table) 07/20/23 07/20/23 07/20/23 Range/Units 10:58 11:31 14:26 Sodium 121 L 121 L (137-145) mmol/L Chloride 87 L (98-107) mmol/L Carbon Dioxide (22-30) mmol/L BUN (9-20) mg/dL Creatinine 0.56 L (0.66-1.25) mg/dL Glucose 110 H (74-99) mg/dL POC Glucose (mg/dL) 130 H (70-110) mg/dL Osmolality (280-301) mosm/kg Uric Acid (3.5-8.5) mg/dL Calcium 8.2 L (8.4-10.2) mg/dL Urine Protein (Negative) Urine Ketones (Negative) Ur Leukocyte Esterase (Negative) Urine RBC (0-5) /hpf Urine WBC (0-5) /hpf Calcium Oxalate Crystal (None) /hpf Urine Mucus (None) /hpf 07/20/23 07/20/23 07/20/23 Range/Units 14:30 15:32 19:17 Sodium 122 L (137-145) mmol/L Chloride (98-107) mmol/L Carbon Dioxide (22-30) mmol/L BUN (9-20) mg/dL Creatinine (0.66-1.25) mg/dL Glucose (74-99) mg/dL POC Glucose (mg/dL) (70-110) mg/dL Osmolality 258 L (280-301) mosm/kg Uric Acid 2.5 L (3.5-8.5) mg/dL Calcium (8.4-10.2) mg/dL Urine Protein Trace H (Negative) Urine Ketones Trace H (Negative) Ur Leukocyte Esterase Moderate H (Negative) Urine RBC 20 H (0-5) /hpf Urine WBC 6 H (0-5) /hpf Calcium Oxalate Crystal Moderate H (None) /hpf Urine Mucus Occasional H (None) /hpf 07/20/23 07/20/23 07/21/23 Range/Units 19:59 22:46 03:34 Sodium 126 L 128 L (137-145) mmol/L Chloride (98-107) mmol/L Carbon Dioxide (22-30) mmol/L BUN (9-20) mg/dL Creatinine (0.66-1.25) mg/dL Glucose (74-99) mg/dL POC Glucose (mg/dL) 129 H (70-110) mg/dL Osmolality (280-301) mosm/kg Uric Acid (3.5-8.5) mg/dL Calcium (8.4-10.2) mg/dL Urine Protein (Negative) Urine Ketones (Negative) Ur Leukocyte Esterase (Negative) Urine RBC (0-5) /hpf Urine WBC (0-5) /hpf Calcium Oxalate Crystal (None) /hpf Urine Mucus (None) /hpf 07/21/23 07/21/23 07/21/23 Range/Units 03:34 06:40 07:06 Sodium 128 L 129 L (137-145) mmol/L Chloride 92 L (98-107) mmol/L Carbon Dioxide 33 H (22-30) mmol/L BUN 8 L (9-20) mg/dL Creatinine 0.48 L (0.66-1.25) mg/dL Glucose 101 H (74-99) mg/dL POC Glucose (mg/dL) 122 H (70-110) mg/dL Osmolality (280-301) mosm/kg Uric Acid (3.5-8.5) mg/dL Calcium 8.2 L (8.4-10.2) mg/dL Urine Protein (Negative) Urine Ketones (Negative) Ur Leukocyte Esterase (Negative) Urine RBC (0-5) /hpf Urine WBC (0-5) /hpf Calcium Oxalate Crystal (None) /hpf Urine Mucus (None) /hpf
--- NOTE | 2023-07-21 12:25 | P.PN ---
Subjective Progress Note Date: 07/21/23 Follow-up for hyponatremia. Sodium improving. Feels better. No nausea vomiting diarrhea. Objective - Vital Signs Vital signs: Vital Signs Temp 98.1 F 07/21/23 08:00 Pulse 69 07/21/23 09:00 Resp 17 07/21/23 09:00 BP 129/64 07/21/23 09:00 Pulse Ox 96 07/21/23 09:00 FiO2 50 07/20/23 13:00 Intake & Output 07/20/23 07/21/23 07/21/23 18:59 06:59 18:59 Intake Total 1405 150 Output Total 1077 1979 170 Balance 328 -1830 -170 Weight 64.6 kg 67.8 kg Intake: IV 405 150 Sodium Chloride 0.9% 1, 80 50 000 ml @ 50 mls/hr IV . Q20H [facility] Rx#:[id number] Sodium Chloride 3%( 325 100 Hypertonic) 500 ml @ 25 mls/hr IV .Q20H [facility] Rx#: [id number] Other 1000 Output: Urine [id number] Other: Voiding Method Indwelling Catheter Indwelling Catheter Indwelling Catheter - Exam No acute distress S1-S2 heard Decreased breath sounds Abdomen soft No edema - Labs CBC & Chem 7: 07/20/23 03:47 07/21/23 07:06 Labs: Abnormal Lab Results - Last 24 Hours (Table) 07/20/23 07/20/23 07/20/23 Range/Units 14:26 14:30 15:32 Sodium 121 L (137-145) mmol/L Chloride 87 L (98-107) mmol/L Carbon Dioxide (22-30) mmol/L BUN (9-20) mg/dL Creatinine 0.56 L (0.66-1.25) mg/dL Glucose 110 H (74-99) mg/dL POC Glucose (mg/dL) (70-110) mg/dL Osmolality 258 L (280-301) mosm/kg Uric Acid 2.5 L (3.5-8.5) mg/dL Calcium 8.2 L (8.4-10.2) mg/dL Urine Protein Trace H (Negative) Urine Ketones Trace H (Negative) Ur Leukocyte Esterase Moderate H (Negative) Urine RBC 20 H (0-5) /hpf Urine WBC 6 H (0-5) /hpf Calcium Oxalate Crystal Moderate H (None) /hpf Urine Mucus Occasional H (None) /hpf 07/20/23 07/20/23 07/20/23 Range/Units 19:17 19:59 22:46 Sodium 122 L 126 L (137-145) mmol/L Chloride (98-107) mmol/L Carbon Dioxide (22-30) mmol/L BUN (9-20) mg/dL Creatinine (0.66-1.25) mg/dL Glucose (74-99) mg/dL POC Glucose (mg/dL) 129 H (70-110) mg/dL Osmolality (280-301) mosm/kg Uric Acid (3.5-8.5) mg/dL Calcium (8.4-10.2) mg/dL Urine Protein (Negative) Urine Ketones (Negative) Ur Leukocyte Esterase (Negative) Urine RBC (0-5) /hpf Urine WBC (0-5) /hpf Calcium Oxalate Crystal (None) /hpf Urine Mucus (None) /hpf 07/21/23 07/21/23 07/21/23 Range/Units 03:34 03:34 06:40 Sodium 128 L 128 L (137-145) mmol/L Chloride 92 L (98-107) mmol/L Carbon Dioxide 33 H (22-30) mmol/L BUN 8 L (9-20) mg/dL Creatinine 0.48 L (0.66-1.25) mg/dL Glucose 101 H (74-99) mg/dL POC Glucose (mg/dL) 122 H (70-110) mg/dL Osmolality (280-301) mosm/kg Uric Acid (3.5-8.5) mg/dL Calcium 8.2 L (8.4-10.2) mg/dL Urine Protein (Negative) Urine Ketones (Negative) Ur Leukocyte Esterase (Negative) Urine RBC (0-5) /hpf Urine WBC (0-5) /hpf Calcium Oxalate Crystal (None) /hpf Urine Mucus (None) /hpf 07/21/23 Range/Units 07:06 Sodium 129 L (137-145) mmol/L Chloride (98-107) mmol/L Carbon Dioxide (22-30) mmol/L BUN (9-20) mg/dL Creatinine (0.66-1.25) mg/dL Glucose (74-99) mg/dL POC Glucose (mg/dL) (70-110) mg/dL Osmolality (280-301) mosm/kg Uric Acid (3.5-8.5) mg/dL Calcium (8.4-10.2) mg/dL Urine Protein (Negative) Urine Ketones (Negative) Ur Leukocyte Esterase (Negative) Urine RBC (0-5) /hpf Urine WBC (0-5) /hpf Calcium Oxalate Crystal (None) /hpf Urine Mucus (None) /hpf Assessment and Plan Assessment: #1 acute on chronic hypotonic 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 #2 SIADH cause unclear. #3 inguinal hernia repair #4 hypertension, currently low normal. Plan: #1 agree with stopping 3% normal saline. #2 status post Samsca 15 mg once today. Add salt tablets 1 g twice a day #3 discontinue lisinopril with low normal blood pressures. Can also contribution to SIADH. #4 stable from nephrology for discharge to be followed up in the office in 2 weeks
[2023-07-21 13:35] VITALS: RESP 16
[2023-07-21 13:44] VITALS: PULSE 70
[2023-07-21] MEDS ORDERED: SODIUM CHLORIDE TAB 1 GM TAB PO SCH (21:00)
[2023-07-21] MEDS ORDERED: APIXABAN 5 MG TAB PO SCH (21:00)
== END 2023-07-21 14:35 | disposition home or self-care (01) | DRG 982 ==
LOC: OR 11:19 → 3SCARD 15:46 → 2SICU 07-20 03:22 → OR 07-20 03:38 → 2SICU 07-20 03:40 → OBSVTOIN 07-20 03:40 → INTOOBSV 07-20 03:40 → UNDODISIN 07-21 14:35
PROVIDERS: ADMIT Surgery Plastic and Reconstructive Surgery; ATTEND Surgery Plastic and Reconstructive Surgery
PROC: 0YU64JZ Supplement Left Inguinal Region with Synthetic Substitute, Percutaneous Endoscopic Approach (ICD-10-PCS; principal; 2023-07-19 11:10)
PROC: 8E0W4CZ Robotic Assisted Procedure of Trunk Region, Percutaneous Endoscopic Approach (ICD-10-PCS; principal; 2023-07-19 11:10)
PROC: 0DTJ4ZZ Resection of Appendix, Percutaneous Endoscopic Approach (ICD-10-PCS; principal; 2023-07-19 11:10)
DX: E22.2 Syndrome of inappropriate secretion of antidiuretic hormone (principal); K40.31 Unilateral inguinal hernia, with obstruction, without gangrene, recurrent; J44.9 Chronic obstructive pulmonary disease, unspecified; G47.33 Obstructive sleep apnea (adult) (pediatric); I10 Essential (primary) hypertension; N40.1 Benign prostatic hyperplasia with lower urinary tract symptoms; N39.498 Other specified urinary incontinence; G89.29 Other chronic pain; K66.0 Peritoneal adhesions (postprocedural) (postinfection); K36 Other appendicitis; I48.0 Paroxysmal atrial fibrillation; E87.8 Other disorders of electrolyte and fluid balance, not elsewhere classified; M51.36 Other intervertebral disc degeneration, lumbar region; K38.1 Appendicular concretions; E11.9 Type 2 diabetes mellitus without complications; K21.9 Gastro-esophageal reflux disease without esophagitis; M19.90 Unspecified osteoarthritis, unspecified site; Z96.641 Presence of right artificial hip joint; Z88.2 Allergy status to sulfonamides; Z79.01 Long term (current) use of anticoagulants; Z99.81 Dependence on supplemental oxygen; Z98.1 Arthrodesis status; Z87.891 Personal history of nicotine dependence; Z79.899 Other long term (current) drug therapy; Z87.01 Personal history of pneumonia (recurrent)
CPT/HCPCS: 71045; 80048; 80053; 81001; 82570; 83930; 83935; 84100; 84133; 84295; 84300; 84443; 84550; 85025; 85027; 94640

== ENCOUNTER 2023-08-10 10:45 | Emergency (ER) | payer OTHER ==
[2023-08-10 11:04] VITALS: RESP 18; TEMP 97.6
[2023-08-10] MEDS ORDERED: MORPHINE SULFATE 4 MG/ML SYRINGE IVP STA (11:47)
[2023-08-10] MEDS ORDERED: BACITRACIN OINT 1 EACH PACKET TOPICAL ONE (11:47)
--- NOTE | 2023-08-10 11:55 | ED ---
Fall HPI - General Chief Complaint: Fall Stated Complaint: Fall Time Seen by Provider: 08/10/23 11:36 Source: patient, EMS Mode of arrival: EMS - History of Present Illness Initial Comments: 78-year-old male presents alert and oriented to the emergency room with complaints of falling off of a stool and hitting his head today. He is not sure if he blacked out before hitting the ground or after hitting the ground. He did hit his head on the garage floor concrete. He does have a history of anxiety and was having anxiety at that time. He does take Eliquis daily. Abrasion and hematoma to the left forehead, pain to the left shoulder, skin tears to the left elbow. Patient complaining of a headache and left shoulder pain. Denies any neck pain or other injuries. Patient does have history of COPD, he is currently smoking 2-3 cigarettes a day, is on oxygen 3 L nasal cannula at home. States he does turn the oxygen off and goes outside to smoke. MD Complaint: fall -: hour(s) Fall From: chair When Fall Occurred: 1-[address] Fall Occurred: home (garage) Loss of Consciousness: unsure Prolonged Down Time?: no Symptoms Prior to Fall: other (anxiety) Location: head Location - Extremities: Left: Shoulder, Elbow Severity scale (1-10): 5 Quality: aching - Related Data Home Medications Medication Instructions Recorded Confirmed Metoprolol Tartrate [Lopressor] 12.5 mg PO BID 01/16/17 07/19/23 Ipratropium-Albuterol Nebulize 3 ml INHALATION Q6HR 10/16/17 07/19/23 [Duoneb 0.5 mg-3 mg/3 ml Soln] Albuterol Inhaler [Ventolin Hfa 2 puff INHALATION Q4-6H PRN 03/22/22 07/19/23 Inhaler] Alfuzosin HCl [Uroxatral] 10 mg PO DAILY 03/22/22 07/19/23 Apixaban [Eliquis] 5 mg PO Q12HR 03/22/22 07/19/23 Finasteride [Proscar] 5 mg PO DAILY 03/22/22 07/19/23 Mometasone Furoate [Asmanex 2 puff INHALATION BID 03/22/22 07/15/23 Inhaler] Multivit-Min/Folic/Vit K/Lycop 1 each PO DAILY 03/22/22 07/19/23 [Men's Multivitamin Tablet] PARoxetine HCL [Paxil] 30 mg PO DAILY 03/22/22 07/19/23 Tolterodine Tartrate [Detrol LA] 4 mg PO DAILY 03/22/22 07/19/23 Previous Rx's Medication Instructions Recorded Sennosides [Senokot] 2 tab PO DAILY PRN #60 tablet 04/09/22 Sodium Chloride Tab 1 gm PO DAILY #60 tablet 07/21/23 Allergies Allergy/AdvReac Type Severity Reaction Status Date / Time Sulfa (Sulfonamide Allergy BLOOD IN Verified 08/10/23 11:03 Antibiotics) URINE A CHILD Review of Systems ROS Statement: Those systems with pertinent positive or pertinent negative responses have been documented in the HPI. ROS Other: All systems not noted in ROS Statement are negative. Past Medical History Past Medical History: Atrial Fibrillation, Atrial Flutter, COPD, GERD/Reflux, Hypertension, Osteoarthritis (OA), Pneumonia, Prostate Disorder Additional Past Medical History / Comment(s): BPH, tinnitis, Type 2 diabetes- diet controlled, DJD, oxygen at 3 liters prn., states some numbness right foot & right leg slightly weaker from hx of pinched nerves in back., urine leakage- wears depends. emmanuelle legs from knee down with rash, told was from bp being too high, when presses on lower legs leaves a dent.has compression sock coming [facility] dr aware of lower leg issues History of Any Multi-Drug Resistant Organisms: None Reported Past Surgical History: Back Surgery, Joint Replacement Additional Past Surgical History / Comment(s): back surgery with spinal fusion (2010)., EGD/colonoscopy, ant TRH 04/09/22 Past Anesthesia/Blood Transfusion Reactions: No Reported Reaction Past Psychological History: Anxiety, Bipolar Smoking Status: Former smoker Past Alcohol Use History: Occasional Past Drug Use History: None Reported - Past Family History Mother Family Medical History: Congestive Heart Failure (CHF) Additional Family Medical History / Comment(s): 4 uncles passed with DE Sister(s) Family Medical History: Congestive Heart Failure (CHF) Additional Family Medical History / Comment(s): 1 sister from CHF Father Family Medical History: Cancer Additional Family Medical History / Comment(s): of sepsis after lung surgery for suspected cancer General Exam Limitations: no limitations General appearance: alert, in no apparent distress Head exam: Present: other (hematoma with abrasion to left side forehead) Expanded Head exam: Present: abrasion, hematoma. Absent: raccoon eyes, zhang's sign, CSF rhinorrhea, CSF otorrhea Eye exam: Present: normal appearance, EOMI. Absent: scleral icterus, conjunctival injection, periorbital swelling, periorbital tenderness ENT exam: Present: normal oropharynx, mucous membranes moist, other (dentures) Neck exam: Present: normal inspection, full ROM. Absent: tenderness, meningismus Respiratory exam: Present: rhonchi. Absent: respiratory distress, chest wall tenderness, accessory muscle use Cardiovascular Exam: Present: regular rate, normal rhythm GI/Abdominal exam: Present: soft, other (Laparoscopic surigical incisions dry and intact, no erythema or drainage, s/p appy and hernia repair). Absent: distended, tenderness Extremities exam: Present: normal capillary refill Left Shoulder Exam: Present: tenderness, abrasion, tenderness over AC joint. Absent: swelling, laceration, ecchymosis, deformity, crepitus, dislocation, erythema Upper Arm exam: Absent: tenderness, swelling Elbow exam: Present: abrasion (skin tears). Absent: tenderness, swelling Forearm Wrist exam: Present: full ROM. Absent: tenderness, swelling Hand Wrist exam: Present: full ROM, abrasion (skin tear old, dried scale). Absent: tenderness, swelling, erythema Vascular: Present: normal capillary refill. Absent: vascular compromise Neurological exam: Present: alert, oriented X3, CN II-XII intact Psychiatric exam: Present: normal affect, normal mood Skin exam: Present: warm, dry, normal color. Absent: cyanosis, diaphoretic, petechiae, pallor Course Vital Signs 08/10/23 08/10/23 10:54 13:01 Temperature 97.6 F Pulse Rate 66 73 Respiratory 18 18 Rate Blood Pressure 135/68 124/71 O2 Sat by Pulse 97 98 Oximetry Medical Decision Making - Medical Decision Making Was pt. sent in by a medical professional or institution (, PA, [employer], urgent care, hospital, or shelter...) When possible be specific @ -No Did you speak to anyone other than the patient for history (EMS, parent, family, police, friend...)? What history was obtained from this source @ -No Did you review nursing and triage notes (agree or disagree)? Why? @ -I reviewed and agree with nursing and triage notes Were old charts reviewed (outside hosp., previous admission, EMS record, old EKG, old radiological studies, urgent care reports/EKG's, shelter records)? Report findings @ -Yes, previous labs and EKG Differential Diagnosis (chest pain, altered mental status, abdominal pain women, abdominal pain men, vaginal bleeding, weakness, fever, dyspnea, syncope, headache, dizziness, GI bleed, back pain, seizure, CVA, palpatations, mental health, musculoskeletal)? @ -Differential Syncope: Valvular disease, hypertrophic cardiomyopathy, pulmonary embolism, tamponade, tachycardia, bradycardia, DE, hypovolemia, hemorrhage, dissection, anemia, intracranial hemorrhage, seizure, hypoglycemia, carbon monoxide poisoning, this is not meant to be an all-inclusive list. Differential Headache: Migraine, tension, cluster, carbon monoxide, central venous thrombosis, pension karma temporal arteritis, acute closure glaucoma, intercranial hemorrhage, mastoiditis, sinusitis, head injury, this is not meant to be an all-inclusive list. EKG interpreted by me (3pts min.). @ -yes EKG interpreted me shows sinus rhythm with occasional PVCs. Ventricular rate 67, SC interval 0.161, QRS 0.94, QTC 0.431. No concerning changes compared to old dated 07/19/2023. X-rays interpreted by me (1pt min.). @ -yes, Chest x-ray interpreted by me shows no evidence of focal consolidation. X-ray of the left shoulder interpreted by me shows no evidence of rupture or dislocation, chronic degenerative changes. CT interpreted by me (1pt min.). @ -Yes CT of the brain and C-spine shows no evidence of intracranial mass or bleed or midline shift. C-spine shows no evidence of fracture or dislocation. U/S interpreted by me (1pt. min.). @ -None done What testing was considered but not performed or refused? (CT, X-rays, U/S, labs)? Why? @ -None What meds were considered but not given or refused? Why? @ -None Did you discuss the management of the patient with other professionals (professionals i.e. , PA, [employer], lab, RT, psych nurse, social work specialist, ground school instructor, teacher, senior compliance officer, ed case manager)? Give summary @ -No Was smoking cessation discussed for >3mins.? @ -No Was critical care preformed (if so, how long)? @ -No Were there social determinants of health that impacted care today? How? (Homelessness, low income, unemployed, alcoholism, drug addiction, transportation, low edu. Level, literacy, decrease access to med. care, senior living, rehab)? @ -No Was there de-escalation of care discussed even if they declined (Discuss DNR or withdrawal of care, Hospice)? DNR status @ -No What co-morbidities impacted this encounter? (DM, HTN, Smoking, COPD, CAD, Cancer, CVA, ARF, Chemo, Hep., AIDS, mental health diagnosis, sleep apnea, morbid obesity)? @ -Patient has a history of atrial fibrillation, COPD, GERD, hypertension, osteoarthritis, urinary incontinence, anxiety, bipolar, daily smoker, back surgery with spinal fusion in 2010 Was patient admitted / discharged? Hospital course, mention meds given and route, prescriptions, significant lab abnormalities, going to OR and other pertinent info. @ -Discharged 78-year-old male presents alert and oriented to the emergency room with complaints of falling off of a stool and hitting his head today. He is not sure if he blacked out before hitting the ground or after hitting the ground. He did hit his head on the garage floor concrete. He does have a history of anxiety and was having anxiety at that time. He does take Eliquis daily. Abrasion and hematoma to the left forehead, pain to the left shoulder, skin te ars to the left elbow. Patient complaining of a headache and left shoulder pain. Denies any neck pain or other injuries. Patient does have history of COPD, he is currently smoking 2-3 cigarettes a day, is on oxygen 3 L nasal cannula at home. States he does turn the oxygen off and goes outside to smoke. Patient hyponatremia at 122, consistently runs low in the 120s for the past month. CBC unremarkable. EKG interpreted me shows sinus rhythm with occasional PVCs. Ventricular rate 67, SC interval 0.161, QRS 0.94, QTC 0.431. No concerning changes compared to old dated 07/19/2023. Radiologist interpretation chest xr chronic changes without acute pulmonary process no significant change to prior dated 07/19/2023. Radiologist interpretation left shoulder xr no acute fracture dislocation of the left shoulder. Osseous structures are demineralized. Visualized ribs are intact and unremarkable. High position of humeral head suggestive chronic rotator cuff tear. Radiologist's interpretation of CT brain and C-spine no acute fracture dislocation evident in the cervical spine. No acute intracranial hemorrhage or midline shift is seen. Moderate sized acute left frontal scalp hematoma noted. Bacitracin dressings were applied to abrasions. Vital signs are stable. Pain is controlled. He was referred to his primary care doctor next week. Patient agreeable to discharge. Discharged home to family. Case discussed with Dr. Weiner Undiagnosed new problem with uncertain prognosis? @ -No Drug Therapy requiring intensive monitoring for toxicity (Heparin, Nitro, Insulin, Cardizem)? @ -No Were any procedures done? @ -No Diagnosis/symptom? @ -Fall, syncope, abrasions, hematoma, left shoulder pain Acute, or Chronic, or Acute on Chronic? @ -Acute Uncomplicated (without systemic symptoms) or Complicated (systemic symptoms)? @ -Uncomplicated Side effects of treatment? @ -No Exacerbation, Progression, or Severe Exacerbation? @ -No Poses a threat to life or bodily function? How? (Chest pain, USA, DE, pneumonia, PE, COPD, DKA, ARF, appy, cholecystitis, CVA, Diverticulitis, Homicidal, Suicidal, threat to staff... and all critical care pts) @ -No - Lab Data Result diagrams: 08/10/23 11:59 08/10/23 11:59 Lab Results 08/10/23 08/10/23 08/10/23 Range/Units 11:59 11:59 11:59 WBC 9.3 (3.8-10.6) k/uL RBC 3.92 L (4.30-5.90) m/uL Hgb 12.3 L (13.0-17.5) gm/dL Hct 36.2 L (39.0-53.0) % MCV 92.3 (80.0-100.0) fL MCH 31.3 (25.0-35.0) pg MCHC 33.9 (31.0-37.0) g/dL RDW 12.7 (11.5-15.5) % Plt Count 276 (150-450) k/uL MPV 6.8 Neutrophils % 90 % Lymphocytes % 4 % Monocytes % 4 % Eosinophils % 1 % Basophils % 0 % Neutrophils # 8.4 H (1.3-7.7) k/uL Lymphocytes # 0.4 L (1.0-4.8) k/uL Monocytes # 0.4 (0-1.0) k/uL Eosinophils # 0.0 (0-0.7) k/uL Basophils # 0.0 (0-0.2) k/uL PT 10.7 (9.0-12.0) sec INR 1.0 (<1.2) APTT 22.1 (22.0-30.0) sec Sodium 122 L (137-145) mmol/L Potassium 4.0 (3.5-5.1) mmol/L Chloride 81 L (98-107) mmol/L Carbon Dioxide 39 H (22-30) mmol/L Anion Gap 2 mmol/L BUN 16 (9-20) mg/dL Creatinine 0.47 L (0.66-1.25) mg/dL Est GFR (CKD-EPI)AfAm >90 (>60 ml/min/1.73 sqM) Est GFR (CKD-EPI)NonAf >90 (>60 ml/min/1.73 sqM) Glucose 138 H (74-99) mg/dL Calcium 8.7 (8.4-10.2) mg/dL Total Bilirubin 0.5 (0.2-1.3) mg/dL AST 26 (17-59) U/L ALT 18 (4-49) U/L Alkaline Phosphatase 79 (38-126) U/L Total Protein 6.2 L (6.3-8.2) g/dL Albumin 3.4 L (3.5-5.0) g/dL Disposition Clinical Impression: Fall, Abrasion, Shoulder pain, left, Head injury due to trauma Disposition: HOME SELF-CARE Condition: Good Instructions (If sedation given, give patient instructions): Fall Prevention for Older Adults (ED), Head Injury (ED), Abrasion (ED), Skin Tear (ED), Shoulder Pain (ED) Additional Instructions: Bacitracin dressing to wounds daily. Follow-up with your primary care doctor next week. Return to the emergency room with any new or concerning symptoms. Is patient prescribed a controlled substance at d/c from ED?: No Referrals: Nonstaff,Physician [Primary Care Provider] - 1-2 days Time of Disposition: 14:33
[2023-08-10] MEDS ORDERED: DIPH,PERTUS(ACELL)TETVAC-LF 0.5 ML VIAL IM ONE (11:56)
[2023-08-10 12:10] LABS: Basophils % (A) 0 %; Eosinophils % (A) 1 %; HCT 36.2 % (39.0-53.0); HGB 12.3 gm/dL (13.0-17.5); Lymphocytes # (A) 0.4 k/uL (1.0-4.8); Lymphocytes % (A) 4 %; MCH 31.3 pg (25.0-35.0); MCHC 33.9 g/dL (31.0-37.0); MCV 92.3 fL (80.0-100.0); Mean Platelet Volume 6.8; Monocytes # (A) 0.4 k/uL (0-1.0); Monocytes % (A) 4 %; Neutrophils # (A) 8.4 k/uL (1.3-7.7); Neutrophils % (A) 90 %; Platelet Count 276 k/uL (150-450); RBC 3.92 m/uL (4.30-5.90); RDW 12.7 % (11.5-15.5); WBC 9.3 k/uL (3.8-10.6)
[2023-08-10 12:22] LABS: Partial Thromboplastin Time 22.1 sec (22.0-30.0); Prothrombin Time 10.7 sec (9.0-12.0)
[2023-08-10 12:29] LABS: ALT 18 U/L (4-49); AST 26 U/L (17-59); African American GFR (CKD) >90 (>60 ml/min/1.73 sqM); Albumin 3.4 g/dL (3.5-5.0); Alkaline Phosphatase 79 U/L (38-126); Anion Gap 2 mmol/L; Blood Urea Nitrogen 16 mg/dL (9-20); Calcium 8.7 mg/dL (8.4-10.2); Carbon Dioxide 39 mmol/L (22-30); Chloride 81 mmol/L (98-107); Glucose 138 mg/dL (74-99); Non-African American GFR(CKD) >90 (>60 ml/min/1.73 sqM); Sodium 122 mmol/L (137-145); Total Bilirubin 0.5 mg/dL (0.2-1.3); Total Protein 6.2 g/dL (6.3-8.2)
--- NOTE | 2023-08-10 12:59 | CT ---
EXAMINATION TYPE: CT brain cspine wo con DATE OF EXAM: 08/10/2023 COMPARISON: Prior trauma CT April 29, 2017 HISTORY: Fall, LOC?, On Eliquis CT DLP: 1452.7 mGycm. Automated Exposure Control for Dose Reduction was Utilized. TECHNIQUE: CT scan of the head and cervical spine are performed without contrast. FINDINGS: Moderate sized acute left frontal scalp hematoma. There is no acute intracranial hemorrhag e or midline shift identified. Mild to moderate ventricular and sulcal prominence is redemonstrated w ith sulcal prominence greatest superiorly. Mild low attenuation in the periventricular white matter i s seen. The globes are intact and the visualized sinuses are clear. Distal vascular calcification red emonstrated. Cervical spine is visualized in its entirety from C1 through upper thoracic levels and demonstrates s light grade 1 anterolisthesis C3 on C4 and C4 on C5 without evidence of acute fracture or dislocation . Prevertebral soft tissue appears within normal limits. The C1-C2 articulation is within normal li mits on the coronal images. Vertebral body heights are maintained. Moderate to severe disc space austin rowing at C5-C6 and C6-C7 levels with moderate anterior spurring is redemonstrated. Review of axial images demonstrates multilevel uncovertebral facet degenerative changes causing multi level bilateral neural foraminal narrowing. Thyroid gland is normal in size. Lung apices redemonstrat e emphysematous change without pneumothorax. IMPRESSION: 1. There is no acute fracture or dislocation evident in the cervical spine. 2. No acute intracranial hemorrhage or midline shift is seen. New moderate size acute left frontal sc alp hematoma noted.
[2023-08-10 13:04] VITALS: BP 124/71; PULSE 73
--- NOTE | 2023-08-10 14:13 | XR ---
EXAMINATION TYPE: XR chest 2V DATE OF EXAM: 08/10/2023 COMPARISON: Chest x-ray July 19, 2023 HISTORY: Fall with pain TECHNIQUE: Frontal and lateral views of the chest are obtained. FINDINGS: There is chronic parenchymal change bilaterally without suspicious focal air space opacity , pleural effusion, or pneumothorax seen. The cardiac silhouette size remains within normal limits. The osseous structures are demineralized. Surgical changes to the lumbar spine is partially imaged. Suspect old fracture of the posterolateral right fifth rib redemonstrated. IMPRESSION: Chronic changes without acute pulmonary process. No significant change from prior.
--- NOTE | 2023-08-10 14:14 | XR ---
EXAMINATION TYPE: XR shoulder complete LT DATE OF EXAM: 08/10/2023 CLINICAL HISTORY: Fall, pain TECHNIQUE: Three views of the left shoulder are obtained. COMPARISON: None. FINDINGS: Osseous structures are demineralized. There is no acute fracture/dislocation evident in th e left shoulder. Mild to moderate narrowing and spurring at the acromioclavicular joint. High positio yaneth humeral head suggests chronic rotator cuff tear. The visualized ribs are intact and unremarkable . IMPRESSION: There is no acute fracture or dislocation in the left shoulder.
== END 2023-08-10 14:58 | disposition home or self-care (01) ==
LOC: EC 10:45
DX: S00.03XA Contusion of scalp, initial encounter (principal); M25.512 Pain in left shoulder; I48.91 Unspecified atrial fibrillation; J44.9 Chronic obstructive pulmonary disease, unspecified; K21.9 Gastro-esophageal reflux disease without esophagitis; I10 Essential (primary) hypertension; M19.90 Unspecified osteoarthritis, unspecified site; F41.9 Anxiety disorder, unspecified; F31.9 Bipolar disorder, unspecified; Z87.891 Personal history of nicotine dependence; Z88.2 Allergy status to sulfonamides; Z79.01 Long term (current) use of anticoagulants; Z79.899 Other long term (current) drug therapy; Z23 Encounter for immunization; W01.198A Fall on same level from slipping, tripping and stumbling with subsequent striking against other object, initial encounter; Y92.009 Unspecified place in unspecified non-institutional (private) residence as the place of occurrence of the external cause
CPT/HCPCS: 36415; 80053; 85025; 85610; 85730; 73030; 71046; 72125; 70450; 90715; 99285; 96374; 90471; J2270

== ENCOUNTER 2023-09-19 09:56 | Emergency (ER) | payer OTHER ==
[2023-09-19 10:34] LABS: Basophils % (A) 0 %; Eosinophils % (A) 1 %; HCT 34.8 % (39.0-53.0); Lymphocytes # (A) 0.6 k/uL (1.0-4.8); Lymphocytes % (A) 12 %; MCH 31.7 pg (25.0-35.0); MCHC 34.5 g/dL (31.0-37.0); MCV 91.9 fL (80.0-100.0); Monocytes # (A) 0.3 k/uL (0-1.0); Monocytes % (A) 5 %; Neutrophils % (A) 80 %; Platelet Count 285 k/uL (150-450); RBC 3.78 m/uL (4.30-5.90); RDW 13.7 % (11.5-15.5)
[2023-09-19 10:45] LABS: ALT 17 U/L (4-49); AST 25 U/L (17-59); African American GFR (CKD) >90 (>60 ml/min/1.73 sqM); Albumin 3.6 g/dL (3.5-5.0); Alcohol <10 mg/dL; Alkaline Phosphatase 88 U/L (38-126); Anion Gap 4 mmol/L; Blood Urea Nitrogen 11 mg/dL (9-20); Calcium 8.9 mg/dL (8.4-10.2); Carbon Dioxide 40 mmol/L (22-30); Chloride 87 mmol/L (98-107); Glucose 116 mg/dL (74-99); Non-African American GFR(CKD) >90 (>60 ml/min/1.73 sqM); Sodium 131 mmol/L (137-145); Total Bilirubin 0.6 mg/dL (0.2-1.3); Total Protein 6.7 g/dL (6.3-8.2)
--- NOTE | 2023-09-19 10:45 | ED ---
SOB HPI - General Source: patient, EMS, RN notes reviewed Mode of arrival: EMS Limitations: no limitations - History of Present Illness MD Complaint: shortness of breath, anxiety <Viviana Hernandez - Last Filed: 09/20/23 07:10> - General Source: RN notes reviewed, old records reviewed, Caregiver Mode of arrival: EMS Limitations: no limitations - History of Present Illness MD Complaint: shortness of breath, cough, anxiety -: days(s) Radiation: back Severity: moderate Severity scale (1-10): 4 Quality: dull, aching Consistency: constant Improves With: nothing Worsens With: nothing Known History Of: COPD Context: recent URI, recent illness Associated Symptoms: denies other symptoms Treatments Prior to Arrival: none <Luis Alberto Azevedo - Last Filed: 09/25/23 16:31> <Rosaura Rodriguez - Last Filed: 10/07/23 10:47> - General Chief Complaint: Shortness of Breath Stated Complaint: SOB Time Seen by Provider: 09/19/23 10:00 - History of Present Illness Initial Comments: This is a 78-year-old male who presents to the emergency department for shortness of breath and anxiety. Patient reports a long-standing history of anxiety and panic attacks. States that today it got much worse and he also started to feel short of breath. Reports the shortness of breath as being related to the panic attacks. Also states that he has been increasingly depressed. Denies any suicidal or homicidal ideations. He does wear oxygen at home and has not had to increase how much he uses. He takes off the oxygen so he can go outside and smoke. His friend, who is his designated power of divorce attorney, states that he has been increasingly weak and struggling to get around the house. He is not caring for himself and not eating. He has also been hallucinating and seeing people in the house who are not there. He has visiting nurses, however he will not let them in, because he thinks there are too many people in the house. (Viviana Hernandez) This is a 78-year-old male to the emergency department for evaluation patient presents today for evaluation regards to anxiety stress panic attacks. Patient states he is depressed is increased depression but is not homicidal or suicidal. (Roskopp,Luis Alberto B) - Related Data Home Medications Medication Instructions Recorded Confirmed Metoprolol Tartrate [Lopressor] 12.5 mg PO BID 01/16/17 09/19/23 Ipratropium-Albuterol Nebulize 3 ml INHALATION RT-Q6H 10/16/17 09/19/23 [Duoneb 0.5 mg-3 mg/3 ml Soln] Albuterol Inhaler [Ventolin Hfa 2 puff INHALATION RT-Q4H PRN 03/22/22 09/19/23 Inhaler] Apixaban [Eliquis] 5 mg PO Q12HR 03/22/22 09/19/23 PARoxetine HCL [Paxil] 30 mg PO BID 03/22/22 09/19/23 Tolterodine Tartrate [Detrol LA] 4 mg PO DAILY 03/22/22 09/19/23 Cholecalciferol [Vitamin D3 (25 25 mcg PO DAILY 09/19/23 09/19/23 Mcg = 1000 Iu)] Ferrous Sulfate [Iron (65 MG 325 mg PO DAILY 09/19/23 09/19/23 Elemental)] Mupirocin 2% Oint [Bactroban 2% 1 applic TOPICAL BID 09/19/23 09/19/23 Oint] Pantoprazole Sodium [Protonix] 20 mg PO DAILY 09/19/23 09/19/23 Triamcinolone 0.1% Cream [Kenalog 1 applicatio TOPICAL BID 09/19/23 09/19/23 0.1% Cream] buPROPion XL [Wellbutrin XL] 150 mg PO DAILY 09/19/23 09/19/23 lisinopriL [Zestril] 10 mg PO DAILY 09/19/23 09/19/23 polyethylene glycoL 3350 [Miralax] 17 gm PO DAILY 09/19/23 09/19/23 Previous Rx's Medication Instructions Recorded Sodium Chloride Tab 1 gm PO DAILY #60 tablet 07/21/23 Allergies Allergy/AdvReac Type Severity Reaction Status Date / Time olanzapine Allergy Verified 09/19/23 14:01 Sulfa (Sulfonamide Allergy BLOOD IN Verified 09/19/23 14:01 Antibiotics) URINE A CHILD Review of Systems ROS Other: All systems not noted in ROS Statement are negative. <Viviana Hernandez - Last Filed: 09/20/23 07:10> ROS Other: All systems not noted in ROS Statement are negative. <JollyLuis Alberto Pilar - Last Filed: 09/25/23 16:31> ROS Other: All systems not noted in ROS Statement are negative. <Rosaura Rodriguez Benjamin - Last Filed: 10/07/23 10:47> ROS Statement: Those systems with pertinent positive or pertinent negative responses have been documented in the HPI. Past Medical History Past Medical History: Atrial Fibrillation, Atrial Flutter, COPD, GERD/Reflux, Hypertension, Osteoarthritis (OA), Pneumonia, Prostate Disorder Additional Past Medical History / Comment(s): BPH, tinnitis, Type 2 diabetes- diet controlled, DJD, oxygen at 3 liters prn., states some numbness right foot & right leg slightly weaker from hx of pinched nerves in back., urine leakage- wears depends. emmanuelle legs from knee down with rash, told was from bp being too high, when presses on lower legs leaves a dent.has compression sock coming [facility] dr aware of lower leg issues History of Any Multi-Drug Resistant Organisms: None Reported Past Surgical History: Back Surgery, Joint Replacement Additional Past Surgical History / Comment(s): back surgery with spinal fusion (2010)., EGD/colonoscopy, ant TRH 04/09/22 Past Anesthesia/Blood Transfusion Reactions: No Reported Reaction Past Psychological History: Anxiety, Bipolar Smoking Status: Former smoker Past Alcohol Use History: Occasional Past Drug Use History: None Reported - Past Family History Mother Family Medical History: Congestive Heart Failure (CHF) Additional Family Medical History / Comment(s): 4 uncles passed with [place] Sister(s) Family Medical History: Congestive Heart Failure (CHF) Additional Family Medical History / Comment(s): 1 sister from CHF Father Family Medical History: Cancer Additional Family Medical History / Comment(s): of sepsis after lung surge ry for suspected cancer <Viviana Hernandez - Last Filed: 09/20/23 07:10> General Exam Limitations: no limitations General appearance: alert, anxious Head exam: Present: atraumatic, normocephalic, normal inspection Respiratory exam: Present: decreased breath sounds, prolonged expiratory. Absent: wheezes, rales, rhonchi Cardiovascular Exam: Present: regular rate, normal rhythm, normal heart sounds. Absent: systolic murmur, diastolic murmur, rubs, gallop, clicks Neurological exam: Present: alert, oriented X3, CN II-XII intact Psychiatric exam: Present: anxious, flat affect. Absent: homicidal ideation, suicidal ideation Skin exam: Present: warm, dry, intact, normal color. Absent: rash <Viviana Hernandez - Last Filed: 09/20/23 07:10> Limitations: altered mental status, physical limitation General appearance: alert, in no apparent distress, anxious Head exam: Present: atraumatic, normocephalic, normal inspection Eye exam: Present: normal appearance, PERRL, EOMI. Absent: scleral icterus, conjunctival injection, periorbital swelling ENT exam: Present: normal exam, mucous membranes moist Neck exam: Present: normal inspection. Absent: tenderness, meningismus, lymphadenopathy Respiratory exam: Present: normal lung sounds bilaterally. Absent: respiratory distress, wheezes, rales, rhonchi, stridor Cardiovascular Exam: Present: regular rate, normal rhythm, normal heart sounds. Absent: systolic murmur, diastolic murmur, rubs, gallop, clicks GI/Abdominal exam: Present: soft, normal bowel sounds. Absent: distended, tenderness, guarding, rebound, rigid Extremities exam: Present: normal inspection, full ROM, normal capillary refill. Absent: tenderness, pedal edema, joint swelling, calf tenderness Back exam: Present: normal inspection Neurological exam: Present: alert, oriented X3, CN II-XII intact Psychiatric exam: Present: normal affect, normal mood Skin exam: Present: warm, dry, intact, normal color. Absent: rash <Luis Alberto Azevedo - Last Filed: 09/25/23 16:31> Course <Luis Alberto Azevedo - Last Filed: 09/25/23 16:31> Vital Signs 09/19/23 09/19/23 09/19/23 10:08 10:11 10:13 Temperature 97.8 F Pulse Rate 69 Respiratory 20 Rate Blood Pressure 105/64 O2 Sat by Pulse 90 L 99 Oximetry 09/19/23 09/19/23 09/19/23 10:30 11:00 11:30 Temperature Pulse Rate 86 85 82 Respiratory 16 18 17 Rate Blood Pressure 105/64 105/64 155/80 O2 Sat by Pulse Oximetry 09/19/23 09/19/23 09/19/23 12:00 12:30 14:00 Temperature Pulse Rate 80 89 81 Respiratory 16 18 18 Rate Blood Pressure 173/96 173/77 140/91 O2 Sat by Pulse 100 Oximetry 09/19/23 09/19/23 09/19/23 15:30 16:00 16:30 Temperature Pulse Rate 80 81 77 Respiratory 16 18 16 Rate Blood Pressure 134/84 136/71 165/90 O2 Sat by Pulse 100 90 L Oximetry 09/19/23 09/19/23 09/19/23 18:00 19:00 20:00 Temperature Pulse Rate 71 82 Respiratory 18 20 Rate Blood Pressure 128/80 O2 Sat by Pulse 100 82 L Oximetry 09/19/23 09/19/23 09/20/23 21:00 22:00 01:17 Temperature Pulse Rate 86 70 Respiratory 19 16 Rate Blood Pressure 141/112 141/112 148/90 O2 Sat by Pulse 79 L 99 Oximetry 09/20/23 09/20/23 09/20/23 03:01 06:05 08:00 Temperature Pulse Rate 68 69 82 Respiratory 16 16 18 Rate Blood Pressure 137/80 153/85 131/78 O2 Sat by Pulse 99 99 96 Oximetry 09/20/23 09/20/23 09/20/23 13:00 20:17 20:26 Temperature Pulse Rate 61 64 60 Respiratory 18 Rate Blood Pressure 114/76 O2 Sat by Pulse 95 Oximetry 09/21/23 09/21/23 09/21/23 05:28 08:00 11:45 Temperature 98.8 F Pulse Rate 71 73 55 L Respiratory 17 18 18 Rate Blood Pressure 154/85 110/92 121/55 O2 Sat by Pulse 99 94 L 100 Oximetry 09/21/23 09/21/23 09/21/23 16:50 19:46 19:57 Temperature 97.8 F Pulse Rate 65 61 74 Respiratory 16 Rate Blood Pressure 125/81 O2 Sat by Pulse 99 Oximetry 09/22/23 09/22/23 09/22/23 07:50 11:00 16:00 Temperature 97.0 F L 97.8 F 98.6 F Pulse Rate 60 56 L 59 L Respiratory 16 18 18 Rate Blood Pressure 157/69 124/76 133/81 O2 Sat by Pulse 98 94 L 98 Oximetry 09/22/23 09/22/23 09/22/23 17:35 17:43 20:00 Temperature 98 F Pulse Rate 58 L 58 L 63 Respiratory 16 16 18 Rate Blood Pressure 133/81 O2 Sat by Pulse 98 Oximetry 09/23/23 09/23/23 09/23/23 05:00 08:00 09:00 Temperature 97.7 F 98.5 F Pulse Rate 86 64 64 Respiratory 16 16 16 Rate Blood Pressure 134/79 115/64 110/60 O2 Sat by Pulse 97 95 99 Oximetry 09/23/23 09/23/23 09/23/23 10:00 11:04 11:13 Temperature Pulse Rate 84 68 72 Respiratory 20 Rate Blood Pressure 104/75 O2 Sat by Pulse 98 Oximetry 09/23/23 09/23/23 09/23/23 14:54 15:04 18:28 Temperature Pulse Rate 64 68 64 Respiratory 18 Rate Blood Pressure 118/67 O2 Sat by Pulse 93 L Oximetry 09/23/23 09/23/23 09/24/23 20:18 20:29 01:00 Temperature 98.4 F Pulse Rate 72 72 72 Respiratory 18 Rate Blood Pressure 110/70 O2 Sat by Pulse 98 Oximetry 09/24/23 09/24/23 09/24/23 06:07 07:34 07:44 Temperature Pulse Rate 74 60 64 Respiratory 18 Rate Blood Pressure 110/70 O2 Sat by Pulse 98 Oximetry 09/24/23 09/24/23 09/24/23 08:06 11:07 11:17 Temperature Pulse Rate 51 L 68 72 Respiratory 18 Rate Blood Pressure 135/89 O2 Sat by Pulse 94 L Oximetry 09/24/23 09/24/23 09/24/23 12:01 15:29 15:41 Temperature Pulse Rate 76 90 88 Respiratory 16 Rate Blood Pressure 163/84 O2 Sat by Pulse 95 Oximetry 09/24/23 09/24/23 09/24/23 20:00 21:11 21:18 Temperature Pulse Rate 73 73 78 Respiratory 18 Rate Blood Pressure 171/77 O2 Sat by Pulse 95 Oximetry 09/24/23 09/25/23 09/25/23 22:00 04:49 07:39 Temperature 98.3 F Pulse Rate 71 78 71 Respiratory 16 20 18 Rate Blood Pressure 155/81 152/85 155/97 O2 Sat by Pulse 99 95 93 L Oximetry 09/25/23 09/25/23 09/25/23 07:55 08:05 11:30 Temperature Pulse Rate 70 76 70 Respiratory Rate Blood Pressure O2 Sat by Pulse Oximetry 09/25/23 09/25/23 09/25/23 11:37 13:00 16:02 Temperature Pulse Rate 68 73 64 Respiratory 18 Rate Blood Pressure 120/86 O2 Sat by Pulse 95 Oximetry 09/25/23 09/25/23 09/25/23 16:09 17:08 21:08 Temperature Pulse Rate 66 72 70 Respiratory 17 17 Rate Blood Pressure 120/86 111/62 O2 Sat by Pulse 96 Oximetry - Reevaluation(s) Reevaluation #1: 09/19/23 22:02 Medical records reviewed Patient's family is at bedside he does state patient is unsafe to be living at home (Luis Alberto Azevedo) Reevaluation #2: 09/19/23 22:02 Medical clear for psychiatric evaluation (Luis Alberto Azevedo) Reevaluation #3: 09/25/23 16:32 Patient is reevaluated today for a week into his emergency department hospitalization for altered mental status. Patient does have imaging or lab values done showing cerebral contusion with recent change in mental status as well as hyponatremia. Patient be transferred for inpatient evaluation regarding low sodium, altered mental status increasing time we'll still need psychiatric evaluation (Luis Alberto Azevedo) Reevaluation #4: 09/25/23 16:38 Was pt. sent in by a medical professional or institution (PRERNA Bennett, REPORTING CONSULTANT, urgent care, hospital, or assisted...) When possible be specific @ -no Did you speak to anyone other than the patient for history (EMS, parent, family, police, friend...)? What history was obtained from this source @ -no Did you review nursing and triage notes (agree or disagree)? Why? @ -agree Are old charts reviewed (outside hosp., previous admission, EMS record, old EKG, old radiological studies, urgent care reports/EKG's, assisted records)? Report findings @ -yes Differential Diagnosis (chest pain, altered mental status, abdominal pain women, abdominal pain men, vaginal bleeding, weakness, fever, dyspnea, syncope, headache, dizziness, GI bleed, back pain, seizure, CVA, palpatations, mental health, musculoskeletal)? @ -prior EKG interpreted by me (3pts min.). @ -yes X-rays interpreted by me (1pt min.). @ -no CT interpreted by me (1pt min.). @ -yes U/S interpreted by me (1pt. min.). @ -no What testing was considered but not performed or refused? (CT, X-rays, U/S, labs)? Why? @ -none What meds were considered but not given or refused? Why? @ -none Did you discuss the management of the patient with other professionals (professionals i.e. , PA, REPORTING CONSULTANT, lab, RT, psych nurse, social psychologist, typesetting machine operator/tender, teacher, development officer, caseworker intake)? Give summary @ -no Was smoking cessation discussed for >3mins.? @ -no Was critical care preformed (if so, how long)? @ -no Were there social determinants of health that impacted care today? How? (Homelessness, low income, unemployed, alcoholism, drug addiction, transportation, low edu. Level, literacy, decrease access to med. care, snf, rehab)? @ -none Was there de-escalation of care discussed even if they declined (Discuss DNR or withdrawal of care, Hospice)? DNR status @ -no What co-morbidities impacted this encounter? (DM, HTN, Smoking, COPD, CAD, Cancer, CVA, ARF, Chemo, Hep., AIDS, mental health diagnosis, sleep apnea, morbid obesity)? @ -none Was patient admitted / discharged? Hospital course, mention meds given and route, prescriptions, significant lab abnormalities, going to OR and other pertinent info. @ - 78 male will be transferred for inpatient neurological evaluation secondary to cerebral contusions, patient does have persistent urinary tract infection, hyponatremia and will continue needs psychiatric evaluation regarding depression. Patient will be transferred to [facility] Admitted Undiagnosed new problem with uncertain prognosis? @ -no Drug Therapy requiring intensive monitoring for toxicity (Heparin, Nitro, Insulin, Cardizem)? @ -no Were any procedures done? @ -no Diagnosis/symptom? @ -Bilateral cerebral contusions, hyponatremia, urinary tract infection, depr ession Acute, or Chronic, or Acute on Chronic? @ -Acute Uncomplicated (without systemic symptoms) or Complicated (systemic symptoms)? @ -Complicated Side effects of treatment? @ -no Exacerbation, Progression, or Severe Exacerbation? @ -exacerbation Poses a threat to life or bodily function? How? (Chest pain, [place], [place], pneumonia, PE, COPD, DKA, ARF, appy, cholecystitis, CVA, Diverticulitis, Homicidal, Suicidal, threat to staff... and all critical care pts) @ -yes with significant cerebral edema (Luis Alberto Azevedo) Reevaluation #5: 09/25/23 16:33 Differential Altered Mental Status: Hypoglycemia, DKA, hypercapnia, ETOH, overdose, CO poisoning, trauma, myxedema coma, HTN encephalopathy, infection, encephalitis, psychosis, intercranial hemorrhage, hepatic encephalopathy, meningitis, CVA, this is not meant to be an all-inclusive list (Luis Alberto Azevedo) - Consultations Consultation #1: Spoke [facility] does accept the patient is a transfer (Luis Alberto Azevedo) Medical Decision Making - Lab Data Result diagrams: 09/19/23 10:26 09/19/23 10:26 - Radiology Data Radiology results: report reviewed, image reviewed <Viviana Hernandez - Last Filed: 09/20/23 07:10> - Lab Data Result diagrams: 09/25/23 12:51 09/25/23 12:51 - EKG Data -: EKG Interpreted by Me (EKG shows atrial fibrillation rate of 77 MN, QRS 83 QTC 384) - Radiology Data Radiology results: report reviewed (CT brain negative for acute disease, repeat computed tomography scan today does show positive cerebral contusion), image reviewed <Luis Alberto Azevedo - Last Filed: 09/25/23 16:31> - Lab Data Result diagrams: 09/25/23 12:51 09/25/23 12:51 <Rosaura Rodriguez - Last Filed: 10/07/23 10:47> - Medical Decision Making This is a 78-year-old male who presents to the emergency department for morgan rtness of breath Was pt. sent in by a medical professional or institution? @ -No Did you speak to anyone other than the patient for history? @ -His designated power of divorce attorney provided the information about the weakness and hallucinations. Did you review nursing and triage notes? @ -Yes, and I agree, it is accurate with regards to the patient's symptoms. Were old charts reviewed? @ -No Differential Diagnosis? @ -Differential Dyspnea: Coronary syndrome, arrhythmia, tamponade, asthma, COPD, pulmonary embolism, pneumonia, pneumothorax, pulmonary effusion, anaphylaxis, diabetic ketoacidosis, flailed chest, pulmonary contusion, diaphragmatic rupture, anemia, neuromuscular, this is not meant to be an all-inclusive list. -Differential Mental Health: Depression, anxiety, bipolar, psychosis, schizophrenia, borderline personality, situational depression, adjustment disorder, behavioral disorder, brain tumor, malingering, substance abuse, encephalopathy, medication reaction, dementia, hypothyroidism, degenerative neurologic disorder, lupus.... This is not meant to be all-inclusive list EKG interpreted by me (3pts min.)? @ -EKG interpreted by me demonstrating the following: Atrial fibrillation. Ventricular rate 77 bpm, QRS duration 83 ms, QTC 384 ms. X-rays interpreted by me (1pt min.)? @ -Chest x-ray obtained, my interpretation identifies no localized consolidations or infiltrates. CT interpreted by me (1pt min.)? @ -CT scan of the brain obtained. My interpretation identifies no evidence of an acute intracranial hemorrhage. U/S interpreted by me (1pt. min.)? @ -Not obtained What testing was considered but not performed? (CT, X-rays, U/S, labs)? Why? @ -None What meds were considered but not given? Why? @ -None Did you discuss the management of the patient with other professionals? @ -Yes, EPS, who discussed the case with psychiatry who [facility]. Did you reconcile home meds? @ -No Was smoking cessation discussed for >3mins.? @ -No Was critical care preformed (if so, how long)? @ -No Were there social determinants of health that impacted care today? How? (Homelessness, low income, unemployed, alcoholism, drug addiction, transporta tion, low edu. Level, literacy, decrease access to med. care, snf, rehab)? @ -No Was there de-escalation of care discussed even if they declined? (Discuss DNR or withdrawal of care, Hospice)? @ -No What co-morbidities impacted this encounter? (DM, HTN, Smoking, COPD, CAD, Cancer, CVA, Hep., AIDS, mental health diagnosis, sleep apnea, morbid obesity)? @ -A-fib, COPD, anxiety, depression Was patient admitted / discharged? @ -Lab work obtained and found to be nonactionable. Urinalysis negative for signs of infection. Chest x-ray negative for any acute process. In discussion with the patient's DPOA, it seems like their main concern is that the patient lives alone and is experiencing active hallucinations, preventing him from caring for himself and preventing him from allowing others to help him. EPS evaluated the patient, and advised a computed tomography scan of the brain to rule out other medical causes. This was obtained revealing no acute findings. I touched base again with EPS. They spoke with psychiatry, who advised that they will work on transfer to a [facility] psych facility or the PA for further management. This was discussed with the patient and his family, who are in agreement with this plan. Patient did have trouble urinating, in that he was having episodes of incontinence, and at times experiencing some retention. A Bis[place] catheter was subsequently inserted per the patient and family's request, which he found beneficial. Undiagnosed new problem with uncertain prognosis? @ -None Drug Therapy requiring intensive monitoring for toxicity (Heparin, Nitro, Insulin, Cardizem)? @ -None Were any procedures done? @ -None Diagnosis/symptom? @ -Hallucinations, failure to thrive Acute, or Chronic, or Acute on Chronic? @ -Acute Uncomplicated (without systemic symptoms) or Complicated (systemic symptoms)? @ -Uncomplicated Side effects of treatment? @ -None Exacerbation, Progression, or Severe Exacerbation] @ -Not applicable Poses a threat to life or bodily function? @ -Yes This case was discussed in detail with the attending ED physician, Dr. Azevedo. Presentation, findings, and treatment plan discussed in detail as well. (Viviana Hernandez) 78 male who will be transferred for acute change in mental status, bilateral frontal lobe contusions with fall prior to ER hospitalization. At this time falls greater than 1 week so he is not activated as a trauma. Patient does have hyponatremia, patient is put on IV hydration and he was also found of urinary tract infection here in our ER which will continue antibiotics. (Kade Azevedo) I was called to see the nurse at 1300 as they felt that the patient had a change in his mental status. I evaluated the patient myself and he does seem fatigued. He is oriented 3. Laboratory studies, ABG, brain CT and chest x-ray are all ordered. I reviewed the studies myself. CT does demonstrate questionable frontal lobe contusions. At this time the patient requires transfer. He'll way would like the patient transferred to closest facility which would be [facility]. Patient will be signed out to Dr. Azevedo for transfer (MichaelRosaura Alexander) - Lab Data Lab Results 09/19/23 09/19/23 09/19/23 Range/Units 10: 10: 10: WBC 5.0 (3.8-10.6) k/uL RBC 3.78 L (4.30-5.90) m/uL Hgb 12.0 L (13.0-17.5) gm/dL Hct 34.8 L (39.0-53.0) % MCV 91.9 (80.0-100.0) fL MCH 31.7 (25.0-35.0) pg MCHC 34.5 (31.0-37.0) g/dL RDW 13.7 (11.5-15.5) % Plt Count 285 (150-450) k/uL MPV 7.0 Neutrophils % 80 % Lymphocytes % 12 % Monocytes % 5 % Eosinophils % 1 % Basophils % 0 % Neutrophils # 4.0 (1.3-7.7) k/uL Lymphocytes # 0.6 L (1.0-4.8) k/uL Monocytes # 0.3 (0-1.0) k/uL Eosinophils # 0.0 (0-0.7) k/uL Basophils # 0.0 (0-0.2) k/uL PT 10.4 (10.0-12.5) sec INR 0.9 (<1.2) APTT 23.3 (22.0-30.0) sec Sample Site ABG pH (7.35-7.45) ABG pCO2 (35-45) mmHg ABG pO2 (83-108) mmHg ABG HCO3 (21-25) mmol/L ABG Total CO2 (19-24) mmol/L ABG O2 Saturation (94-97) % ABG Base Excess mmol/L Wan Test FiO2 % Sodium (137-145) mmol/L Potassium (3.5-5.1) mmol/L Chloride (98-107) mmol/L Carbon Dioxide (22-30) mmol/L Anion Gap mmol/L BUN (9-20) mg/dL Creatinine (0.66-1.25) mg/dL Est GFR (CKD-EPI)AfAm (>60 ml/min/1.73 sqM) Est GFR (CKD-EPI)NonAf (>60 ml/min/1.73 sqM) Glucose (74-99) mg/dL POC Glucose (mg/dL) (70-110) mg/dL POC Glu Drawer In [place] ID Plasma Lactic Acid Jan (0.7-2.0) mmol/L Calcium (8.4-10.2) mg/dL Total Bilirubin (0.2-1.3) mg/dL AST (17-59) U/L ALT (4-49) U/L Alkaline Phosphatase (38-126) U/L Ammonia (<30) umol/L Troponin I (0.000-0.034) ng/mL Total Protein (6.3-8.2) g/dL Albumin (3.5-5.0) g/dL Vitamin B1 (38-122) ug/L TSH (0.465-4.680) mIU/L Urine Color Yellow Urine Appearance Clear (Clear) Urine pH 7.0 (5.0-8.0) Ur Specific [place] 1.020 (1.001-1.035) Urine Protein Negative (Negative) Urine Glucose (UA) Negative (Negative) Urine Ketones Negative (Negative) Urine Blood Negative (Negative) Urine Nitrite Negative (Negative) Urine Bilirubin Negative (Negative) Urine Urobilinogen <2.0 (<2.0) mg/dL Ur Leukocyte Esterase Negative (Negative) Urine RBC (0-5) /hpf Urine WBC (0-5) /hpf Urine WBC Clumps (None) /hpf Ur Squamous Epith Cells (0-4) /hpf Amorphous Sediment (None) /hpf Urine Bacteria (None) /hpf Urine Mucus (None) /hpf Urine Opiates Screen (NotDetected) Ur Oxycodone Screen (NotDetected) Urine Methadone Screen (NotDetected) Ur Propoxyphene Screen (NotDetected) Ur Barbiturates Screen (NotDetected) U Tricyclic Antidepress (NotDetected) Ur Phencyclidine Scrn (NotDetected) Ur Amphetamines Screen (NotDetected) U Methamphetamines Scrn (NotDetected) U Benzodiazepines Scrn (NotDetected) Urine Cocaine Screen (NotDetected) U Marijuana (THC) Screen (NotDetected) Serum Alcohol mg/dL Coronavirus (PCR) (Not Detectd) Influenza Type A (PCR) (Not Detectd) Influenza Type B (PCR) (Not Detectd) RSV (PCR) (Not Detectd) SARS-CoV-2 (PCR) (Not Detectd) 09/19/23 09/19/23 09/19/23 Range/Units 10: 10: 10: WBC (3.8-10.6) k/uL RBC (4.30-5.90) m/uL Hgb (13.0-17.5) gm/dL Hct (39.0-53.0) % MCV (80.0-100.0) fL MCH (25.0-35.0) pg MCHC (31.0-37.0) g/dL RDW (11.5-15.5) % Plt Count (150-450) k/uL MPV Neutrophils % % Lymphocytes % % Monocytes % % Eosinophils % % Basophils % % Neutrophils # (1.3-7.7) k/uL Lymphocytes # (1.0-4.8) k/uL Monocytes # (0-1.0) k/uL Eosinophils # (0-0.7) k/uL Basophils # (0-0.2) k/uL PT (10.0-12.5) sec INR (<1.2) APTT (22.0-30.0) sec Sample Site ABG pH (7.35-7.45) ABG pCO2 (35-45) mmHg ABG pO2 (83-108) mmHg ABG HCO3 (21-25) mmol/L ABG Total CO2 (19-24) mmol/L ABG O2 Saturation (94-97) % ABG Base Excess mmol/L Wan Test FiO2 % Sodium 131 L (137-145) mmol/L Potassium 4.0 (3.5-5.1) mmol/L Chloride 87 L (98-107) mmol/L Carbon Dioxide 40 H (22-30) mmol/L Anion Gap 4 mmol/L BUN 11 (9-20) mg/dL Creatinine 0.39 L (0.66-1.25) mg/dL Est GFR (CKD-EPI)AfAm >90 (>60 ml/min/1.73 sqM) Est GFR (CKD-EPI)NonAf >90 (>60 ml/min/1.73 sqM) Glucose 116 H (74-99) mg/dL POC Glucose (mg/dL) (70-110) mg/dL POC Glu Drawer In Plain [place]oom ID Plasma Lactic Acid Jan 0.8 (0.7-2.0) mmol/L Calcium 8.9 (8.4-10.2) mg/dL Total Bilirubin 0.6 (0.2-1.3) mg/dL AST 25 (17-59) U/L ALT 17 (4-49) U/L Alkaline Phosphatase 88 (38-126) U/L Ammonia (<30) umol/L Troponin I 0.012 (0.000-0.034) ng/mL Total Protein 6.7 (6.3-8.2) g/dL Albumin 3.6 (3.5-5.0) g/dL Vitamin B1 (38-122) ug/L TSH (0.465-4.680) mIU/L Urine Color Urine Appearance (Clear) Urine pH (5.0-8.0) Ur Specific [place] (1.001-1.035) Urine Protein (Negative) Urine Glucose (UA) (Negative) Urine Ketones (Negative) Urine Blood (Negative) Urine Nitrite (Negative) Urine Bilirubin (Negative) Urine Urobilinogen (<2.0) mg/dL Ur Leukocyte Esterase (Negative) Urine RBC (0-5) /hpf Urine WBC (0-5) /hpf Urine WBC Clumps (None) /hpf Ur Squamous Epith Cells (0-4) /hpf Amorphous Sediment (None) /hpf Urine Bacteria (None) /hpf Urine Mucus (None) /hpf Urine Opiates Screen (NotDetected) Ur Oxycodone Screen (NotDetected) Urine Methadone Screen (NotDetected) Ur Propoxyphene Screen (NotDetected) Ur Barbiturates Screen (NotDetected) U Tricyclic Antidepress (NotDetected) Ur Phencyclidine Scrn (NotDetected) Ur Amphetamines Screen (NotDetected) U Methamphetamines Scrn (NotDetected) U Benzodiazepines Scrn (NotDetected) Urine Cocaine Screen (NotDetected) U Marijuana (THC) Screen (NotDetected) Serum Alcohol <10 mg/dL Coronavirus (PCR) (Not Detectd) Influenza Type A (PCR) (Not Detectd) Influenza Type B (PCR) (Not Detectd) RSV (PCR) (Not Detectd) SARS-CoV-2 (PCR) (Not Detectd) 09/19/23 09/20/23 09/22/23 Range/Units 12:44 01:29 01:09 WBC (3.8-10.6) k/uL RBC (4.30-5.90) m/uL Hgb (13.0-17.5) gm/dL Hct (39.0-53.0) % MCV (80.0-100.0) fL MCH (25.0-35.0) pg MCHC (31.0-37.0) g/dL RDW (11.5-15.5) % Plt Count (150-450) k/uL MPV Neutrophils % % Lymphocytes % % Monocytes % % Eosinophils % % Basophils % % Neutrophils # (1.3-7.7) k/uL Lymphocytes # (1.0-4.8) k/uL Monocytes # (0-1.0) k/uL Eosinophils # (0-0.7) k/uL Basophils # (0-0.2) k/uL PT (10.0-12.5) sec INR (<1.2) APTT (22.0-30.0) sec Sample Site ABG pH (7.35-7.45) ABG pCO2 (35-45) mmHg ABG pO2 (83-108) mmHg ABG HCO3 (21-25) mmol/L ABG Total CO2 (19-24) mmol/L ABG O2 Saturation (94-97) % ABG Base Excess mmol/L Wan Test FiO2 % Sodium (137-145) mmol/L Potassium (3.5-5.1) mmol/L Chloride (98-107) mmol/L Carbon Dioxide (22-30) mmol/L Anion Gap mmol/L BUN (9-20) mg/dL Creatinine (0.66-1.25) mg/dL Est GFR (CKD-EPI)AfAm (>60 ml/min/1.73 sqM) Est GFR (CKD-EPI)NonAf (>60 ml/min/1.73 sqM) Glucose (74-99) mg/dL POC Glucose (mg/dL) (70-110) mg/dL POC Glu Drawer In Plain [place]oom ID Plasma Lactic Acid Jan (0.7-2.0) mmol/L Calcium (8.4-10.2) mg/dL Total Bilirubin (0.2-1.3) mg/dL AST (17-59) U/L ALT (4-49) U/L Alkaline Phosphatase (38-126) U/L Ammonia (<30) umol/L Troponin I (0.000-0.034) ng/mL Total Protein (6.3-8.2) g/dL Albumin (3.5-5.0) g/dL Vitamin B1 (38-122) ug/L TSH (0.465-4.680) mIU/L Urine Color Yellow Urine Appearance Turbid (Clear) Urine pH 8.5 H (5.0-8.0) Ur Specific [place] 1.022 (1.001-1.035) Urine Protein 1+ H (Negative) Urine Glucose (UA) Negative (Negative) Urine Ketones Negative (Negative) Urine Blood Moderate H (Negative) Urine Nitrite Positive (Negative) Urine Bilirubin Negative (Negative) Urine Urobilinogen 2.0 (<2.0) mg/dL Ur Leukocyte Esterase Large H (Negative) Urine RBC 30 H (0-5) /hpf Urine WBC 53 H (0-5) /hpf Urine WBC Clumps Rare H (None) /hpf Ur Squamous Epith Cells (0-4) /hpf Amorphous Sediment Few H (None) /hpf Urine Bacteria Occasional H (None) /hpf Urine Mucus Rare H (None) /hpf Urine Opiates Screen Not Detected (NotDetected) Ur Oxycodone Screen Not Detected (NotDetected) Urine Methadone Screen Not Detected (NotDetected) Ur Propoxyphene Screen Not Detected (NotDetected) Ur Barbiturates Screen Not Detected (NotDetected) U Tricyclic Antidepress Not Detected (NotDetected) Ur Phencyclidine Scrn Not Detected (NotDetected) Ur Amphetamines Screen Not Detected (NotDetected) U Methamphetamines Scrn Not Detected (NotDetected) U Benzodiazepines Scrn Not Detected (NotDetected) Urine Cocaine Screen Not Detected (NotDetected) U Marijuana (THC) Screen Not Detected (NotDetected) Serum Alcohol mg/dL Coronavirus (PCR) (Not Detectd) Influenza Type A (PCR) Not Detected (Not Detectd) Influenza Type B (PCR) Not Detected (Not Detectd) RSV (PCR) Not Detected (Not Detectd) SARS-CoV-2 (PCR) Not Detected (Not Detectd) 09/23/23 09/23/23 09/23/23 Range/Units 12:00 12:22 12:22 WBC 4.0 (3.8-10.6) k/uL RBC 3.67 L (4.30-5.90) m/uL Hgb 11.6 L (13.0-17.5) gm/dL Hct 33.3 L (39.0-53.0) % MCV 90.7 (80.0-100.0) fL MCH 31.6 (25.0-35.0) pg MCHC 34.8 (31.0-37.0) g/dL RDW 13.8 (11.5-15.5) % Plt Count 287 (150-450) k/uL MPV 7.4 Neutrophils % 71 % Lymphocytes % 15 % Monocytes % 10 % Eosinophils % 2 % Basophils % 0 % Neutrophils # 2.8 (1.3-7.7) k/uL Lymphocytes # 0.6 L (1.0-4.8) k/uL Monocytes # 0.4 (0-1.0) k/uL Eosinophils # 0.1 (0-0.7) k/uL Basophils # 0.0 (0-0.2) k/uL PT (10.0-12.5) sec INR (<1.2) APTT (22.0-30.0) sec Sample Site ABG pH (7.35-7.45) ABG pCO2 (35-45) mmHg ABG pO2 (83-108) mmHg ABG HCO3 (21-25) mmol/L ABG Total CO2 (19-24) mmol/L ABG O2 Saturation (94-97) % ABG Base Excess mmol/L Wan Test FiO2 % Sodium 127 L (137-145) mmol/L Potassium 3.8 (3.5-5.1) mmol/L Chloride 85 L (98-107) mmol/L Carbon Dioxide 37 H (22-30) mmol/L Anion Gap 5 mmol/L BUN 13 (9-20) mg/dL Creatinine 0.53 L (0.66-1.25) mg/dL Est GFR (CKD-EPI)AfAm >90 (>60 ml/min/1.73 sqM) Est GFR (CKD-EPI)NonAf >90 (>60 ml/min/1.73 sqM) Glucose 60 L (74-99) mg/dL POC Glucose (mg/dL) (70-110) mg/dL POC Glu Drawer In Plain [place]oom ID Plasma Lactic Acid Jan (0.7-2.0) mmol/L Calcium 8.5 (8.4-10.2) mg/dL Total Bilirubin 0.4 (0.2-1.3) mg/dL AST 25 (17-59) U/L ALT 16 (4-49) U/L Alkaline Phosphatase 83 (38-126) U/L Ammonia (<30) umol/L Troponin I (0.000-0.034) ng/mL Total Protein 5.9 L (6.3-8.2) g/dL Albumin 3.2 L (3.5-5.0) g/dL Vitamin B1 (38-122) ug/L TSH 1.950 (0.465-4.680) mIU/L Urine Color Urine Appearance (Clear) Urine pH (5.0-8.0) Ur Specific [place] (1.001-1.035) Urine Protein (Negative) Urine Glucose (UA) (Negative) Urine Ketones (Negative) Urine Blood (Negative) Urine Nitrite (Negative) Urine Bilirubin (Negative) Urine Urobilinogen (<2.0) mg/dL Ur Leukocyte Esterase (Negative) Urine RBC (0-5) /hpf Urine WBC (0-5) /hpf Urine WBC Clumps (None) /hpf Ur Squamous Epith Cells (0-4) /hpf Amorphous Sediment (None) /hpf Urine Bacteria (None) /hpf Urine Mucus (None) /hpf Urine Opiates Screen (NotDetected) Ur Oxycodone Screen (NotDetected) Urine Methadone Screen (NotDetected) Ur Propoxyphene Screen (NotDetected) Ur Barbiturates Screen (NotDetected) U Tricyclic Antidepress (NotDetected) Ur Phencyclidine Scrn (NotDetected) Ur Amphetamines Screen (NotDetected) U Methamphetamines Scrn (NotDetected) U Benzodiazepines Scrn (NotDetected) Urine Cocaine Screen (NotDetected) U Marijuana (THC) Screen (NotDetected) Serum Alcohol mg/dL Coronavirus (PCR) Not Detected (Not Detectd) Influenza Type A (PCR) (Not Detectd) Influenza Type B (PCR) (Not Detectd) RSV (PCR) (Not Detectd) SARS-CoV-2 (PCR) (Not Detectd) 09/24/23 09/24/23 09/24/23 Range/Units 14:08 16:01 21:10 WBC (3.8-10.6) k/uL RBC (4.30-5.90) m/uL Hgb (13.0-17.5) gm/dL Hct (39.0-53.0) % MCV (80.0-100.0) fL MCH (25.0-35.0) pg MCHC (31.0-37.0) g/dL RDW (11.5-15.5) % Plt Count (150-450) k/uL MPV Neutrophils % % Lymphocytes % % Monocytes % % Eosinophils % % Basophils % % Neutrophils # (1.3-7.7) k/uL Lymphocytes # (1.0-4.8) k/uL Monocytes # (0-1.0) k/uL Eosinophils # (0-0.7) k/uL Basophils # (0-0.2) k/uL PT (10.0-12.5) sec INR (<1.2) APTT (22.0-30.0) sec Sample Site ABG pH (7.35-7.45) ABG pCO2 (35-45) mmHg ABG pO2 (83-108) mmHg ABG HCO3 (21-25) mmol/L ABG Total CO2 (19-24) mmol/L ABG O2 Saturation (94-97) % ABG Base Excess mmol/L Wan Test FiO2 % Sodium 125 L (137-145) mmol/L Potassium 4.0 (3.5-5.1) mmol/L Chloride 85 L (98-107) mmol/L Carbon Dioxide 34 H (22-30) mmol/L Anion Gap 6 mmol/L BUN 11 (9-20) mg/dL Creatinine 0.51 L (0.66-1.25) mg/dL Est GFR (CKD-EPI)AfAm >90 (>60 ml/min/1.73 sqM) Est GFR (CKD-EPI)NonAf >90 (>60 ml/min/1.73 sqM) Glucose 100 H (74-99) mg/dL POC Glucose (mg/dL) (70-110) mg/dL POC Glu Drawer In Plain [place] ID Plasma Lactic Acid Jan (0.7-2.0) mmol/L Calcium 8.5 (8.4-10.2) mg/dL Total Bilirubin (0.2-1.3) mg/dL AST (17-59) U/L ALT (4-49) U/L Alkaline Phosphatase (38-126) U/L Ammonia (<30) umol/L Troponin I (0.000-0.034) ng/mL Total Protein (6.3-8.2) g/dL Albumin (3.5-5.0) g/dL Vitamin B1 43 (38-122) ug/L TSH (0.465-4.680) mIU/L Urine Color Yellow Urine Appearance Clear (Clear) Urine pH 8.0 (5.0-8.0) Ur Specific [place] 1.015 (1.001-1.035) Urine Protein Negative (Negative) Urine Glucose (UA) Negative (Negative) Urine Ketones Negative (Negative) Urine Blood Negative (Negative) Urine Nitrite Negative (Negative) Urine Bilirubin Negative (Negative) Urine Urobilinogen 0.2 (<2.0) mg/dL Ur Leukocyte Esterase Negative (Negative) Urine RBC (0-5) /hpf Urine WBC (0-5) /hpf Urine WBC Clumps (None) /hpf Ur Squamous Epith Cells (0-4) /hpf Amorphous Sediment (None) /hpf Urine Bacteria (None) /hpf Urine Mucus (None) /hpf Urine Opiates Screen (NotDetected) Ur Oxycodone Screen (NotDetected) Urine Methadone Screen (NotDetected) Ur Propoxyphene Screen (NotDetected) Ur Barbiturates Screen (NotDetected) U Tricyclic Antidepress (NotDetected) Ur Phencyclidine Scrn (NotDetected) Ur Amphetamines Screen (NotDetected) U Methamphetamines Scrn (NotDetected) U Benzodiazepines Scrn (NotDetected) Urine Cocaine Screen (NotDetected) U Marijuana (THC) Screen (NotDetected) Serum Alcohol mg/dL Coronavirus (PCR) (Not Detectd) Influenza Type A (PCR) (Not Detectd) Influenza Type B (PCR) (Not Detectd) RSV (PCR) (Not Detectd) SARS-CoV-2 (PCR) (Not Detectd) 09/25/23 09/25/23 09/25/23 Range/Units 12:51 12:51 12:53 WBC 5.4 (3.8-10.6) k/uL RBC 3.56 L (4.30-5.90) m/uL Hgb 11.3 L (13.0-17.5) gm/dL Hct 31.9 L (39.0-53.0) % MCV 89.6 (80.0-100.0) fL MCH 31.6 (25.0-35.0) pg MCHC 35.3 (31.0-37.0) g/dL RDW 13.9 (11.5-15.5) % Plt Count 283 (150-450) k/uL MPV 7.1 Neutrophils % 84 % Lymphocytes % 8 % Monocytes % 6 % Eosinophils % 0 % Basophils % 0 % Neutrophils # 4.5 (1.3-7.7) k/uL Lymphocytes # 0.5 L (1.0-4.8) k/uL Monocytes # 0.3 (0-1.0) k/uL Eosinophils # 0.0 (0-0.7) k/uL Basophils # 0.0 (0-0.2) k/uL PT (10.0-12.5) sec INR (<1.2) APTT (22.0-30.0) sec Sample Site ABG pH (7.35-7.45) ABG pCO2 (35-45) mmHg ABG pO2 (83-108) mmHg ABG HCO3 (21-25) mmol/L ABG Total CO2 (19-24) mmol/L ABG O2 Saturation (94-97) % ABG Base Excess mmol/L Wan Test FiO2 % Sodium 123 L (137-145) mmol/L Potassium 4.3 (3.5-5.1) mmol/L Chloride 85 L (98-107) mmol/L Carbon Dioxide 32 H (22-30) mmol/L Anion Gap 6 mmol/L BUN 11 (9-20) mg/dL Creatinine 0.50 L (0.66-1.25) mg/dL Est GFR (CKD-EPI)AfAm >90 (>60 ml/min/1.73 sqM) Est GFR (CKD-EPI)NonAf >90 (>60 ml/min/1.73 sqM) Glucose 115 H (74-99) mg/dL POC Glucose (mg/dL) 127 H (70-110) mg/dL POC Glu Drawer In Plain [place] ID Rosaura Saez Plasma Lactic Acid Jan (0.7-2.0) mmol/L Calcium 8.9 (8.4-10.2) mg/dL Total Bilirubin 0.8 (0.2-1.3) mg/dL AST 33 (17-59) U/L ALT 18 (4-49) U/L Alkaline Phosphatase 79 (38-126) U/L Ammonia (<30) umol/L Troponin I (0.000-0.034) ng/mL Total Protein 6.1 L (6.3-8.2) g/dL Albumin 3.3 L (3.5-5.0) g/dL Vitamin B1 (38-122) ug/L TSH (0.465-4.680) mIU/L Urine Color Urine Appearance (Clear) Urine pH (5.0-8.0) Ur Specific [place] (1.001-1.035) Urine Protein (Negative) Urine Glucose (UA) (Negative) Urine Ketones (Negative) Urine Blood (Negative) Urine Nitrite (Negative) Urine Bilirubin (Negative) Urine Urobilinogen (<2.0) mg/dL Ur Leukocyte Esterase (Negative) Urine RBC (0-5) /hpf Urine WBC (0-5) /hpf Urine WBC Clumps (None) /hpf Ur Squamous Epith Cells (0-4) /hpf Amorphous Sediment (None) /hpf Urine Bacteria (None) /hpf Urine Mucus (None) /hpf Urine Opiates Screen (NotDetected) Ur Oxycodone Screen (NotDetected) Urine Methadone Screen (NotDetected) Ur Propoxyphene Screen (NotDetected) Ur Barbiturates Screen (NotDetected) U Tricyclic Antidepress (NotDetected) Ur Phencyclidine Scrn (NotDetected) Ur Amphetamines Screen (NotDetected) U Methamphetamines Scrn (NotDetected) U Benzodiazepines Scrn (NotDetected) Urine Cocaine Screen (NotDetected) U Marijuana (THC) Screen (NotDetected) Serum Alcohol mg/dL Coronavirus (PCR) (Not Detectd) Influenza Type A (PCR) (Not Detectd) Influenza Type B (PCR) (Not Detectd) RSV (PCR) (Not Detectd) SARS-CoV-2 (PCR) (Not Detectd) 09/25/23 09/25/23 09/25/23 Range/Units 12:55 13:02 13:02 WBC (3.8-10.6) k/uL RBC (4.30-5.90) m/uL Hgb (13.0-17.5) gm/dL Hct (39.0-53.0) % MCV (80.0-100.0) fL MCH (25.0-35.0) pg MCHC (31.0-37.0) g/dL RDW (11.5-15.5) % Plt Count (150-450) k/uL MPV Neutrophils % % Lymphocytes % % Monocytes % % Eosinophils % % Basophils % % Neutrophils # (1.3-7.7) k/uL Lymphocytes # (1.0-4.8) k/uL Monocytes # (0-1.0) k/uL Eosinophils # (0-0.7) k/uL Basophils # (0-0.2) k/uL PT 11.1 (10.0-12.5) sec INR 1.0 (<1.2) APTT 29.8 (22.0-30.0) sec Sample Site ABG pH (7.35-7.45) ABG pCO2 (35-45) mmHg ABG pO2 (83-108) mmHg ABG HCO3 (21-25) mmol/L ABG Total CO2 (19-24) mmol/L ABG O2 Saturation (94-97) % ABG Base Excess mmol/L Wna Test FiO2 % Sodium (137-145) mmol/L Potassium (3.5-5.1) mmol/L Chloride (98-107) mmol/L Carbon Dioxide (22-30) mmol/L Anion Gap mmol/L BUN (9-20) mg/dL Creatinine (0.66-1.25) mg/dL Est GFR (CKD-EPI)AfAm (>60 ml/min/1.73 sqM) Est GFR (CKD-EPI)NonAf (>60 ml/min/1.73 sqM) Glucose (74-99) mg/dL POC Glucose (mg/dL) (70-110) mg/dL POC Glu Drawer In [place] ID Plasma Lactic Acid Jan (0.7-2.0) mmol/L Calcium (8.4-10.2) mg/dL Total Bilirubin (0.2-1.3) mg/dL AST (17-59) U/L ALT (4-49) U/L Alkaline Phosphatase (38-126) U/L Ammonia <9 (<30) umol/L Troponin I <0.012 (0.000-0.034) ng/mL Total Protein (6.3-8.2) g/dL Albumin (3.5-5.0) g/dL Vitamin B1 (38-122) ug/L TSH (0.465-4.680) mIU/L Urine Color Urine Appearance (Clear) Urine pH (5.0-8.0) Ur Specific [place] (1.001-1.035) Urine Protein (Negative) Urine Glucose (UA) (Negative) Urine Ketones (Negative) Urine Blood (Negative) Urine Nitrite (Negative) Urine Bilirubin (Negative) Urine Urobilinogen (<2.0) mg/dL Ur Leukocyte Esterase (Negative) Urine RBC (0-5) /hpf Urine WBC (0-5) /hpf Urine WBC Clumps (None) /hpf Ur Squamous Epith Cells (0-4) /hpf Amorphous Sediment (None) /hpf Urine Bacteria (None) /hpf Urine Mucus (None) /hpf Urine Opiates Screen (NotDetected) Ur Oxycodone Screen (NotDetected) Urine Methadone Screen (NotDetected) Ur Propoxyphene Screen (NotDetected) Ur Barbiturates Screen (NotDetected) U Tricyclic Antidepress (NotDetected) Ur Phencyclidine Scrn (NotDetected) Ur Amphetamines Screen (NotDetected) U Methamphetamines Scrn (NotDetected) U Benzodiazepines Scrn (NotDetected) Urine Cocaine Screen (NotDetected) U Marijuana (THC) Screen (NotDetected) Serum Alcohol mg/dL Coronavirus (PCR) (Not Detectd) Influenza Type A (PCR) (Not Detectd) Influenza Type B (PCR) (Not Detectd) RSV (PCR) (Not Detectd) SARS-CoV-2 (PCR) (Not Detectd) 09/25/23 09/25/23 Range/Units 13:08 15:20 WBC (3.8-10.6) k/uL RBC (4.30-5.90) m/uL Hgb (13.0-17.5) gm/dL Hct (39.0-53.0) % MCV (80.0-100.0) fL MCH (25.0-35.0) pg MCHC (31.0-37.0) g/dL RDW (11.5-15.5) % Plt Count (150-450) k/uL MPV Neutrophils % % Lymphocytes % % Monocytes % % Eosinophils % % Basophils % % Neutrophils # (1.3-7.7) k/uL Lymphocytes # (1.0-4.8) k/uL Monocytes # (0-1.0) k/uL Eosinophils # (0-0.7) k/uL Basophils # (0-0.2) k/uL PT (10.0-12.5) sec INR (<1.2) APTT (22.0-30.0) sec Sample Site rbrac ABG pH 7.46 H (7.35-7.45) ABG pCO2 49 H (35-45) mmHg ABG pO2 77 L (83-108) mmHg ABG HCO3 35 H (21-25) mmol/L ABG Total CO2 36 H (19-24) mmol/L ABG O2 Saturation 95.6 (94-97) % ABG Base Excess 11.1 mmol/L Wan Test Yes FiO2 28 % Sodium (137-145) mmol/L Potassium (3.5-5.1) mmol/L Chloride (98-107) mmol/L Carbon Dioxide (22-30) mmol/L Anion Gap mmol/L BUN (9-20) mg/dL Creatinine (0.66-1.25) mg/dL Est GFR (CKD-EPI)AfAm (>60 ml/min/1.73 sqM) Est GFR (CKD-EPI)NonAf (>60 ml/min/1.73 sqM) Glucose (74-99) mg/dL POC Glucose (mg/dL) (70-110) mg/dL POC Glu Drawer In Plain [place]oom ID Plasma Lactic Acid Jan (0.7-2.0) mmol/L Calcium (8.4-10.2) mg/dL Total Bilirubin (0.2-1.3) mg/dL AST (17-59) U/L ALT (4-49) U/L Alkaline Phosphatase (38-126) U/L Ammonia (<30) umol/L Troponin I (0.000-0.034) ng/mL Total Protein (6.3-8.2) g/dL Albumin (3.5-5.0) g/dL Vitamin B1 (38-122) ug/L TSH (0.465-4.680) mIU/L Urine Color Yellow Urine Appearance Cloudy (Clear) Urine pH 8.0 (5.0-8.0) Ur Specific [place] 1.012 (1.001-1.035) Urine Protein Negative (Negative) Urine Glucose (UA) Negative (Negative) Urine Ketones Negative (Negative) Urine Blood Negative (Negative) Urine Nitrite Negative (Negative) Urine Bilirubin Negative (Negative) Urine Urobilinogen 2.0 (<2.0) mg/dL Ur Leukocyte Esterase Negative (Negative) Urine RBC 3 (0-5) /hpf Urine WBC 8 H (0-5) /hpf Urine WBC Clumps (None) /hpf Ur Squamous Epith Cells <1 (0-4) /hpf Amorphous Sediment (None) /hpf Urine Bacteria Rare H (None) /hpf Urine Mucus Rare H (None) /hpf Urine Opiates Screen (NotDetected) Ur Oxycodone Screen (NotDetected) Urine Methadone Screen (NotDetected) Ur Propoxyphene Screen (NotDetected) Ur Barbiturates Screen (NotDetected) U Tricyclic Antidepress (NotDetected) Ur Phencyclidine Scrn (NotDetected) Ur Amphetamines Screen (NotDetected) U Methamphetamines Scrn (NotDetected) U Benzodiazepines Scrn (NotDetected) Urine Cocaine Screen (NotDetected) U Marijuana (THC) Screen (NotDetected) Serum Alcohol mg/dL Coronavirus (PCR) (Not Detectd) Influenza Type A (PCR) (Not Detectd) Influenza Type B (PCR) (Not Detectd) RSV (PCR) (Not Detectd) SARS-CoV-2 (PCR) (Not Detectd) Disposition <Viviana Hernandez - Last Filed: 09/20/23 07:10> Is patient prescribed a controlled substance at d/c from ED?: No - Out of Hospital Transfer - Req. Specs Out of Hospital Transfer - Requested Specifics: Other Emergency Center ([facility]) <Luis Alberto Azevedo - Last Filed: 09/25/23 16:31> <Rosaura Rodriguez - Last Filed: 10/07/23 10:47> Clinical Impression: Hallucinations, Failure to thrive, Altered mental state, Weakness, Hyponatremia, UTI (urinary tract infection), Depression, Atrial fibrillation Disposition: OTHER INSTITUTION NOT DEFINED Condition: Serious Referrals: Nonstaff,Physician [Primary Care Provider] - 1-2 days
--- NOTE | 2023-09-19 10:48 | XR ---
EXAMINATION TYPE: XR chest 2V DATE OF EXAM: 09/19/2023 10:42 AM COMPARISON: Chest radiographs from 08/10/2023 TECHNIQUE: XR chest 2V Frontal and lateral views of the chest. CLINICAL INDICATION:Male, 78 years old with history of difficulty breathing; FINDINGS: Lungs/Pleura: There is flattening of the diaphragm with increased lucency of the lungs compatible wit h COPD. No evidence of pneumothorax, pleural effusion or focal consolidation. Chronic senescent paren chymal change. Pulmonary vascularity: Unremarkable. Heart/mediastinum: Cardiomediastinal silhouette is unremarkable. Atherosclerotic calcifications are seen in the aorta. Musculoskeletal: No acute osseous pathology. Findings compatible with DISH. Partial position of lumba r fusion hardware. Remote right-sided fifth rib fracture. IMPRESSION: Chronic changes without evidence for acute process.
[2023-09-19 11:11] LABS: INR 0.9 (<1.2); Partial Thromboplastin Time 23.3 sec (22.0-30.0); Prothrombin Time 10.4 sec (10.0-12.5)
[2023-09-19 14:28] LABS: Appearance,Urine Clear (Clear); Bilirubin,Urine Negative (Negative); Blood,Urine Negative (Negative); Color,Urine Yellow; Glucose,Urine (UA) Negative (Negative); Ketones,Urine Negative (Negative); Leukocyte Esterase,Urine Negative (Negative); Nitrite,Urine Negative (Negative); Protein,Urine Negative (Negative); Urobilinogen,Urine <2.0 mg/dL (<2.0)
[2023-09-19] MEDS ORDERED: SODIUM CHLORIDE 0.9% 500 ML 500 ML IV STA (15:05)
[2023-09-19] MEDS ORDERED: SODIUM CHLORIDE 0.9% 1,000 ML IV STA (15:05)
--- NOTE | 2023-09-19 18:32 | CT ---
EXAMINATION TYPE: CT brain wo con CT DLP: 1667.2 mGycm, Automated exposure control for dose reduction was used. DATE OF EXAM: 09/19/2023 6:09 PM COMPARISON: 08/10/2023. CLINICAL INDICATION:Male, 78 years old with history of Hallucinations, altered mental status, Halluci nations, altered mental status TECHNIQUE: Brain: Axial CT images of the brain were obtained with coronal and sagittal reformats created and rev iewed. Contrast used: None. Oral contrast used: None. FINDINGS: Brain: Extra-axial spaces: No abnormal extra-axial fluid collections. Ventricular system: Within normal limits Cerebral parenchyma: No acute intraparenchymal hemorrhage or mass effect. The aparicio-white junction is well differentiated. Cerebellum: Unremarkable. Mass effect: No evidence of midline shift. Intracranial vasculature: Atherosclerotic calcifications of the intracranial vessels. Soft tissues: Normal. Calvarium/osseous structures: No depressed skull fracture. Paranasal sinuses and mastoid air cells: Mild scattered paranasal sinus disease. Visualized orbits: Orbital contents are intact. IMPRESSION: No acute intracranial process.
[2023-09-19] MEDS ORDERED: ALBUTEROL HFA INHALER INHALATION PRN (19:45)
[2023-09-19] MEDS: PARoxetine 10 MG TAB PO SCH (22:17)
[2023-09-19] MEDS: APIXABAN 5 MG TAB PO SCH (22:17)
[2023-09-19] MEDS: TRIAMCINOLONE 0.1% CREAM 80 GM TUBE TOPICAL SCH (22:17)
[2023-09-19] MEDS: METOPROLOL TARTRATE 12.5 MG TAB PO SCH (22:17)
[2023-09-19] MEDS: MUPIROCIN 2% OINT 22 GM TUBE TOPICAL SCH (22:18)
[2023-09-20 02:38] LABS: Amphetamine Screen,Urine Not Detected (NotDetected); Barbiturate Screen,Urine Not Detected (NotDetected); Benzodiazepines Screen,Urine Not Detected (NotDetected); Cocaine Screen,Urine Not Detected (NotDetected); Methadone Screen, Urine Not Detected (NotDetected); Opiate Screen,Urine Not Detected (NotDetected); Oxycodone Screen, Urine Not Detected (NotDetected); Phencyclidine Screen,Urine Not Detected (NotDetected); Tricyclic Antidepressant,Urine Not Detected (NotDetected); Urn Cannabinoid Scrn Not Detected (NotDetected)
[2023-09-20] MEDS: FERROUS SULFATE 325 MG TAB PO SCH (08:08)
[2023-09-20] MEDS: CHOLECALCIFEROL 25 MCG (1000 IU) TABLET PO SCH (08:08)
[2023-09-20] MEDS: PARoxetine 10 MG TAB PO SCH ×2 (08:09→20:46)
[2023-09-20] MEDS: APIXABAN 5 MG TAB PO SCH ×2 (08:10→20:46)
[2023-09-20] MEDS: METOPROLOL TARTRATE 12.5 MG TAB PO SCH ×2 (08:11→20:46)
[2023-09-20] MEDS: lisinopriL 10 MG TAB PO SCH (08:11)
[2023-09-20] MEDS: PANTOPRAZOLE 40 MG TABLET PO SCH (08:11)
[2023-09-20] MEDS: polyethylene glycoL 3350 17 GM POWD.PACK PO SCH (08:12)
[2023-09-20] MEDS: MUPIROCIN 2% OINT 22 GM TUBE TOPICAL SCH ×2 (08:12→21:35)
[2023-09-20] MEDS: TRIAMCINOLONE 0.1% CREAM 80 GM TUBE TOPICAL SCH ×2 (08:17→21:35)
[2023-09-20] MEDS: buPROPion XL 150 MG TAB.ER.24H PO SCH (08:17)
[2023-09-20] MEDS: OXYBUTYNIN 10 MG TAB.ER.24 PO SCH (08:18)
[2023-09-20] MEDS: SODIUM CHLORIDE TAB 1 GM TAB PO SCH (08:18)
[2023-09-20] MEDS ORDERED: MAG HYDROX/AL HYDROX/SIMETH 30 ML CUP PO STA (16:49)
[2023-09-20] MEDS: IPRATROPIUM-ALBUTEROL 3 ML NEB INHALATION PRN (20:17)
[2023-09-21] MEDS: PANTOPRAZOLE 40 MG TABLET PO SCH (09:19)
[2023-09-21] MEDS: APIXABAN 5 MG TAB PO SCH ×2 (09:19→20:49)
[2023-09-21] MEDS: CHOLECALCIFEROL 25 MCG (1000 IU) TABLET PO SCH (09:19)
[2023-09-21] MEDS: PARoxetine 10 MG TAB PO SCH ×2 (09:19→20:48)
[2023-09-21] MEDS: METOPROLOL TARTRATE 12.5 MG TAB PO SCH ×2 (09:19→20:49)
[2023-09-21] MEDS: FERROUS SULFATE 325 MG TAB PO SCH (09:19)
[2023-09-21] MEDS: polyethylene glycoL 3350 17 GM POWD.PACK PO SCH (09:20)
[2023-09-21] MEDS: OXYBUTYNIN 10 MG TAB.ER.24 PO SCH (10:44)
[2023-09-21] MEDS: SODIUM CHLORIDE TAB 1 GM TAB PO SCH (10:44)
[2023-09-21] MEDS: buPROPion XL 150 MG TAB.ER.24H PO SCH (10:44)
[2023-09-21] MEDS: lisinopriL 10 MG TAB PO SCH (10:48)
[2023-09-21] MEDS: MUPIROCIN 2% OINT 22 GM TUBE TOPICAL SCH ×2 (10:52→21:16)
[2023-09-21] MEDS: TRIAMCINOLONE 0.1% CREAM 80 GM TUBE TOPICAL SCH ×3 (10:52→21:16)
[2023-09-21] MEDS: IPRATROPIUM-ALBUTEROL 3 ML NEB INHALATION PRN (19:46)
[2023-09-22 02:00] LABS: Amorphous Sediment,Urine Few /hpf; Appearance,Urine Turbid (Clear); Bacteria,Urine Occasional /hpf; Bilirubin,Urine Negative (Negative); Blood,Urine Moderate (Negative); Color,Urine Yellow; Glucose,Urine (UA) Negative (Negative); Ketones,Urine Negative (Negative); Leukocyte Esterase,Urine Large (Negative); Mucus,Urine Rare /hpf; Nitrite,Urine Positive (Negative); PH, Urine 8.5 (5.0-8.0); Protein,Urine 1+ (Negative); RBC,Urine 30 /hpf (0-5); Specific Gravity,Urine 1.022 (1.001-1.035); WBC,Urine 53 /hpf (0-5)
[2023-09-22] MEDS: OXYBUTYNIN 10 MG TAB.ER.24 PO SCH (10:04)
[2023-09-22] MEDS: PARoxetine 10 MG TAB PO SCH ×3 (10:05→21:52)
[2023-09-22] MEDS: APIXABAN 5 MG TAB PO SCH ×3 (10:05→21:51)
[2023-09-22] MEDS: lisinopriL 10 MG TAB PO SCH ×2 (10:05→10:08)
[2023-09-22] MEDS: polyethylene glycoL 3350 17 GM POWD.PACK PO SCH ×3 (10:05→10:44)
[2023-09-22] MEDS: METOPROLOL TARTRATE 12.5 MG TAB PO SCH ×3 (10:05→21:51)
[2023-09-22] MEDS: CHOLECALCIFEROL 25 MCG (1000 IU) TABLET PO SCH ×2 (10:06→10:09)
[2023-09-22] MEDS: TRIAMCINOLONE 0.1% CREAM 80 GM TUBE TOPICAL SCH ×2 (10:06→21:52)
[2023-09-22] MEDS: buPROPion XL 150 MG TAB.ER.24H PO SCH ×2 (10:06→10:09)
[2023-09-22] MEDS: FERROUS SULFATE 325 MG TAB PO SCH ×2 (10:06→10:08)
[2023-09-22] MEDS: MUPIROCIN 2% OINT 22 GM TUBE TOPICAL SCH ×2 (10:06→21:53)
[2023-09-22] MEDS: PANTOPRAZOLE 40 MG TABLET PO SCH ×2 (10:06→10:09)
[2023-09-22] MEDS: SODIUM CHLORIDE TAB 1 GM TAB PO SCH (10:43)
[2023-09-22] MEDS ORDERED: CIPROFLOXACIN HCL 500 MG TAB PO STA (17:23)
[2023-09-22] MEDS: IPRATROPIUM-ALBUTEROL 3 ML NEB INHALATION PRN (17:35)
[2023-09-23] MEDS: CIPROFLOXACIN HCL 500 MG TAB PO SCH ×2 (05:19→18:28)
[2023-09-23] MEDS: METOPROLOL TARTRATE 12.5 MG TAB PO SCH ×2 (10:39→23:02)
[2023-09-23] MEDS: PANTOPRAZOLE 40 MG TABLET PO SCH (10:39)
[2023-09-23] MEDS: PARoxetine 10 MG TAB PO SCH ×2 (10:40→23:18)
[2023-09-23] MEDS: FERROUS SULFATE 325 MG TAB PO SCH (10:40)
[2023-09-23] MEDS: buPROPion XL 150 MG TAB.ER.24H PO SCH (10:41)
[2023-09-23] MEDS: lisinopriL 10 MG TAB PO SCH (10:41)
[2023-09-23] MEDS: CHOLECALCIFEROL 25 MCG (1000 IU) TABLET PO SCH (10:41)
[2023-09-23] MEDS: polyethylene glycoL 3350 17 GM POWD.PACK PO SCH ×2 (10:41→12:56)
[2023-09-23] MEDS: APIXABAN 5 MG TAB PO SCH ×2 (10:42→23:02)
[2023-09-23] MEDS: TRIAMCINOLONE 0.1% CREAM 80 GM TUBE TOPICAL SCH ×2 (10:42→23:03)
[2023-09-23] MEDS: MUPIROCIN 2% OINT 22 GM TUBE TOPICAL SCH ×2 (10:42→23:03)
[2023-09-23] MEDS: IPRATROPIUM-ALBUTEROL 3 ML NEB INHALATION PRN ×3 (11:04→20:18)
[2023-09-23] MEDS: SODIUM CHLORIDE TAB 1 GM TAB PO SCH (11:30)
[2023-09-23 12:26] LABS: Basophils % (A) 0 %; Eosinophils # (A) 0.1 k/uL (0-0.7); Eosinophils % (A) 2 %; HCT 33.3 % (39.0-53.0); HGB 11.6 gm/dL (13.0-17.5); Lymphocytes # (A) 0.6 k/uL (1.0-4.8); Lymphocytes % (A) 15 %; MCH 31.6 pg (25.0-35.0); MCHC 34.8 g/dL (31.0-37.0); MCV 90.7 fL (80.0-100.0); Mean Platelet Volume 7.4; Monocytes # (A) 0.4 k/uL (0-1.0); Monocytes % (A) 10 %; Neutrophils # (A) 2.8 k/uL (1.3-7.7); Neutrophils % (A) 71 %; Platelet Count 287 k/uL (150-450); RBC 3.67 m/uL (4.30-5.90); RDW 13.8 % (11.5-15.5)
[2023-09-23 12:56] LABS: ALT 16 U/L (4-49); AST 25 U/L (17-59); African American GFR (CKD) >90 (>60 ml/min/1.73 sqM); Albumin 3.2 g/dL (3.5-5.0); Alkaline Phosphatase 83 U/L (38-126); Anion Gap 5 mmol/L; Blood Urea Nitrogen 13 mg/dL (9-20); Calcium 8.5 mg/dL (8.4-10.2); Carbon Dioxide 37 mmol/L (22-30); Chloride 85 mmol/L (98-107); Glucose 60 mg/dL (74-99); Non-African American GFR(CKD) >90 (>60 ml/min/1.73 sqM); Potassium 3.8 mmol/L (3.5-5.1); Sodium 127 mmol/L (137-145); Total Bilirubin 0.4 mg/dL (0.2-1.3); Total Protein 5.9 g/dL (6.3-8.2)
[2023-09-23] MEDS: OXYBUTYNIN 10 MG TAB.ER.24 PO SCH (13:21)
[2023-09-24] MEDS: CIPROFLOXACIN HCL 500 MG TAB PO SCH ×2 (06:18→17:51)
[2023-09-24] MEDS: IPRATROPIUM-ALBUTEROL 3 ML NEB INHALATION PRN ×4 (07:34→21:09)
[2023-09-24] MEDS ORDERED: IPRATROPIUM-ALBUTEROL 3 ML NEB ONE (07:49)
[2023-09-24] MEDS: PARoxetine 10 MG TAB PO SCH ×2 (08:31→21:05)
[2023-09-24] MEDS: polyethylene glycoL 3350 17 GM POWD.PACK PO SCH (08:31)
[2023-09-24] MEDS: FERROUS SULFATE 325 MG TAB PO SCH (08:31)
[2023-09-24] MEDS: buPROPion XL 150 MG TAB.ER.24H PO SCH (08:31)
[2023-09-24] MEDS: METOPROLOL TARTRATE 12.5 MG TAB PO SCH ×2 (08:31→21:05)
[2023-09-24] MEDS: lisinopriL 10 MG TAB PO SCH (08:32)
[2023-09-24] MEDS: APIXABAN 5 MG TAB PO SCH ×2 (08:32→21:05)
[2023-09-24] MEDS: CHOLECALCIFEROL 25 MCG (1000 IU) TABLET PO SCH (08:32)
[2023-09-24] MEDS: PANTOPRAZOLE 40 MG TABLET PO SCH (08:32)
[2023-09-24] MEDS: SODIUM CHLORIDE TAB 1 GM TAB PO SCH (10:43)
[2023-09-24] MEDS: OXYBUTYNIN 10 MG TAB.ER.24 PO SCH (10:43)
[2023-09-24] MEDS: MUPIROCIN 2% OINT 22 GM TUBE TOPICAL SCH ×2 (10:44→23:15)
[2023-09-24] MEDS: TRIAMCINOLONE 0.1% CREAM 80 GM TUBE TOPICAL SCH ×2 (10:45→23:15)
[2023-09-24 16:40] LABS: African American GFR (CKD) >90 (>60 ml/min/1.73 sqM); Anion Gap 6 mmol/L; Blood Urea Nitrogen 11 mg/dL (9-20); Calcium 8.5 mg/dL (8.4-10.2); Carbon Dioxide 34 mmol/L (22-30); Chloride 85 mmol/L (98-107); Glucose 100 mg/dL (74-99); Non-African American GFR(CKD) >90 (>60 ml/min/1.73 sqM); Sodium 125 mmol/L (137-145)
[2023-09-24 22:46] LABS: Appearance,Urine Clear (Clear); Bilirubin,Urine Negative (Negative); Blood,Urine Negative (Negative); Color,Urine Yellow; Glucose,Urine (UA) Negative (Negative); Ketones,Urine Negative (Negative); Leukocyte Esterase,Urine Negative (Negative); Nitrite,Urine Negative (Negative); Protein,Urine Negative (Negative); Specific Gravity,Urine 1.015 (1.001-1.035); Urobilinogen,Urine 0.2 mg/dL (<2.0)
[2023-09-25] MEDS ORDERED: LORazepam 1 MG TAB PO STA (04:03)
[2023-09-25] MEDS: CIPROFLOXACIN HCL 500 MG TAB PO SCH (06:15)
[2023-09-25] MEDS: PANTOPRAZOLE 40 MG TABLET PO SCH (06:52)
[2023-09-25] MEDS ORDERED: cloNIDine HCL 0.1 MG TAB PO STA (06:57)
[2023-09-25] MEDS: IPRATROPIUM-ALBUTEROL 3 ML NEB INHALATION PRN ×3 (07:53→16:00)
[2023-09-25 07:55] VITALS: TEMP 98.3
[2023-09-25] MEDS: buPROPion XL 150 MG TAB.ER.24H PO SCH ×2 (08:57→09:00)
[2023-09-25] MEDS ORDERED: FERROUS SULFATE 325 MG TAB PO SCH (09:00)
[2023-09-25] MEDS ORDERED: APIXABAN 5 MG TAB PO SCH (09:00)
[2023-09-25] MEDS ORDERED: lisinopriL 10 MG TAB PO SCH (09:00)
[2023-09-25] MEDS ORDERED: PARoxetine 10 MG TAB PO SCH (09:00)
[2023-09-25] MEDS ORDERED: METOPROLOL TARTRATE 12.5 MG TAB PO SCH (09:00)
[2023-09-25] MEDS ORDERED: polyethylene glycoL 3350 17 GM POWD.PACK PO SCH (09:00)
[2023-09-25] MEDS ORDERED: CHOLECALCIFEROL 25 MCG (1000 IU) TABLET PO SCH (09:00)
[2023-09-25] MEDS: MUPIROCIN 2% OINT 22 GM TUBE TOPICAL SCH (09:38)
[2023-09-25] MEDS: OXYBUTYNIN 10 MG TAB.ER.24 PO SCH (09:39)
[2023-09-25] MEDS: TRIAMCINOLONE 0.1% CREAM 80 GM TUBE TOPICAL SCH (09:39)
[2023-09-25] MEDS: SODIUM CHLORIDE TAB 1 GM TAB PO SCH (12:34)
[2023-09-25 12:55] LABS: Glucose,Whole Blood 127 mg/dL (70-110)
[2023-09-25 13:06] LABS: Basophils % (A) 0 %; Eosinophils % (A) 0 %; HCT 31.9 % (39.0-53.0); HGB 11.3 gm/dL (13.0-17.5); Lymphocytes # (A) 0.5 k/uL (1.0-4.8); Lymphocytes % (A) 8 %; MCH 31.6 pg (25.0-35.0); MCHC 35.3 g/dL (31.0-37.0); MCV 89.6 fL (80.0-100.0); Mean Platelet Volume 7.1; Monocytes # (A) 0.3 k/uL (0-1.0); Monocytes % (A) 6 %; Neutrophils # (A) 4.5 k/uL (1.3-7.7); Neutrophils % (A) 84 %; Platelet Count 283 k/uL (150-450); RBC 3.56 m/uL (4.30-5.90); RDW 13.9 % (11.5-15.5); WBC 5.4 k/uL (3.8-10.6)
[2023-09-25 13:11] LABS: ABG Base Excess 11.1 mmol/L; ABG HCO3 35 mmol/L (21-25); ABG Oxygen Saturation 95.6 % (94-97); ABG PCO2 49 mmHg (35-45); ABG PH 7.46 (7.35-7.45); ABG PO2 77 mmHg (83-108); ABG TCO2 36 mmol/L (19-24); Allen Test Performed? Yes
[2023-09-25 13:27] LABS: ALT 18 U/L (4-49); AST 33 U/L (17-59); African American GFR (CKD) >90 (>60 ml/min/1.73 sqM); Albumin 3.3 g/dL (3.5-5.0); Alkaline Phosphatase 79 U/L (38-126); Anion Gap 6 mmol/L; Blood Urea Nitrogen 11 mg/dL (9-20); Calcium 8.9 mg/dL (8.4-10.2); Carbon Dioxide 32 mmol/L (22-30); Chloride 85 mmol/L (98-107); Glucose 115 mg/dL (74-99); Non-African American GFR(CKD) >90 (>60 ml/min/1.73 sqM); Potassium 4.3 mmol/L (3.5-5.1); Sodium 123 mmol/L (137-145); Total Bilirubin 0.8 mg/dL (0.2-1.3); Total Protein 6.1 g/dL (6.3-8.2)
--- NOTE | 2023-09-25 13:35 | CT ---
EXAMINATION TYPE: CT brain wo con CT DLP: 1232.4 mGycm, Automated exposure control for dose reduction was used. DATE OF EXAM: 09/25/2023 1:25 PM COMPARISON: Prior CT Brain from 09/19/2023. CLINICAL INDICATION:Male, 78 years old with history of Altered mental status, Altered mental status TECHNIQUE: Brain: Multiple axial CT images of the brain were obtained without IV contrast. Coronal sagittal refo rmats reviewed. FINDINGS: Brain: Extra-axial spaces: No abnormal extra-axial fluid collections. Ventricular system: Within normal limits Cerebral parenchyma: Cerebral atrophy. No mass effect. There is trace hyperdensity along the bilatera l anterior frontal lobe parenchyma best appreciated on the sagittal views. The aparicio-white junction is well differentiated. Scattered hypoattenuating areas are seen within the white matter. Cerebellum: Unremarkable. Mass effect: No evidence of midline shift. Intracranial vasculature: Atherosclerotic calcifications of the intracranial vessels. Soft tissues: Normal. Calvarium/osseous structures: No depressed skull fracture. Paranasal sinuses and mastoid air cells: Clear Visualized orbits: Orbital contents are intact. IMPRESSION: 1. Small acute bilateral frontal lobe contusions. 2. Nonspecific white matter changes likely due to small vessel ischemic disease.
--- NOTE | 2023-09-25 14:48 | XR ---
EXAMINATION TYPE: XR chest 1V portable DATE OF EXAM: 09/25/2023 COMPARISON: NONE HISTORY: Altered mental status TECHNIQUE: Single frontal view of the chest is obtained. FINDINGS: There is no focal air space opacity, pleural effusion, or pneumothorax seen. The cardiac silhouette size is within normal limits. Diffuse osteopenia with arthropathy of the shoulders. Athero sclerotic change aorta. Hypertrophic and degenerative change spine. Postsurgical change near the thor acolumbar junction. Diffuse emphysematous changes. Chronic rib deformities compatible with prior trau ma. IMPRESSION: 1. No acute process. 2. Diffuse emphysematous changes.
[2023-09-25] MEDS ORDERED: SODIUM CHLORIDE 0.9% 500 ML 500 ML IV ONE (15:04)
[2023-09-25] MEDS ORDERED: SODIUM CHLORIDE 0.9% 1,000 ML IV SCH (15:15)
[2023-09-25 16:11] LABS: Partial Thromboplastin Time 29.8 sec (22.0-30.0); Prothrombin Time 11.1 sec (10.0-12.5)
[2023-09-25 16:30] LABS: Appearance,Urine Cloudy (Clear); Bacteria,Urine Rare /hpf; Bilirubin,Urine Negative (Negative); Blood,Urine Negative (Negative); Color,Urine Yellow; Glucose,Urine (UA) Negative (Negative); Ketones,Urine Negative (Negative); Leukocyte Esterase,Urine Negative (Negative); Mucus,Urine Rare /hpf; Nitrite,Urine Negative (Negative); Protein,Urine Negative (Negative); RBC,Urine 3 /hpf (0-5); Specific Gravity,Urine 1.012 (1.001-1.035); Squamous Epithelial Cell,Urine <1 /hpf (0-4); WBC,Urine 8 /hpf (0-5)
[2023-09-25] MEDS ORDERED: CIPROFLOXACIN HCL 500 MG TAB PO SCH (17:00)
[2023-09-25 17:32] VITALS: RESP 17
[2023-09-25 21:30] VITALS: BP 111/62; PULSE 70
[2023-09-26] MEDS ORDERED: PANTOPRAZOLE 40 MG TABLET PO SCH (07:30)
== END 2023-09-25 21:09 | disposition other institution (70) ==
LOC: EC 09:56
DX: N39.0 Urinary tract infection, site not specified (principal); R62.7 Adult failure to thrive; I48.91 Unspecified atrial fibrillation; F32.A Depression, unspecified; R44.3 Hallucinations, unspecified; R41.82 Altered mental status, unspecified; E87.1 Hypo-osmolality and hyponatremia; I10 Essential (primary) hypertension; J44.9 Chronic obstructive pulmonary disease, unspecified; K21.9 Gastro-esophageal reflux disease without esophagitis; M19.90 Unspecified osteoarthritis, unspecified site; F41.9 Anxiety disorder, unspecified; E11.9 Type 2 diabetes mellitus without complications; Z79.899 Other long term (current) drug therapy; Z87.891 Personal history of nicotine dependence; Z88.2 Allergy status to sulfonamides; Z88.8 Allergy status to other drugs, medicaments and biological substances; Z20.822 Contact with and (suspected) exposure to COVID-19
CPT/HCPCS: 36415; 36600; 51702; 70450; 71045; 71046; 80053; 80306; 80320; 81001; 81003; 82075; 82140; 82805; 83605; 84425; 84484; 85025; 85610; 85730; 87636; 93005; 96360; 96361; 99285

== ENCOUNTER 2023-11-07 22:15 | Emergency (ER) | payer MEDICARE, OTHER ==
[2023-11-07 22:34] VITALS: RESP 18; TEMP 97.4
--- NOTE | 2023-11-07 23:35 | CT ---
EXAM: CT Head Without Intravenous Contrast CLINICAL HISTORY: ITS.REASON CT Reason: fall, head injury, on thinners TECHNIQUE: Axial computed tomography images of the head/brain without intravenous contrast. CTDI is 45.2 mGy and DLP is 1044 mGy-cm. This CT exam was performed using one or more of the following dose reduction techniques: automated exposure control, adjustment of the mA and/or kV according to patient size, and/or use of iterative reconstruction technique. COMPARISON: No relevant prior studies available. FINDINGS: No acute intracranial hemorrhage. No midline shift or mass effect. The territorial aparicio-white matter differentiation is maintained throughout. Age-related cerebral volume loss. Periventricular and subcortical white matter hypoattenuation, consistent with chronic microangiopathy. The visualized orbits appear grossly unremarkable. The calvarium is intact. The visualized paranasal sinuses and mastoid air cells are grossly clear. IMPRESSION: No acute intracranial hemorrhage, midline shift, or mass effect. EXAM: CT Cervical Spine Without Intravenous Contrast CLINICAL HISTORY: ITS.REASON CT Reason: fall, head injury, on thinners TECHNIQUE: Axial computed tomography images of the cervical spine without intravenous contrast. CTDI is 5.9 mGy and DLP is 180.1 mGy-cm. This CT exam was performed using one or more of the following dose reduction techniques: automated exposure control, adjustment of the mA and/or kV according to patient size, and/or use of iterative reconstruction technique. COMPARISON: No relevant prior studies available. FINDINGS: The vertebral body heights are maintained. The craniocervical junction is intact. The atlanto-dens interval is maintained. The dens is intact. There is no spondylolisthesis. Multilevel cervical spondylosis and degenerative disc disease. Straightening of the cervical lordosis. The unenhanced neck soft tissues are grossly unremarkable. The visualized lung apices are grossly clear. IMPRESSION: No acute fracture or subluxation of the cervical spine.
--- NOTE | 2023-11-07 23:51 | ED ---
Fall HPI - General Chief Complaint: Fall Stated Complaint: Fall Source: patient, EMS Mode of arrival: EMS - History of Present Illness Initial Comments: 78-year-old male presents to the emergency department as a transfer from [facility] facility. He was using his walker to ambulate when he accidentally fell and hit his head on the ground. Incident happened around 8 PM. He does take Eliquis. He denies losing consciousness. No confusion. No headaches. Denies any numbness, tingling or weakness in his extremities. No neck or back pain. Due to patient's head injury on anticoagulation it was protocol for the patient to be transferred to our facility for evaluation. He denies any chest pain or shortness of breath. No other alleviating, precipitating or modifying factors - Related Data Home Medications Medication Instructions Recorded Confirmed Metoprolol Tartrate [Lopressor] 12.5 mg PO BID 01/16/17 09/19/23 Ipratropium-Albuterol Nebulize 3 ml INHALATION RT-Q6H 10/16/17 09/19/23 [Duoneb 0.5 mg-3 mg/3 ml Soln] Albuterol Inhaler [Ventolin Hfa 2 puff INHALATION RT-Q4H PRN 03/22/22 09/19/23 Inhaler] Apixaban [Eliquis] 5 mg PO Q12HR 03/22/22 09/19/23 PARoxetine HCL [Paxil] 30 mg PO BID 03/22/22 09/19/23 Tolterodine Tartrate [Detrol LA] 4 mg PO DAILY 03/22/22 09/19/23 Cholecalciferol [Vitamin D3 (25 25 mcg PO DAILY 09/19/23 09/19/23 Mcg = 1000 Iu)] Ferrous Sulfate [Iron (65 MG 325 mg PO DAILY 09/19/23 09/19/23 Elemental)] Mupirocin 2% Oint [Bactroban 2% 1 applic TOPICAL BID 09/19/23 09/19/23 Oint] Pantoprazole Sodium [Protonix] 20 mg PO DAILY 09/19/23 09/19/23 Triamcinolone 0.1% Cream [Kenalog 1 applicatio TOPICAL BID 09/19/23 09/19/23 0.1% Cream] buPROPion XL [Wellbutrin XL] 150 mg PO DAILY 09/19/23 09/19/23 lisinopriL [Zestril] 10 mg PO DAILY 09/19/23 09/19/23 polyethylene glycoL 3350 [Miralax] 17 gm PO DAILY 09/19/23 09/19/23 Previous Rx's Medication Instructions Recorded Sodium Chloride Tab 1 gm PO DAILY #60 tablet 07/21/23 Allergies Allergy/AdvReac Type Severity Reaction Status Date / Time olanzapine Allergy Unknown Verified 11/07/23 22:21 Sulfa (Sulfonamide Allergy BLOOD IN Verified 11/07/23 22:21 Antibiotics) URINE A CHILD Review of Systems ROS Statement: Those systems with pertinent positive or pertinent negative responses have been documented in the HPI. ROS Other: All systems not noted in ROS Statement are negative. Past Medical History Past Medical History: Atrial Fibrillation, Atrial Flutter, COPD, GERD/Reflux, Hypertension, Osteoarthritis (OA), Pneumonia, Prostate Disorder Additional Past Medical History / Comment(s): BPH, tinnitis, Type 2 diabetes- diet controlled, DJD, oxygen at 3 liters prn., states some numbness right foot & right leg slightly weaker from hx of pinched nerves in back., urine leakage- wears depends. emmanuelle legs from knee down with rash, told was from bp being too high, when presses on lower legs leaves a dent.has compression sock coming [facility] aware of lower leg issues History of Any Multi-Drug Resistant Organisms: None Reported Past Surgical History: Back Surgery, Joint Replacement Additional Past Surgical History / Comment(s): back surgery with spinal fusion (2010)., EGD/colonoscopy, ant TRH 04/09/22 Past Anesthesia/Blood Transfusion Reactions: No Reported Reaction Past Psychological History: Anxiety, Bipolar Smoking Status: Former smoker Past Alcohol Use History: Occasional Past Drug Use History: None Reported - Past Family History Mother Family Medical History: Congestive Heart Failure (CHF) Additional Family Medical History / Comment(s): 4 uncles passed with [place] Sister(s) Family Medical History: Congestive Heart Failure (CHF) Additional Family Medical History / Comment(s): 1 sister from CHF Father Family Medical History: Cancer Additional Family Medical History / Comment(s): of sepsis after lung surgery for suspected cancer General Exam Limitations: no limitations General appearance: alert, in no apparent distress Head exam: Present: atraumatic, normocephalic, normal inspection Eye exam: Present: normal appearance, PERRL, EOMI. Absent: scleral icterus, conjunctival injection, periorbital swelling ENT exam: Present: normal exam, mucous membranes moist Neck exam: Present: normal inspection. Absent: tenderness, meningismus, lymphadenopathy Respiratory exam: Present: normal lung sounds bilaterally. Absent: respiratory distress, wheezes, rales, rhonchi, stridor Cardiovascular Exam: Present: regular rate, normal rhythm, normal heart sounds. Absent: systolic murmur, diastolic murmur, rubs, gallop, clicks GI/Abdominal exam: Present: soft, normal bowel sounds. Absent: distended, tenderness, guarding, rebound, rigid Extremities exam: Present: normal inspection, full ROM, normal capillary refill. Absent: tenderness, pedal edema, joint swelling, calf tenderness Back exam: Present: normal inspection Neurological exam: Present: alert, oriented X3, CN II-XII intact Psychiatric exam: Present: normal affect, normal mood Skin exam: Present: warm, dry, intact, normal color. Absent: rash Course Vital Signs 11/07/23 11/07/23 11/08/23 22:18 23:20 00:20 Temperature 97.4 F L Pulse Rate 66 67 57 L Respiratory 18 18 18 Rate Blood Pressure 151/85 156/103 152/70 O2 Sat by Pulse 100 100 100 Oximetry 11/08/23 01:20 Temperature Pulse Rate 72 Respiratory 18 Rate Blood Pressure 158/90 O2 Sat by Pulse 100 Oximetry Medical Decision Making - Medical Decision Making Was pt. sent in by a medical professional or institution (, PA, POLITICAL REPORTER, urgent care, hospital, or custodial...) When possible be specific @ -[facility] facility Did you speak to anyone other than the patient for history (EMS, parent, family, police, friend...)? What history was obtained from this source @ -EMS Did you review nursing and triage notes (agree or disagree)? Why? @ -I reviewed and agree with nursing and triage notes Were old charts reviewed (outside hosp., previous admission, EMS record, old EKG, old radiological studies, urgent care reports/EKG's, custodial records)? Report findings @ -No old charts were reviewed Differential Diagnosis (chest pain, altered mental status, abdominal pain women, abdominal pain men, vaginal bleeding, weakness, fever, dyspnea, syncope, headache, dizziness, GI bleed, back pain, seizure, CVA, palpatations, mental health, musculoskeletal)? @ -Subarachnoid hemorrhage, subdural hemorrhage, epidural, skull fracture EKG interpreted by me (3pts min.). @ -Not done X-rays interpreted by me (1pt min.). @ -None done CT interpreted by me (1pt min.). @ -Yes and demonstrates no acute intracranial process U/S interpreted by me (1pt. min.). @ -None done What testing was considered but not performed or refused? (CT, X-rays, U/S, labs)? Why? @ -None What meds were considered but not given or refused? Why? @ -None Did you discuss the management of the patient with other professionals (professionals i.e. , PA, POLITICAL REPORTER, lab, RT, psych nurse, clinical social work therapist, foot setter, teacher, property utilization officer, case finisher)? Give summary @ -No Was smoking cessation discussed for >3mins.? @ -No Was critical care preformed (if so, how long)? @ -No Were there social determinants of health that impacted care today? How? (Homelessness, low income, unemployed, alcoholism, drug addiction, transportation, low edu. Level, literacy, decrease access to med. care, skilled nursing, rehab)? @ -No Was there de-escalation of care discussed even if they declined (Discuss DNR or withdrawal of care, Hospice)? DNR status @ -No What co-morbidities impacted this encounter? (DM, HTN, Smoking, COPD, CAD, Cancer, CVA, ARF, Chemo, Hep., AIDS, mental health diagnosis, sleep apnea, morbid obesity)? @ -Gait difficulty with walker use Was patient admitted / discharged? Hospital course, mention meds given and route, prescriptions, significant lab abnormalities, going to OR and other pertinent info. @ -Upon arrival patient was placed into room 2. A thorough history and physical exam was performed. Patient does go for CT of his head and cervical spine. No acute intracranial process. No cervical fractures. Results are discussed with patient. He is stable for discharge back to his ECF at this time. Patient was agreeable to this plan and he was discharged in stable condition Undiagnosed new problem with uncertain prognosis? @ -No Drug Therapy requiring intensive monitoring for toxicity (Heparin, Nitro, Insulin, Cardizem)? @ -No Were any procedures done? @ -No Diagnosis/symptom? @ -acute fall, acute blunt head trauma Acute, or Chronic, or Acute on Chronic? @ -Acute Uncomplicated (without systemic symptoms) or Complicated (systemic symptoms)? @ -Complicated Side effects of treatment? @ -No Exacerbation, Progression, or Severe Exacerbation? @ -No Poses a threat to life or bodily function? How? (Chest pain, [place], [place], pneumonia, PE, COPD, DKA, ARF, appy, cholecystitis, CVA, Diverticulitis, Homicidal, Suicid al, threat to staff... and all critical care pts) @ -No Disposition Clinical Impression: Fall, Blunt head trauma, Anticoagulant long-term use Disposition: HOME SELF-CARE Condition: Stable Instructions (If sedation given, give patient instructions): Fall Prevention (ED) Additional Instructions: Your computed tomography scan was negative. Please follow-up with your primary care doctor and return for any new or worsening symptoms Is patient prescribed a controlled substance at d/c from ED?: No Referrals: Tim Uriostegui DO [Primary Care Provider] - 1-2 days Time of Disposition: 23:50
[2023-11-08 02:23] VITALS: BP 158/90; PULSE 72
== END 2023-11-08 01:50 | disposition home or self-care (01) ==
LOC: EC 22:15
DX: S09.90XA Unspecified injury of head, initial encounter (principal); E11.9 Type 2 diabetes mellitus without complications; I10 Essential (primary) hypertension; I48.91 Unspecified atrial fibrillation; J44.9 Chronic obstructive pulmonary disease, unspecified; K21.9 Gastro-esophageal reflux disease without esophagitis; M19.90 Unspecified osteoarthritis, unspecified site; F41.9 Anxiety disorder, unspecified; F31.9 Bipolar disorder, unspecified; Z79.01 Long term (current) use of anticoagulants; Z79.899 Other long term (current) drug therapy; Z87.891 Personal history of nicotine dependence; Z88.2 Allergy status to sulfonamides; Z88.8 Allergy status to other drugs, medicaments and biological substances; V00.181A Fall from other rolling-type pedestrian conveyance, initial encounter
CPT/HCPCS: 70450; 72125; 99284

== ENCOUNTER 2023-12-23 04:39 | Emergency (ER) | payer MEDICARE, OTHER ==
[2023-12-23 05:04] VITALS: BP 154/83; PULSE 63; RESP 18; TEMP 97.9
--- NOTE | 2023-12-23 05:18 | ED ---
Fall HPI - General Chief Complaint: Fall Stated Complaint: Fall Time Seen by Provider: 12/23/23 04:45 Source: EMS Mode of arrival: EMS - History of Present Illness Initial Comments: Emiliano is a pleasant 78-year-old gentleman who is brought to the ER today by ambulance after a fall at his fdc. Patient rolled out of bed he struck his head on the nightstand. He did not lose consciousness he did not have any other injuries. Patient complains however due to protocol he was sent here for evaluation. Patient does take Eliquis - Related Data Home Medications Medication Instructions Recorded Confirmed Metoprolol Tartrate [Lopressor] 12.5 mg PO BID 01/16/17 09/19/23 Ipratropium-Albuterol Nebulize 3 ml INHALATION RT-Q6H 10/16/17 09/19/23 [Duoneb 0.5 mg-3 mg/3 ml Soln] Albuterol Inhaler [Ventolin Hfa 2 puff INHALATION RT-Q4H PRN 03/22/22 09/19/23 Inhaler] Apixaban [Eliquis] 5 mg PO Q12HR 03/22/22 09/19/23 PARoxetine HCL [Paxil] 30 mg PO BID 03/22/22 09/19/23 Tolterodine Tartrate [Detrol LA] 4 mg PO DAILY 03/22/22 09/19/23 Cholecalciferol [Vitamin D3 (25 25 mcg PO DAILY 09/19/23 09/19/23 Mcg = 1000 Iu)] Ferrous Sulfate [Iron (65 MG 325 mg PO DAILY 09/19/23 09/19/23 Elemental)] Mupirocin 2% Oint [Bactroban 2% 1 applic TOPICAL BID 09/19/23 09/19/23 Oint] Pantoprazole Sodium [Protonix] 20 mg PO DAILY 09/19/23 09/19/23 Triamcinolone 0.1% Cream [Kenalog 1 applicatio TOPICAL BID 09/19/23 09/19/23 0.1% Cream] buPROPion XL [Wellbutrin XL] 150 mg PO DAILY 09/19/23 09/19/23 lisinopriL [Zestril] 10 mg PO DAILY 09/19/23 09/19/23 polyethylene glycoL 3350 [Miralax] 17 gm PO DAILY 09/19/23 09/19/23 Previous Rx's Medication Instructions Recorded Sodium Chloride Tab 1 gm PO DAILY #60 tablet 07/21/23 Allergies Allergy/AdvReac Type Severity Reaction Status Date / Time olanzapine Allergy Unknown Verified 12/23/23 04:46 Sulfa (Sulfonamide Allergy BLOOD IN Verified 12/23/23 04:46 Antibiotics) URINE A CHILD Review of Systems ROS Statement: Those systems with pertinent positive or pertinent negative responses have been documented in the HPI. ROS Other: All systems not noted in ROS Statement are negative. Past Medical History Past Medical History: Atrial Fibrillation, Atrial Flutter, COPD, GERD/Reflux, Hypertension, Osteoarthritis (OA), Pneumonia, Prostate Disorder Additional Past Medical History / Comment(s): BPH, tinnitis, Type 2 diabetes- diet controlled, DJD, oxygen at 3 liters prn., states some numbness right foot & right leg slightly weaker from hx of pinched nerves in back., urine leakage- wears depends. emmanuelle legs from knee down with rash, told was from bp being too high, when presses on lower legs leaves a dent.has compression sock coming [facility] aware of lower leg issues History of Any Multi-Drug Resistant Organisms: None Reported Past Surgical History: Back Surgery, Joint Replacement Additional Past Surgical History / Comment(s): back surgery with spinal fusion (2010)., EGD/colonoscopy, ant TRH 04/09/22 Past Anesthesia/Blood Transfusion Reactions: No Reported Reaction Past Psychological History: Anxiety, Bipolar Smoking Status: Former smoker Past Alcohol Use History: Occasional Past Drug Use History: None Reported - Past Family History Mother Family Medical History: Congestive Heart Failure (CHF) Additional Family Medical History / Comment(s): 4 uncles passed with [place] Sister(s) Family Medical History: Congestive Heart Failure (CHF) Additional Family Medical History / Comment(s): 1 sister from CHF Father Family Medical History: Cancer Additional Family Medical History / Comment(s): of sepsis after lung surgery for suspected cancer General Exam Limitations: no limitations General appearance: alert, in no apparent distress Head exam: Present: atraumatic, normocephalic Eye exam: Present: PERRL ENT exam: Present: normal exam Respiratory exam: Absent: respiratory distress Cardiovascular Exam: Present: regular rate GI/Abdominal exam: Present: soft. Absent: distended Rectal exam: Present: deferred Neurological exam: Present: alert Psychiatric exam: Present: normal affect, normal mood Skin exam: Present: warm, dry, intact Course Vital Signs 12/23/23 04:43 Temperature 97.9 F Pulse Rate 63 Respiratory 18 Rate Blood Pressure 154/83 O2 Sat by Pulse 98 Oximetry Medical Decision Making - Medical Decision Making Was pt. sent in by a medical professional or institution (PRERNA Bennett, GEAR TOOTH GRINDING MACHINE OPERATOR, urgent care, hospital, or fdc...) When possible be specific @ -Sent from fdc Did you speak to anyone other than the patient for history (EMS, parent, family, police, friend...)? What history was obtained from this source @ -No Did you review nursing and triage notes (agree or disagree)? Why? @ -I reviewed and agree with nursing and triage notes Were old charts reviewed (outside hosp., previous admission, EMS record, old EKG, old radiological studies, urgent care reports/EKG's, fdc records)? Report findings @ -No old charts were reviewed Differential Diagnosis (chest pain, altered mental status, abdominal pain women, abdominal pain men, vaginal bleeding, weakness, fever, dyspnea, syncope, headache, dizziness, GI bleed, back pain, seizure, CVA, palpatations, mental health)? @ -not applicable EKG interpreted by me (3pts min.). @ -As above X-rays interpreted by me (1pt min.). @ -None done CT interpreted by me (1pt min.). @CT interpreted by me as no acute intracranial process, no obvious fractures or step-offs of the cervical spine U/S interpreted by me (1pt. min.). @ -None done What testing was considered but not performed or refused? (CT, X-rays, U/S, labs)? Why? @ -None What meds were considered but not given or refused? Why? @ -None Did you discuss the management of the patient with other professionals (professionals i.e. PRERNA Bennett, GEAR TOOTH GRINDING MACHINE OPERATOR, lab, RT, psych nurse, social service technician, ice cream machine operator, teacher, retirement officer, porter sample case)? Give summary @ -No Was smoking cessation discussed for >3mins.? @ -No Was critical care preformed (if so, how long)? @ -No Were there social determinants of health that impacted care today? How? (Homelessness, low income, unemployed, alcoholism, drug addiction, transportation, low edu. Level, literacy, decrease access to med. care, senior living, rehab)? @ -No Was there de-escalation of care discussed even if they declined (Discuss DNR or withdrawal of care, Hospice)? DNR status @ -No What co-morbidities impacted this encounter? (DM, HTN, Smoking, COPD, CAD, Cancer, CVA, ARF, Chemo, Hep., AIDS, mental health diagnosis, sleep apnea, morbid obesity)? @ -None Was patient admitted / discharged? Hospital course, mention meds given and route, prescriptions, significant lab abnormalities, going to OR and other pertinent info. @ Discharge Undiagnosed new problem with uncertain prognosis? @ -No Drug Therapy requiring intensive monitoring for toxicity (Heparin, Nitro, Insulin, Cardizem)? @ -No Were any procedures done? @ -No Diagnosis/symptom? @ -Fall at fdc Acute, or Chronic, or Acute on Chronic? @ -default Uncomplicated (without systemic symptoms) or Complicated (systemic symptoms)? @ -default Side effects of treatment? @ -No Exacerbation, Progression, or Severe Exacerbation? @ -No Poses a threat to life or bodily function? How? (Chest pain, [place], [place], pneumonia, PE, COPD, DKA, ARF, appy, cholecystitis, CVA, Diverticulitis, Homicidal, Suicidal, threat to staff... and all critical care pts) @ -No Disposition Clinical Impression: Fall Disposition: HOME SELF-CARE Condition: Stable Is patient prescribed a controlled substance at d/c from ED?: No Referrals: Tim Uriostegui DO [Primary Care Provider] - 1-2 days
--- NOTE | 2023-12-23 07:26 | CT ---
EXAMINATION TYPE: CT brain esperanza mascorro DATE OF EXAM: 12/23/2023 COMPARISON: 11/07/2023 HISTORY: fall CT DLP: 1376.[address] of the brain was performed. The ventricles, basal cisterns and sulci overlying the cerebral convexities demonstrate mildly enlarg ement. There is no evidence for intracranial hemorrhage or sulcal effacement. There is decreased attenuatio n about the periventricular white matter and deep white matter of both cerebral hemispheres, compatib le with chronic small vessel ischemia. No mass effects are seen. If symptoms persist consider MRI. Osseous calvarium is intact. IMPRESSION: 1. Age related atrophic and chronic small vessel ischemic change without acute intracranial process seen at this time. CT Cervical Spine: Unenhanced CT of the cervical spine was performed with bone and soft tissue window settings submitted . Coronal and sagittal reconstruction is obtained. There is normal alignment and prevertebral soft tissues. No evidence for acute cervical fracture . Scattered degenerative disc disease and spondylosis. Biapical scarring. IMPRESSION: 1. No evidence for acute fracture or subluxation of the cervical spine.
== END 2023-12-23 07:51 | disposition home or self-care (01) ==
LOC: EC 04:39
DX: Z04.3 Encounter for examination and observation following other accident (principal); E11.9 Type 2 diabetes mellitus without complications; I10 Essential (primary) hypertension; I48.91 Unspecified atrial fibrillation; J44.9 Chronic obstructive pulmonary disease, unspecified; K21.9 Gastro-esophageal reflux disease without esophagitis; Z87.891 Personal history of nicotine dependence; F41.9 Anxiety disorder, unspecified; F31.9 Bipolar disorder, unspecified; Z79.899 Other long term (current) drug therapy; Z79.01 Long term (current) use of anticoagulants; Z88.2 Allergy status to sulfonamides; Z88.8 Allergy status to other drugs, medicaments and biological substances
CPT/HCPCS: 70450; 72125; 99284

== ENCOUNTER 2024-04-26 07:41 | Inpatient (IN) | payer MEDICARE, OTHER ==
[2024-04-26] MEDS ORDERED: ACET/COD 300 MG/30 MG STARTER PACK 6 TAB BTL PO STA (07:47)
[2024-04-26] MEDS ORDERED: HYDROmorphone 0.5 MG/0.5 ML SYRINGE IM STA (07:47)
--- NOTE | 2024-04-26 08:01 | ED ---
General Adult HPI - General Chief complaint: Upper Respiratory Infection Stated complaint: Confusion,weakness Time Seen by Provider: 04/26/24 07:50 Source: patient, EMS, RN notes reviewed, old records reviewed Mode of arrival: EMS Limitations: no limitations - History of Present Illness Initial comments: This is a 79-year-old male who presents to the emergency department from [facility]. Patient was sent in because he stated he had difficulty breathing was more altered than normal. There is no one with the patient to give any further details. Patient himself states he has had an increased cough and feels a little more short of breath. Patient states he is on oxygen all the time. Patient denies any headache patient has numbness weakness. Patient has chest pain. Patient denies any abdominal pain patient has any nausea or vomiting. Difficult to assess if the patient is altered from his baseline because I have no information as to what his baseline is - Related Data Home Medications Medication Instructions Recorded Confirmed Ipratropium-Albuterol Nebulize 3 ml INHALATION RT-TID 10/16/17 04/26/24 [Duoneb 0.5 mg-3 mg/3 ml Soln] Albuterol Inhaler [Ventolin Hfa 2 puff INHALATION RT-Q6H PRN 03/22/22 04/26/24 Inhaler] Apixaban [Eliquis] 5 mg PO BID 03/22/22 04/26/24 PARoxetine HCL [Paxil] 30 mg PO HS 03/22/22 04/26/24 Cholecalciferol [Vitamin D3 (25 25 mcg PO DAILY 09/19/23 04/26/24 Mcg = 1000 Iu)] Ferrous Sulfate [Iron (65 MG 325 mg PO DAILY 09/19/23 04/26/24 Elemental)] Triamcinolone 0.1% Cream [Kenalog 1 applicatio TOPICAL BID 09/19/23 04/26/24 0.1% Cream] buPROPion XL [Wellbutrin XL] 150 mg PO DAILY 09/19/23 04/26/24 lisinopriL [Zestril] 10 mg PO DAILY 09/19/23 04/26/24 polyethylene glycoL 3350 [Miralax] 17 gm PO DAILY 09/19/23 04/26/24 ALPRAZolam [Xanax] 0.25 mg PO HS 04/26/24 04/26/24 Acetaminophen [Tylenol] 650 mg PO Q6H PRN 04/26/24 04/26/24 Albuterol Nebulized [Ventolin 2.5 mg INHALATION RT-Q6H PRN 04/26/24 04/26/24 Nebulized] Ascorbic Acid [Vitamin C] 250 mg PO DAILY 04/26/24 04/26/24 Budesonide [Pulmicort] 0.25 mg INHALATION RT-BID 04/26/24 04/26/24 Calcium Carbonate [Tums] 500 mg PO Q4H PRN 04/26/24 04/26/24 Cephalexin [Keflex] 500 mg PO TID 04/26/24 04/26/24 Metoprolol Tartrate [Lopressor] 12.5 mg PO BID 04/26/24 04/26/24 Omeprazole [PriLOSEC] 20 mg PO DAILY 04/26/24 04/26/24 Oxybutynin Chloride [oxyBUTYnin 10 mg PO DAILY 04/26/24 04/26/24 chloride ER] Allergies Allergy/AdvReac Type Severity Reaction Status Date / Time olanzapine Allergy Unknown Verified 04/26/24 11:35 Sulfa (Sulfonamide Allergy BLOOD IN Verified 04/26/24 11:35 Antibiotics) URINE A CHILD Review of Systems ROS Statement: Those systems with pertinent positive or pertinent negative responses have been documented in the HPI. ROS Other: All systems not noted in ROS Statement are negative. Past Medical History Past Medical History: Atrial Fibrillation, Atrial Flutter, COPD, GERD/Reflux, Hypertension, Osteoarthritis (OA), Pneumonia, Prostate Disorder Additional Past Medical History / Comment(s): BPH, tinnitis, Type 2 diabetes- diet controlled, DJD, oxygen at 3 liters prn., states some numbness right foot & right leg slightly weaker from hx of pinched nerves in back., urine leakage- wears depends. emmanuelle legs from knee down with rash, told was from bp being too high, when presses on lower legs leaves a dent.has compression sock coming [facility] dr aware of lower leg issues History of Any Multi-Drug Resistant Organisms: None Reported Past Surgical History: Back Surgery, Joint Replacement Additional Past Surgical History / Comment(s): back surgery with spinal fusion (2010)., EGD/colonoscopy, ant TRH 04/09/22 Past Anesthesia/Blood Transfusion Reactions: No Reported Reaction Past Psychological History: Anxiety, Bipolar Smoking Status: Former smoker Past Alcohol Use History: Occasional Past Drug Use History: None Reported - Past Family History Mother Family Medical History: Congestive Heart Failure (CHF) Additional Family Medical History / Comment(s): 4 uncles passed with [place] Sister(s) Family Medical History: Congestive Heart Failure (CHF) Additional Family Medical History / Comment(s): 1 sister from CHF Father Family Medical History: Cancer Additional Family Medical History / Comment(s): of sepsis after lung surgery for suspected cancer General Exam - General Exam Comments Initial Comments: GENERAL: Patient is well-developed and well-nourished. Patient is nontoxic and well- hydrated and is in no acute distress. ENT: Neck is soft and supple. No significant lymphadenopathy is noted. Oropharynx is clear. Moist mucous membranes. Neck has full range of motion without eliciting any pain. EYES: The sclera were anicteric and conjunctiva were pink and moist. Extraocular movements were intact and pupils were equal round and reactive to light. Eyelids were unremarkable. PULMONARY: Unlabored respirations. Good breath sounds bilaterally. Diminished breath sounds with some expiratory wheezing CARDIOVASCULAR: There is a regular rate and rhythm without any murmurs gallops or rubs. ABDOMEN: Soft and nontender with normal bowel sounds. SKIN: Skin is clear with no lesions or rashes and otherwise unremarkable. NEUROLOGIC: Patient is alert and oriented x3. Cranial nerves II through XII are grossly intact. Motor and sensory are also intact. Normal speech, volume and content. Symmetrical smile. MUSCULOSKELETAL: Normal extremities with adequate strength and full range of motion. No lower extremity swelling or edema. No calf tenderness. LYMPHATICS: No significant lymphadenopathy is noted PSYCHIATRIC: Normal psychiatric evaluation. Limitations: no limitations Course Vital Signs 04/26/24 04/26/24 04/26/24 07:49 07:56 09:17 Temperature 99.9 F H Pulse Rate 61 57 L Respiratory 20 22 18 Rate Blood Pressure 106/64 110/69 O2 Sat by Pulse 96 93 L Oximetry 04/26/24 04/26/24 04/26/24 09:23 09:31 11:28 Temperature Pulse Rate 62 54 L 60 Respiratory 18 Rate Blood Pressure 96/65 O2 Sat by Pulse Oximetry Medical Decision Making - Medical Decision Making EKG is interpreted by myself. EKG shows atrial fibrillation at a rate of 60 bpm QRS is 90 QT interval is 423 QTc is 428. No ST segment elevation or depression Was pt. sent in by a medical professional or institution (, PA, TACTICAL [employer]OL PARTY MANAGER, urgent care, hospital, or penitentiary...) When possible be specific @ -Patient was sent in by the penitentiary Did you speak to anyone other than the patient for history (EMS, parent, family, police, friend...)? What history was obtained from this source @ -EMS gave us all the history because the patient was unsure as to exactly why he was here though he did mention he was short of breath Did you review nursing and triage notes (agree or disagree)? Why? @ -Yes I reviewed nursing notes and triage notes Were old charts reviewed (outside hosp., previous admission, EMS record, old EKG, old radiological studies, urgent care reports/EKG's, penitentiary records)? Report findings @ -I reviewed the documentation and came with this patient the patient's m edication list previous diagnoses. Differential Diagnosis (chest pain, altered mental status, abdominal pain women, abdominal pain men, vaginal bleeding, weakness, fever, dyspnea, syncope, headache, dizziness, GI bleed, back pain, seizure, CVA, palpatations, mental health, musculoskeletal)? @ -Differential Altered Mental Status: Hypoglycemia, DKA, hypercapnia, ETOH, overdose, CO poisoning, trauma, myxedema coma, HTN encephalopathy, infection, encephalitis, psychosis, intercranial hemorrhage, hepatic encephalopathy, meningitis, CVA, this is not meant to be an all-inclusive list Differential Dyspnea: Coronary syndrome, arrhythmia, tamponade, asthma, COPD, pulmonary embolism, pneumonia, pneumothorax, pulmonary effusion, anaphylaxis, diabetic ketoacidosis, flailed chest, pulmonary contusion, diaphragmatic rupture, anemia, neuromuscular, this is not meant to be an all-inclusive list. EKG interpreted by me (3pts min.). @ -As above X-rays interpreted by me (1pt min.). @ -Patient has a right lower lobe infiltrate CT interpreted by me (1pt min.). @ -None done U/S interpreted by me (1pt. min.). @ -None done What testing was considered but not performed or refused? (CT, X-rays, U/S, labs)? Why? @ -None What meds were considered but not given or refused? Why? @ -None Did you discuss the management of the patient with other professionals (professionals i.e. DrRic, PA, TACTICAL [employer]OL PARTY MANAGER, lab, RT, psych nurse, social services designee, jewelry polisher, teacher, marketing and communications officer, rn case manager hospice)? Give summary @ -I spoke with Dr. Guy he agreed to admit the patient Was smoking cessation discussed for >3mins.? @ -No Was critical care preformed (if so, how long)? @ -No Were there social determinants of health that impacted care today? How? (Homelessness, low income, unemployed, alcoholism, drug addiction, transportation, low edu. Level, literacy, decrease access to med. care, long term, rehab)? @ -No Was there de-escalation of care discussed even if they declined (Discuss DNR or withdrawal of care, Hospice)? DNR status @ -No What co-morbidities impacted this encounter? (DM, HTN, Smoking, COPD, CAD, Cancer, CVA, ARF, Chemo, Hep., AIDS, mental health diagnosis, sleep apnea, morbid obesity)? @ -None Was patient admitted / discharged? Hospital course, mention meds given and route, prescriptions, significant lab abnormalities, going to OR and other pertinent info. @ -Patient received antibiotics in the emergency department. I spoke with Dr. Wilkins and he agreed admit the patient to the patient wrote admitting orders Undiagnosed new problem with uncertain prognosis? @ -No Drug Therapy requiring intensive monitoring for toxicity (Heparin, Nitro, Insulin, Cardizem)? @ -No Were any procedures done? @ -No Diagnosis/symptom? @ -Pneumonia Acute, or Chronic, or Acute on Chronic? @ -acute Uncomplicated (without systemic symptoms) or Complicated (systemic symptoms)? @ -Complicated Side effects of treatment? @ -No Exacerbation, Progression, or Severe Exacerbation? @ -No Poses a threat to life or bodily function? How? (Chest pain, [place], [place], pneumonia, PE, COPD, DKA, ARF, appy, cholecystitis, CVA, Diverticulitis, Homicidal, Suicidal, threat to staff... and all critical care pts) @ -Yes this could lead to sepsis and endorgan dysfunction Diagnosis/symptom? @ -Altered mental status Acute, or Chronic, or Acute on Chronic? @ -Acute Uncomplicated (without systemic symptoms) or Complicated (systemic symptoms)? @ -Complicated Side effects of treatment? @ -None Exacerbation, Progression, or Severe Exacerbation] @ -No Poses a threat to life or bodily function? @ -No - Lab Data Result diagrams: 04/26/24 08:44 04/26/24 08:44 Lab Results 04/26/24 04/26/24 04/26/24 Range/Units 08:44 08:44 08:44 WBC 3.8 (3.8-10.6) k/uL RBC 3.85 L (4.30-5.90) m/uL Hgb 11.7 L (13.0-17.5) gm/dL Hct 36.0 L (39.0-53.0) % MCV 93.5 (80.0-100.0) fL MCH 30.4 (25.0-35.0) pg MCHC 32.5 (31.0-37.0) g/dL RDW 13.1 (11.5-15.5) % Plt Count 262 (150-450) k/uL MPV 7.2 Neutrophils % 61 % Lymphocytes % 20 % Monocytes % 14 % Eosinophils % 0 % Basophils % 1 % Neutrophils # 2.3 (1.3-7.7) k/uL Lymphocytes # 0.8 L (1.0-4.8) k/uL Monocytes # 0.5 (0-1.0) k/uL Eosinophils # 0.0 (0-0.7) k/uL Basophils # 0.0 (0-0.2) k/uL PT 11.5 (10.0-12.5) sec INR 1.1 (<1.2) APTT 37.5 H (22.0-30.0) sec Sodium (137-145) mmol/L Potassium (3.5-5.1) mmol/L Chloride (98-107) mmol/L Carbon Dioxide (22-30) mmol/L Anion Gap mmol/L BUN (9-20) mg/dL Creatinine (0.66-1.25) mg/dL Est GFR (CKD-EPI)AfAm (>60 ml/min/1.73 sqM) Est GFR (CKD-EPI)NonAf (>60 ml/min/1.73 sqM) Glucose (74-99) mg/dL Plasma Lactic Acid Jan (0.7-2.0) mmol/L Calcium (8.4-10.2) mg/dL Total Bilirubin (0.2-1.3) mg/dL AST (17-59) U/L ALT (4-49) U/L Alkaline Phosphatase (38-126) U/L Troponin I (0.000-0.034) ng/mL Total Protein (6.3-8.2) g/dL Albumin (3.5-5.0) g/dL Urine Color Urine Appearance (Clear) Urine pH (5.0-8.0) Ur Specific [place] (1.001-1.035) Urine Protein (Negative) Urine Glucose (UA) (Negative) Urine Ketones (Negative) Urine Blood (Negative) Urine Nitrite (Negative) Urine Bilirubin (Negative) Urine Urobilinogen (<2.0) mg/dL Ur Leukocyte Esterase (Negative) Urine RBC (0-5) /hpf Urine WBC (0-5) /hpf Urine Bacteria (None) /hpf Urine Mucus (None) /hpf Urine Opiates Screen Not Detected (NotDetected) Ur Oxycodone Screen Not Detected (NotDetected) Urine Methadone Screen Not Detected (NotDetected) Ur Barbiturates Screen Not Detected (NotDetected) U Tricyclic Antidepress Not Detected (NotDetected) Ur Phencyclidine Scrn Not Detected (NotDetected) Ur Amphetamines Screen Not Detected (NotDetected) U Methamphetamines Scrn Not Detected (NotDetected) U Benzodiazepines Scrn Detected H (NotDetected) Urine Cocaine Screen Not Detected (NotDetected) U Marijuana (THC) Screen Not Detected (NotDetected) 04/26/24 04/26/24 04/26/24 Range/Units 08:44 08:44 08:44 WBC (3.8-10.6) k/uL RBC (4.30-5.90) m/uL Hgb (13.0-17.5) gm/dL Hct (39.0-53.0) % MCV (80.0-100.0) fL MCH (25.0-35.0) pg MCHC (31.0-37.0) g/dL RDW (11.5-15.5) % Plt Count (150-450) k/uL MPV Neutrophils % % Lymphocytes % % Monocytes % % Eosinophils % % Basophils % % Neutrophils # (1.3-7.7) k/uL Lymphocytes # (1.0-4.8) k/uL Monocytes # (0-1.0) k/uL Eosinophils # (0-0.7) k/uL Basophils # (0-0.2) k/uL PT (10.0-12.5) sec INR (<1.2) APTT (22.0-30.0) sec Sodium 134 L (137-145) mmol/L Potassium 3.7 (3.5-5.1) mmol/L Chloride 97 L (98-107) mmol/L Carbon Dioxide 30 (22-30) mmol/L Anion Gap 7 mmol/L BUN 28 H (9-20) mg/dL Creatinine 0.92 (0.66-1.25) mg/dL Est GFR (CKD-EPI)AfAm >90 (>60 ml/min/1.73 sqM) Est GFR (CKD-EPI)NonAf 79 (>60 ml/min/1.73 sqM) Glucose 85 (74-99) mg/dL Plasma Lactic Acid Jan (0.7-2.0) mmol/L Calcium 8.7 (8.4-10.2) mg/dL Total Bilirubin 0.4 (0.2-1.3) mg/dL AST 29 (17-59) U/L ALT 12 (4-49) U/L Alkaline Phosphatase 94 (38-126) U/L Troponin I 0.028 (0.000-0.034) ng/mL Total Protein 7.3 (6.3-8.2) g/dL Albumin 4.0 (3.5-5.0) g/dL Urine Color Yellow Urine Appearance Clear (Clear) Urine pH 5.0 (5.0-8.0) Ur Specific [place] 1.017 (1.001-1.035) Urine Protein Trace H (Negative) Urine Glucose (UA) Negative (Negative) Urine Ketones Negative (Negative) Urine Blood Negative (Negative) Urine Nitrite Negative (Negative) Urine Bilirubin Negative (Negative) Urine Urobilinogen <2.0 (<2.0) mg/dL Ur Leukocyte Esterase Large H (Negative) Urine RBC 2 (0-5) /hpf Urine WBC 58 H (0-5) /hpf Urine Bacteria Rare H (None) /hpf Urine Mucus Rare H (None) /hpf Urine Opiates Screen (NotDetected) Ur Oxycodone Screen (NotDetected) Urine Methadone Screen (NotDetected) Ur Barbiturates Screen (NotDetected) U Tricyclic Antidepress (NotDetected) Ur Phencyclidine Scrn (NotDetected) Ur Amphetamines Screen (NotDetected) U Methamphetamines Scrn (NotDetected) U Benzodiazepines Scrn (NotDetected) Urine Cocaine Screen (NotDetected) U Marijuana (THC) Screen (NotDetected) 04/26/24 Range/Units 08:44 WBC (3.8-10.6) k/uL RBC (4.30-5.90) m/uL Hgb (13.0-17.5) gm/dL Hct (39.0-53.0) % MCV (80.0-100.0) fL MCH (25.0-35.0) pg MCHC (31.0-37.0) g/dL RDW (11.5-15.5) % Plt Count (150-450) k/uL MPV Neutrophils % % Lymphocytes % % Monocytes % % Eosinophils % % Basophils % % Neutrophils # (1.3-7.7) k/uL Lymphocytes # (1.0-4.8) k/uL Monocytes # (0-1.0) k/uL Eosinophils # (0-0.7) k/uL Basophils # (0-0.2) k/uL PT (10.0-12.5) sec INR (<1.2) APTT (22.0-30.0) sec Sodium (137-145) mmol/L Potassium (3.5-5.1) mmol/L Chloride (98-107) mmol/L Carbon Dioxide (22-30) mmol/L Anion Gap mmol/L BUN (9-20) mg/dL Creatinine (0.66-1.25) mg/dL Est GFR (CKD-EPI)AfAm (>60 ml/min/1.73 sqM) Est GFR (CKD-EPI)NonAf (>60 ml/min/1.73 sqM) Glucose (74-99) mg/dL Plasma Lactic Acid Jan 1.2 (0.7-2.0) mmol/L Calcium (8.4-10.2) mg/dL Total Bilirubin (0.2-1.3) mg/dL AST (17-59) U/L ALT (4-49) U/L Alkaline Phosphatase (38-126) U/L Troponin I (0.000-0.034) ng/mL Total Protein (6.3-8.2) g/dL Albumin (3.5-5.0) g/dL Urine Color Urine Appearance (Clear) Urine pH (5.0-8.0) Ur Specific [place] (1.001-1.035) Urine Protein (Negative) Urine Glucose (UA) (Negative) Urine Ketones (Negative) Urine Blood (Negative) Urine Nitrite (Negative) Urine Bilirubin (Negative) Urine Urobilinogen (<2.0) mg/dL Ur Leukocyte Esterase (Negative) Urine RBC (0-5) /hpf Urine WBC (0-5) /hpf Urine Bacteria (None) /hpf Urine Mucus (None) /hpf Urine Opiates Screen (NotDetected) Ur Oxycodone Screen (NotDetected) Urine Methadone Screen (NotDetected) Ur Barbiturates Screen (NotDetected) U Tricyclic Antidepress (NotDetected) Ur Phencyclidine Scrn (NotDetected) Ur Amphetamines Screen (NotDetected) U Methamphetamines Scrn (NotDetected) U Benzodiazepines Scrn (NotDetected) Urine Cocaine Screen (NotDetected) U Marijuana (THC) Screen (NotDetected) Disposition Clinical Impression: Pneumonia, Altered mental status Disposition: ADMITTED IP TO THIS HOSP Referrals: Tim Uriostegui DO [Primary Care Provider] - 1-2 days Time of Disposition: 12:12
--- NOTE | 2024-04-26 08:25 | XR ---
EXAMINATION TYPE: XR chest 2V DATE OF EXAM: 04/26/2024 COMPARISON: 07/19/2023 HISTORY: Cough and weakness TECHNIQUE: Frontal and lateral views of the chest are obtained. FINDINGS: There is a partially consolidated opacity in the right lung base. There is a small amount of fluid wi thin the fissure. The left lung is clear. There is no pneumothorax. The heart size is normal and the pulmonary vasculature does not appear jose ested. IMPRESSION: Acute cardiopulmonary disease involving the right lung base as described above. The find ings are most consistent with pneumonia.
[2024-04-26 09:03] LABS: Basophils % (A) 1 %; Eosinophils % (A) 0 %; HGB 11.7 gm/dL (13.0-17.5); Lymphocytes # (A) 0.8 k/uL (1.0-4.8); Lymphocytes % (A) 20 %; MCH 30.4 pg (25.0-35.0); MCHC 32.5 g/dL (31.0-37.0); MCV 93.5 fL (80.0-100.0); Mean Platelet Volume 7.2; Monocytes # (A) 0.5 k/uL (0-1.0); Monocytes % (A) 14 %; Neutrophils # (A) 2.3 k/uL (1.3-7.7); Neutrophils % (A) 61 %; Platelet Count 262 k/uL (150-450); RBC 3.85 m/uL (4.30-5.90); RDW 13.1 % (11.5-15.5); WBC 3.8 k/uL (3.8-10.6)
[2024-04-26] MEDS: ACETAMINOPHEN TAB 500 MG TAB PO STA (09:09)
[2024-04-26] MEDS: cefTRIAXone IN SWFI 1,000 MG/10 ML SYRINGE IVP STA (09:19)
[2024-04-26 09:20] LABS: ALT 12 U/L (4-49); AST 29 U/L (17-59); African American GFR (CKD) >90 (>60 ml/min/1.73 sqM); Alkaline Phosphatase 94 U/L (38-126); Anion Gap 7 mmol/L; Blood Urea Nitrogen 28 mg/dL (9-20); Calcium 8.7 mg/dL (8.4-10.2); Carbon Dioxide 30 mmol/L (22-30); Chloride 97 mmol/L (98-107); Glucose 85 mg/dL (74-99); Non-African American GFR(CKD) 79 (>60 ml/min/1.73 sqM); Potassium 3.7 mmol/L (3.5-5.1); Sodium 134 mmol/L (137-145); Total Bilirubin 0.4 mg/dL (0.2-1.3); Total Protein 7.3 g/dL (6.3-8.2)
[2024-04-26 09:23] LABS: INR 1.1 (<1.2); Partial Thromboplastin Time 37.5 sec (22.0-30.0); Prothrombin Time 11.5 sec (10.0-12.5)
[2024-04-26] MEDS: IPRATROPIUM-ALBUTEROL 3 ML NEB INHALATION STA (09:23)
[2024-04-26 09:34] LABS: Appearance,Urine Clear (Clear); Bacteria,Urine Rare /hpf; Bilirubin,Urine Negative (Negative); Blood,Urine Negative (Negative); Color,Urine Yellow; Glucose,Urine (UA) Negative (Negative); Ketones,Urine Negative (Negative); Leukocyte Esterase,Urine Large (Negative); Mucus,Urine Rare /hpf; Nitrite,Urine Negative (Negative); Protein,Urine Trace (Negative); RBC,Urine 2 /hpf (0-5); Specific Gravity,Urine 1.017 (1.001-1.035); Urobilinogen,Urine <2.0 mg/dL (<2.0); WBC,Urine 58 /hpf (0-5)
[2024-04-26 09:37] LABS: Amphetamine Screen,Urine Not Detected (NotDetected); Barbiturate Screen,Urine Not Detected (NotDetected); Benzodiazepines Screen,Urine Detected (NotDetected); Cocaine Screen,Urine Not Detected (NotDetected); Methadone Screen, Urine Not Detected (NotDetected); Opiate Screen,Urine Not Detected (NotDetected); Oxycodone Screen, Urine Not Detected (NotDetected); Phencyclidine Screen,Urine Not Detected (NotDetected); Tricyclic Antidepressant,Urine Not Detected (NotDetected); Urn Cannabinoid Scrn Not Detected (NotDetected)
[2024-04-26] MEDS: AMOXICILLIN 875 MG TAB PO STA (09:45)
--- NOTE | 2024-04-26 10:42 | P.HPIM ---
History of Present Illness Patient is a 7. Patient is not in COPD exacerbation patient does have history of atrial fibrillation on [id number] male was sent in from [facility] because of cough and shortness of breath the patient does have history of COPD a nd uses 3 L of oxygen presently on 3 L patient is not wheezing but found to have pneumonia on the x-ray as per the radiologist although I did not see any clear pneumonic infiltrate. Procalcitonin is being obtained.. REVIEW OF SYSTEMS: CONSTITUTIONAL: No fever, no malaise, no fatigue. HEENT: No recent visual problems or hearing problems. Denied any sore throat. CARDIOVASCULAR: No chest pain, orthopnea, PND, no palpitations, no syncope. PULMONARY, no hemoptysis. GASTROINTESTINAL: No diarrhea, no nausea, no vomiting, no abdominal pain. NEUROLOGICAL: No headaches, no weakness, no numbness. HEMATOLOGICAL: Denies any bleeding or petechiae. GENITOURINARY: Denies any burning micturition, frequency, or urgency. MUSCULOSKELETAL/RHEUMATOLOGICAL: Denies any joint pain, swelling, or any muscle pain. ENDOCRINE: Denies any polyuria or polydipsia. The rest of the 14-point review of systems is negative. PHYSICAL EXAMINATION: GENERAL: The patient is alert and oriented x3, not in any acute distress. Thin built male HEENT: Pupils are round and equally reacting to light. EOMI. No scleral icterus. No conjunctival pallor. Normocephalic, atraumatic. No pharyngeal erythema. No thyromegaly. CARDIOVASCULAR: S1 and S2 present. No murmurs, rubs, or gallops. PULMONARY: Chest is clear to auscultation, no wheezing or crackles. ABDOMEN: Soft, nontender, nondistended, normoactive bowel sounds. No palpable organomegaly. MUSCULOSKELETAL: No joint swelling or deformity. EXTREMITIES: No cyanosis, clubbing, or pedal edema. NEUROLOGICAL: Gross neurological examination did not reveal any focal deficits. SKIN: No rashes. Assessment and plan Shortness of breath and cough with sputum production: Possibly pneumonia patient will be on Rocephin azithromycin will obtain procalcitonin level. -COPD without any acute exacerbation patient has chronic hypercapnic respiratory failure for which patient is on 3-4 oxygen and presently on 3 L of oxygen -Atrial fibrillation paroxysmal patient is presently sinus rhythm and rate controlled patient will be resumed on home medications once verified and resume anticoagulation once verified -Gastroesophageal reflux disease -Benign prostatic hypertrophy -Hypertension: Patient is mildly hypotensive at this time -Bipolar disorder Problem mentioned chronic medical problems once medications are verified patient will be resumed on appropriate home medications DVT prophylaxis: Patient is on anticoagulation which will be resumed Past Medical History Past Medical History: Atrial Fibrillation, Atrial Flutter, COPD, GERD/Reflux, Hypertension, Osteoarthritis (OA), Pneumonia, Prostate Disorder Additional Past Medical History / Comment(s): BPH, tinnitis, Type 2 diabetes-d iet controlled, DJD, oxygen at 3 liters prn., states some numbness right foot & right leg slightly weaker from hx of pinched nerves in back., urine leakage- wears depends. emmanuelle legs from knee down with rash, told was from bp being too high, when presses on lower legs leaves a dent.has compression sock coming [facility] dr aware of lower leg issues History of Any Multi-Drug Resistant Organisms: None Reported Past Surgical History: Back Surgery, Joint Replacement Additional Past Surgical History / Comment(s): back surgery with spinal fusion (2010)., EGD/colonoscopy, ant TRH 04/09/22 Past Anesthesia/Blood Transfusion Reactions: No Reported Reaction Past Psychological History: Anxiety, Bipolar Smoking Status: Former smoker Past Alcohol Use History: Occasional Past Drug Use History: None Reported - Past Family History Mother Family Medical History: Congestive Heart Failure (CHF) Additional Family Medical History / Comment(s): 4 uncles passed with NV Sister(s) Family Medical History: Congestive Heart Failure (CHF) Additional Family Medical History / Comment(s): 1 sister from CHF Father Family Medical History: Cancer Additional Family Medical History / Comment(s): of sepsis after lung surger y for suspected cancer Medications and Allergies Home Medications Medication Instructions Recorded Confirmed Type Metoprolol Tartrate [Lopressor] 12.5 mg PO BID 01/16/17 09/19/23 History Ipratropium-Albuterol Nebulize 3 ml INHALATION RT-Q6H 10/16/17 09/19/23 History [Duoneb 0.5 mg-3 mg/3 ml Soln] Albuterol Inhaler [Ventolin Hfa 2 puff INHALATION RT-Q4H PRN 03/22/22 09/19/23 History Inhaler] Apixaban [Eliquis] 5 mg PO Q12HR 03/22/22 09/19/23 History PARoxetine HCL [Paxil] 30 mg PO BID 03/22/22 09/19/23 History Tolterodine Tartrate [Detrol LA] 4 mg PO DAILY 03/22/22 09/19/23 History Sodium Chloride Tab 1 gm PO DAILY #60 tablet 07/21/23 09/19/23 Rx Cholecalciferol [Vitamin D3 (25 25 mcg PO DAILY 09/19/23 09/19/23 History Mcg = 1000 Iu)] Ferrous Sulfate [Iron (65 MG 325 mg PO DAILY 09/19/23 09/19/23 History Elemental)] Mupirocin 2% Oint [Bactroban 2% 1 applic TOPICAL BID 09/19/23 09/19/23 History Oint] Pantoprazole Sodium [Protonix] 20 mg PO DAILY 09/19/23 09/19/23 History Triamcinolone 0.1% Cream [Kenalog 1 applicatio TOPICAL BID 09/19/23 09/19/23 History 0.1% Cream] buPROPion XL [Wellbutrin XL] 150 mg PO DAILY 09/19/23 09/19/23 History lisinopriL [Zestril] 10 mg PO DAILY 09/19/23 09/19/23 History polyethylene glycoL 3350 [Miralax] 17 gm PO DAILY 09/19/23 09/19/23 History Allergies Allergy/AdvReac Type Severity Reaction Status Date / Time olanzapine Allergy Unknown Verified 04/26/24 07:54 Sulfa (Sulfonamide Allergy BLOOD IN Verified 04/26/24 07:54 Antibiotics) URINE A CHILD Physical Exam Vitals: Vital Signs Temp Pulse Resp BP Pulse Ox 04/26/24 09:31 54 L 04/26/24 09:23 62 04/26/24 09:17 57 L 18 110/69 93 L 04/26/24 07:56 22 04/26/24 07:49 99.9 F H 61 20 106/64 96 Intake and Output 04/25/24 04/26/24 04/26/24 22:59 06:59 14:59 Other: Weight 61.235 kg Results CBC & Chem 7: 04/26/24 08:44 04/26/24 08:44 Labs: Abnormal Lab Results - Last 24 Hours (Table) 04/26/24 04/26/24 04/26/24 Range/Units 08:44 08:44 08:44 RBC 3.85 L (4.30-5.90) m/uL Hgb 11.7 L (13.0-17.5) gm/dL Hct 36.0 L (39.0-53.0) % Lymphocytes # 0.8 L (1.0-4.8) k/uL APTT 37.5 H (22.0-30.0) sec Sodium (137-145) mmol/L Chloride (98-107) mmol/L BUN (9-20) mg/dL Urine Protein (Negative) Ur Leukocyte Esterase (Negative) Urine WBC (0-5) /hpf Urine Bacteria (None) /hpf Urine Mucus (None) /hpf U Benzodiazepines Scrn Detected H (NotDetected) 04/26/24 04/26/24 Range/Units 08:44 08:44 RBC (4.30-5.90) m/uL Hgb (13.0-17.5) gm/dL Hct (39.0-53.0) % Lymphocytes # (1.0-4.8) k/uL APTT (22.0-30.0) sec Sodium 134 L (137-145) mmol/L Chloride 97 L (98-107) mmol/L BUN 28 H (9-20) mg/dL Urine Protein Trace H (Negative) Ur Leukocyte Esterase Large H (Negative) Urine WBC 58 H (0-5) /hpf Urine Bacteria Rare H (None) /hpf Urine Mucus Rare H (None) /hpf U Benzodiazepines Scrn (NotDetected)
[2024-04-26] MEDS: SODIUM CHLORIDE 0.9% 1,000 ML IV SCH (11:35)
[2024-04-26] MEDS ORDERED: PNEUMONIA PROTOCOL UTILIZED 1 EACH MISC PO PRN (12:13)
[2024-04-26] MEDS: AZITHROMYCIN 500 MG in SODIUM CHLORIDE 0.9% 250 ML IVPB STA (12:58)
[2024-04-26] MEDS: IPRATROPIUM-ALBUTEROL 3 ML NEB INHALATION SCH (15:27)
[2024-04-26] MEDS ORDERED: CALCIUM CARBONATE 500 MG CHEWABLE PO PRN (18:49)
[2024-04-26] MEDS ORDERED: ACETAMINOPHEN TAB 325 MG TAB PO PRN (18:49)
[2024-04-26] MEDS: APIXABAN 5 MG TAB PO SCH (21:49)
[2024-04-26] MEDS: METOPROLOL TARTRATE 12.5 MG TAB PO SCH (21:49)
[2024-04-26] MEDS: ALPRAZolam 0.25 MG TAB PO SCH (21:49)
[2024-04-26] MEDS: PARoxetine 10 MG TAB PO SCH (21:49)
[2024-04-26] MEDS: BUDESONIDE 0.25 MG/2 ML NEBU INHALATION SCH (23:23)
[2024-04-27] MEDS: PANTOPRAZOLE 40 MG TABLET PO SCH (06:17)
--- NOTE | 2024-04-27 08:33 | XR ---
EXAMINATION TYPE: XR chest 2V DATE OF EXAM: 04/27/2024 7:16 AM CLINICAL INDICATION:Male, 79 years old with history of pneumonia; H COMPARISON: Chest radiographs from 04/26/2024 TECHNIQUE: XR chest 2V Frontal and lateral views of the chest. FINDINGS: Lungs/Pleura: Right lower lobe airspace opacities. There is no evidence of pleural effusion, left foc al consolidation, or pneumothorax. Pulmonary vascularity: Unremarkable. Heart/mediastinum: Cardiomediastinal silhouette is unremarkable. Musculoskeletal: No acute osseous pathology. IMPRESSION: Similar right lower lobe airspace opacities compatible with pneumonia.
[2024-04-27 08:50] LABS: HCT 30.5 % (39.6-50.0); HGB 10.3 g/dL (13.0-17.0); MCH 30.9 pg (27.0-32.0); MCHC 33.8 g/dL (32.0-37.0); MCV 91.6 FL (80.0-97.0); Mean Platelet Volume 9.3 FL (9.5-12.2); NRBC Per 100 WBC 0 X 10*3/uL (0.00-0.01); Platelet Count 217 X 10*3/uL (140-440); RBC 3.33 X 10*6/uL (4.40-5.60); RDW 13.2 % (11.5-14.5); WBC 6.98 X 10*3/uL (4.50-10.00)
[2024-04-27 08:55] LABS: BUN/Creat Ratio 26.14 Ratio (12.00-20.00); Blood Urea Nitrogen 18.3 mg/dL (9.0-27.0); Calcium 8.1 mg/dL (8.7-10.3); Carbon Dioxide 26.5 mmol/L (21.6-31.8); Chloride 98 mmol/L (96-109); Glucose 89 mg/dL (70-110); Magnesium 1.7 mg/dL (1.5-2.4); Potassium 3.8 mmol/L (3.5-5.5); Sodium 135 mmol/L (135-145)
[2024-04-27] MEDS ORDERED: AZITHROMYCIN 500 MG TAB PO SCH (09:00)
[2024-04-27] MEDS: ASCORBIC ACID 500 MG TAB PO SCH (09:21)
[2024-04-27] MEDS: FERROUS SULFATE 325 MG TAB PO SCH (09:21)
[2024-04-27] MEDS: CHOLECALCIFEROL 25 MCG (1000 IU) TABLET PO SCH (09:21)
[2024-04-27] MEDS: buPROPion XL 150 MG TAB.ER.24H PO SCH (09:22)
[2024-04-27] MEDS: polyethylene glycoL 3350 17 GM POWD.PACK PO SCH (09:22)
[2024-04-27] MEDS: AZITHROMYCIN 500 MG TAB PO SCH (09:22)
[2024-04-27] MEDS: OXYBUTYNIN 10 MG TAB.ER.24 PO SCH (09:23)
[2024-04-27 20:57] LABS: Glucose,Whole Blood 100 mg/dL (70-110)
[2024-04-28 06:12] LABS: Glucose,Whole Blood 94 mg/dL (70-110)
--- NOTE | 2024-04-28 06:18 | P.PN ---
Subjective Progress Note Date: 04/27/24 Patient is a 79-year-old male who was admitted with COPD exacerbation patient does have history of atrial fibrillation on Eliquis. He was sent in from [facility] because of cough and shortness of breath the patient does have history of COPD and uses 3 L of oxygen presently on 3 L patient is not wheezing but found to have pneumonia on the x-ray as per the radiologist although I did not see any clear pneumonic infiltrate. Procalcitonin is being obtained.. 04/27/2024 Patient seen and evaluated in follow-up continues to be pleasantly confused although appears baseline and is maintained on antibiotics in the form of ceftriaxone and Zithromax. Procalcitonin is 0.13 and will discontinue Zithromax. Continue on breathing treatments as well and will encourage incentive spirometer use. Continue with aspiration precautions and supervision with meals. Plan is for patient to return to [facility] once stable. Review of systems: Constitutional: No reports of fatigue, fever, or chills Cardiovascular: No reports of chest pain or palpitations Respiratory: No reports of worsening shortness of breath, occasional cough GI: No reports of nausea, vomiting, or diarrhea : No reports of dysuria or retention Neurovascular: reports of generalized weakness All medications have been reviewed PHYSICAL EXAMINATION: GENERAL: The patient is alert and oriented x2, not in any acute distress. Pleasant but confused at baseline, thin built male, elderly appearing HEENT: Pupils are round and equally reacting to light. EOMI. No scleral icterus. No conjunctival pallor. Normocephalic, atraumatic. No pharyngeal erythema. No thyromegaly. CARDIOVASCULAR: S1 and S2 present. No murmurs, rubs, or gallops. PULMONARY: Diminished breath sounds bilaterally otherwise chest is clear to auscultation, no significant wheezing noted ABDOMEN: Soft, nontender, nondistended, normoactive bowel sounds. No palpable o rganomegaly. MUSCULOSKELETAL: No joint swelling or deformity. EXTREMITIES: No cyanosis, clubbing, or pedal edema. NEUROLOGICAL: Gross neurological examination did not reveal any focal deficits. SKIN: No rashes. Assessment: -Shortness of breath and cough with sputum production: pneumonia excluded, procalcitonin 0.13 -COPD without any acute exacerbation patient has chronic hypercapnic respiratory failure for which patient is on 3-4 oxygen and presently on 3 L of oxygen -Atrial fibrillation paroxysmal, currently sinus rhythm and rate controlled -Gastroesophageal reflux disease -Benign prostatic hypertrophy -Hypertension: Patient is mildly hypotensive at this time -Bipolar disorder -DVT prophylaxis: Patient is on anticoagulation which will be resumed -GI prophylaxis -No code Plan: Patient is currently maintained on breathing treatments and baseline supplemental oxygen of 3 L which she chronically wears Procalcitonin was elevated and will continue Rocephin. Discontinue Zithromax encourage incentive spirometer use Medications reviewed and resumed as appropriate Case management following following as plans will be to return to [facility] once stable Possible discharge planning in next 24 to 48 hours The impression and plan of care has been dictated by Venus Renae, Nurse Practitioner as directed. Dr. Brooks MD I have performed a history and examination and MDM of this patient, discussed the same with the dictator, and agree with the dictator's assessment and plan as written ,documented as a scribe. Based on total visit time, I have performed more than 50% of the visit. Objective - Vital Signs Vital signs: Vital Signs Temp 99.5 F 04/27/24 07:51 Pulse 70 04/27/24 09:39 Resp 16 04/27/24 09:39 BP 110/55 04/27/24 07:51 Pulse Ox 94 L 04/27/24 09:28 FiO2 Intake & Output 04/26/24 04/27/24 04/27/24 18:59 06:59 18:59 Output Total 3 1225 Balance -3 -1225 Weight 61.235 kg Output: Urine 3 1225 Uretheral ([place]) 625 Other: Voiding Method Bedside Commode Urinal # Voids 1 # Bowel Movements 1 - Labs CBC & Chem 7: 04/27/24 06:14 04/27/24 06:14 Labs: Abnormal Lab Results - Last 24 Hours (Table) 04/26/24 04/27/24 04/27/24 Range/Units 08:44 06:14 06:14 RBC 3.33 L (4.40-5.60) X 10*6/uL Hgb 10.3 L (13.0-17.0) g/dL Hct 30.5 L (39.6-50.0) % MPV 9.3 L (9.5-12.2) FL BUN/Creatinine Ratio 26.14 H (12.00-20.00) Ratio Calcium 8.1 L (8.7-10.3) mg/dL Procalcitonin 0.13 H (0.02-0.09) ng/mL
[2024-04-28 09:56] LABS: ALT 11 U/L (4-49); AST 27 U/L (17-59); African American GFR (CKD) >90 (>60 ml/min/1.73 sqM); Albumin 2.7 g/dL (3.5-5.0); Alkaline Phosphatase 68 U/L (38-126); Anion Gap 2 mmol/L; Blood Urea Nitrogen 13 mg/dL (9-20); Calcium 7.9 mg/dL (8.4-10.2); Carbon Dioxide 27 mmol/L (22-30); Chloride 101 mmol/L (98-107); Globulin 2.8 g/dL; Glucose 122 mg/dL (74-99); Magnesium 1.6 mg/dL (1.6-2.3); Non-African American GFR(CKD) >90 (>60 ml/min/1.73 sqM); Potassium 3.7 mmol/L (3.5-5.1); Sodium 130 mmol/L (137-145); Total Bilirubin 0.5 mg/dL (0.2-1.3); Total Protein 5.5 g/dL (6.3-8.2)
[2024-04-28 10:08] LABS: Basophils % (A) 0 %; Eosinophils % (A) 0 %; HCT 30.4 % (39.0-53.0); Lymphocytes # (A) 0.8 k/uL (1.0-4.8); Lymphocytes % (A) 17 %; MCH 30.5 pg (25.0-35.0); MCHC 32.5 g/dL (31.0-37.0); Mean Platelet Volume 7.5; Monocytes # (A) 0.3 k/uL (0-1.0); Monocytes % (A) 7 %; Neutrophils # (A) 3.4 k/uL (1.3-7.7); Neutrophils % (A) 74 %; Platelet Count 199 k/uL (150-450); RBC 3.23 m/uL (4.30-5.90); RDW 13.1 % (11.5-15.5); WBC 4.6 k/uL (3.8-10.6)
[2024-04-28] MEDS ORDERED: Magnesium Replacement Protocol 1 EACH MISC MISCELLANE PRN (10:11)
[2024-04-28 10:24] LABS: HGB 9.9 gm/dL (13.0-17.5)
[2024-04-28 11:21] LABS: Glucose,Whole Blood 116 mg/dL (70-110)
[2024-04-28] MEDS: MAGNESIUM SULFATE-D5W PMX 1 GM in DEXTROSE/WATER 1 100ML.BAG IVPB SCH (11:24)
[2024-04-29 08:19] VITALS: BP 139/75; RESP 17; TEMP 98.4
[2024-04-29 08:54] LABS: BUN/Creat Ratio 12.83 Ratio (12.00-20.00); Blood Urea Nitrogen 7.7 mg/dL (9.0-27.0); Calcium 7.8 mg/dL (8.7-10.3); Carbon Dioxide 25.6 mmol/L (21.6-31.8); Chloride 99 mmol/L (96-109); Glucose 95 mg/dL (70-110); Magnesium 1.9 mg/dL (1.5-2.4); Potassium 3.7 mmol/L (3.5-5.5); Sodium 135 mmol/L (135-145)
--- NOTE | 2024-04-29 09:46 | P.PN ---
Subjective Progress Note Date: 04/28/24 Patient is a 79-year-old male who was admitted with COPD exacerbation patient does have history of atrial fibrillation on Eliquis. He was sent in from [facility] because of cough and shortness of breath the patient does have history of COPD and uses 3 L of oxygen presently on 3 L patient is not wheezing but found to have pneumonia on the x-ray as per the radiologist although I did not see any clear pneumonic infiltrate. Procalcitonin is being obtained.. 04/27/2024 Patient seen and evaluated in follow-up continues to be pleasantly confused although appears baseline and is maintained on antibiotics in the form of ceftriaxone and Zithromax. Procalcitonin is 0.13 and will discontinue Zithromax. Continue on breathing treatments as well and will encourage incentive spirometer use. Continue with aspiration precautions and supervision with meals. Plan is for patient to return to [facility] once stable. 04/28/2024 Patient is seen in follow-up today continues to be confused at baseline is answ ering questions and talking appropriately. Patient denies any significant shortness of breath and is maintained on ceftriaxone with concerns of possible pneumonia. Procalcitonin was not significantly elevated and has completed Zithromax. Continue with DuoNeb treatments and encourage incentive spirometer. Will follow-up on repeat labs and discuss further with case management regarding discharge planning Review of systems: Constitutional: No reports of fatigue, fever, or chills Cardiovascular: No reports of chest pain or palpitations Respiratory: No reports of worsening shortness of breath, occasional cough GI: No reports of nausea, vomiting, or diarrhea : No reports of dysuria or retention Neurovascular: reports of generalized weakness All medications have been reviewed PHYSICAL EXAMINATION: GENERAL: The patient is alert and oriented x2, not in any acute distress. Pleasant but confused at baseline, thin built male, elderly appearing HEENT: Pupils are round and equally reacting to light. EOMI. No scleral icterus. No conjunctival pallor. Normocephalic, atraumatic. No pharyngeal erythema. No thyromegaly. CARDIOVASCULAR: S1 and S2 present. No murmurs, rubs, or gallops. PULMONARY: Diminished breath sounds bilaterally otherwise chest is clear to auscultation, no significant wheezing noted ABDOMEN: Soft, nontender, nondistended, normoactive bowel sounds. No palpable o rganomegaly. MUSCULOSKELETAL: No joint swelling or deformity. EXTREMITIES: No cyanosis, clubbing, or pedal edema. NEUROLOGICAL: Gross neurological examination did not reveal any focal deficits. SKIN: No rashes. Assessment: -Shortness of breath and cough with sputum production: pneumonia excluded, procalcitonin 0.13 -COPD without any acute exacerbation patient has chronic hypercapnic respiratory failure for which patient is on 3-4 oxygen and presently on 3 L of oxygen -Atrial fibrillation paroxysmal, currently sinus rhythm and rate controlled -Gastroesophageal reflux disease -Benign prostatic hypertrophy -Hypertension: Patient is mildly hypotensive at this time -Bipolar disorder -DVT prophylaxis: Patient is on anticoagulation which will be resumed -GI prophylaxis -No code Plan: Patient is currently maintained on breathing treatments and baseline supplemental oxygen of 3 L which she chronically wears Procalcitonin was elevated and will continue Rocephin. Discontinue Zithromax encourage incentive spirometer use Medications reviewed and resumed as appropriate Case management following following as [facility] Possible discharge planning in next 24 to 48 hours The impression and plan of care has been dictated by Venus Renae, Nurse Practitioner as directed. Dr. Brooks MD I have performed a history and examination and MDM of this patient, discussed the same with the dictator, and agree with the dictator's assessment and plan as written ,documented as a scribe. Based on total visit time, I have performed more than 50% of the visit. Objective - Vital Signs Vital signs: Vital Signs Temp 97.5 F L 04/28/24 06:55 Pulse 60 04/28/24 09:26 Resp 16 04/28/24 09:26 BP 146/68 04/28/24 06:55 Pulse Ox 94 L 04/28/24 09:26 FiO2 Intake & Output 04/27/24 04/28/24 04/28/24 18:59 06:59 18:59 Intake Total 180 Output Total 300 600 Balance -120 -600 Intake: Oral 180 Output: Urine 300 600 Other: Voiding Method Bedside Commode Bedside Commode Urinal Urinal - Labs CBC & Chem 7: 04/28/24 09:10 04/29/24 05:27 Labs: Abnormal Lab Results - Last 24 Hours (Table) 04/28/24 Range/Units 09:10 Sodium 130 L (137-145) mmol/L Creatinine 0.55 L (0.66-1.25) mg/dL Glucose 122 H (74-99) mg/dL Calcium 7.9 L (8.4-10.2) mg/dL Total Protein 5.5 L (6.3-8.2) g/dL Albumin 2.7 L (3.5-5.0) g/dL Microbiology - Last 24 Hours (Table) 04/26/24 08:30 Blood Culture - Preliminary Blood 04/26/24 21:50 Gram Stain - Preliminary Sputum
[2024-04-29 11:04] LABS: Glucose,Whole Blood 212 mg/dL (70-110)
[2024-04-29 11:34] VITALS: PULSE 72
[2024-04-29] MEDS: FUROSEMIDE 10 MG/ML 2 ML VIAL IV ONE (11:38)
[2024-04-29] MEDS: FLUCONAZOLE 100 MG TAB PO SCH (11:38)
--- NOTE | 2024-04-29 12:38 | P.DS ---
Providers Date of admission: 04/26/24 12:15 Expected date of discharge: 04/29/24 Attending physician: Walter Bush Primary care physician: Tim [facility] Course: Patient is a 79-year-old male who was admitted with COPD exacerbation patient does have history of atrial fibrillation on Eliquis. He was sent in from [facility] because of cough and shortness of breath the patient does have history of COPD and uses 3 L of oxygen presently on 3 L patient is not wheezing but found to have pneumonia on the x-ray as per the radiologist although I did not see any clear pneumonic infiltrate. Procalcitonin is being obtained.. 04/27/2024 Patient seen and evaluated in follow-up continues to be pleasantly confused although appears baseline and is maintained on antibiotics in the form of ceftriaxone and Zithromax. Procalcitonin is 0.13 and will discontinue Zithromax. Continue on breathing treatments as well and will encourage incentive spirometer use. Continue with aspiration precautions and supervision with meals. Plan is for patient to return to [facility] once stable. 04/28/2024 Patient is seen in follow-up today continues to be confused at baseline is answering questions and talking appropriately. Patient denies any significant shortness of breath and is maintained on ceftriaxone with concerns of possible pneumonia. Procalcitonin was not significantly elevated and has completed Zithromax. Continue with DuoNeb treatments and encourage incentive spirometer. Will follow-up on repeat labs and discuss further with case management regarding discharge planning April 29, 2024: Very slight congestion. Eating well. 2% on 3 L. Mucinex added. Will return to [facility]. Complete a short course of Ceftin. Discussion and discharge planning more than 35 minutes On examination: VITAL SIGNS: [98.4, 68, 17, 139 x 75, 92% on 3 L] GENERAL APPEARANCE: Average build. Tanning bed, mild congestion HEENT: Normal external appearance of nose and ear. Oral cavity normal EYES: Pupils equal. Conjunctiva normal. NECK: JVD not raised. Mass not palpable. RESPIRATORY: Respiratory effort normal. Lungs Tory crackles CARDIOVASCULAR: First and second sounds normal. No edema. ABDOMEN: Soft. Liver and spleen not palpable. No tenderness. No mass palpable. PSYCHIATRY: Able to answer simple questions INVESTIGATIONS, reviewed in the clinical context: April 29, 2024: Potassium 3.7 creatinine 0.6 April 28: White count 4.6 hemoglobin 9.9 platelets 199 proBNP 6010 Procalcitonin 0.13 Chest x-ray: Right basilar infiltrate Assessment: -Pneumonia consider gram-negative organism Complete course with Ceftin -COPD without any acute exacerbation patient has chronic hypercapnic respiratory failure for which patient is on 3-4 oxygen -Chronic hypoxic respiratory failure from COPD On 3 L nasal cannula -Atrial fibrillation paroxysmal, currently sinus rhythm and rate controlled Lopressor 12.5 twice daily. Eliquis -Gastroesophageal reflux disease Prilosec -Benign prostatic hypertrophy -Hypertension: Patient is mildly hypotensive at this time -Bipolar disorder Paxil 30 mg nightly Wellbutrin XL 150 mg a day Xanax 25 nightly -No code Disposition: [facility] Plan - Discharge Summary New Discharge Prescriptions: New cefUROXime axetiL [Ceftin] 500 mg PO BID #6 tab Ipratropium-Albuterol Nebulize [Duoneb 0.5 mg-3 mg/3 ml Soln] 3 ml INHALATION RT-QID each Continue PARoxetine HCL [Paxil] 30 mg PO HS Ferrous Sulfate [Iron (65 MG Elemental)] 325 mg PO DAILY Cholecalciferol [Vitamin D3 (25 Mcg = 1000 Iu)] 25 mcg PO DAILY Triamcinolone 0.1% Cream [Kenalog 0.1% Cream] 1 applicatio TOPICAL BID Oxybutynin Chloride [oxyBUTYnin chloride ER] 10 mg PO DAILY Metoprolol Tartrate [Lopressor] 12.5 mg PO BID Calcium Carbonate [Tums] 500 mg PO Q4H PRN PRN Reason: Heartburn Apixaban [Eliquis] 5 mg PO BID polyethylene glycoL 3350 [Miralax] 17 gm PO DAILY buPROPion XL [Wellbutrin XL] 150 mg PO DAILY Budesonide [Pulmicort] 0.25 mg INHALATION RT-BID Omeprazole [PriLOSEC] 20 mg PO DAILY Ascorbic Acid [Vitamin C] 250 mg PO DAILY Albuterol Nebulized [Ventolin Nebulized] 2.5 mg INHALATION RT-Q6H PRN PRN Reason: Shortness Of Breath Acetaminophen [Tylenol] 650 mg PO Q6H PRN PRN Reason: Fever And/ Or Pain ALPRAZolam [Xanax] 0.25 mg PO HS #3 tab Discontinued Ipratropium-Albuterol Nebulize [Duoneb 0.5 mg-3 mg/3 ml Soln] 3 ml INHALATION RT-TID Albuterol Inhaler [Ventolin Hfa Inhaler] 2 puff INHALATION RT-Q6H PRN PRN Reason: Shortness Of Breath lisinopriL [Zestril] 10 mg PO DAILY Cephalexin [Keflex] 500 mg PO TID Discharge Medication List Apixaban [Eliquis] 5 mg PO BID 03/22/22 [History] PARoxetine HCL [Paxil] 30 mg PO HS 03/22/22 [History] Cholecalciferol [Vitamin D3 (25 Mcg = 1000 Iu)] 25 mcg PO DAILY 09/19/23 [History] Ferrous Sulfate [Iron (65 MG Elemental)] 325 mg PO DAILY 09/19/23 [History] Triamcinolone 0.1% Cream [Kenalog 0.1% Cream] 1 applicatio TOPICAL BID 09/19/23 [History] buPROPion XL [Wellbutrin XL] 150 mg PO DAILY 09/19/23 [History] polyethylene glycoL 3350 [Miralax] 17 gm PO DAILY 09/19/23 [History] Acetaminophen [Tylenol] 650 mg PO Q6H PRN 04/26/24 [History] Albuterol Nebulized [Ventolin Nebulized] 2.5 mg INHALATION RT-Q6H PRN 04/26/24 [History] Ascorbic Acid [Vitamin C] 250 mg PO DAILY 04/26/24 [History] Budesonide [Pulmicort] 0.25 mg INHALATION RT-BID 04/26/24 [History] Calcium Carbonate [Tums] 500 mg PO Q4H PRN 04/26/24 [History] Metoprolol Tartrate [Lopressor] 12.5 mg PO BID 04/26/24 [History] Omeprazole [PriLOSEC] 20 mg PO DAILY 04/26/24 [History] Oxybutynin Chloride [oxyBUTYnin chloride ER] 10 mg PO DAILY 04/26/24 [History] ALPRAZolam [Xanax] 0.25 mg PO HS #3 tab 04/29/24 [Rx] Ipratropium-Albuterol Nebulize [Duoneb 0.5 mg-3 mg/3 ml Soln] 3 ml INHALATION RT-QID each 04/29/24 [Rx] cefUROXime axetiL [Ceftin] 500 mg PO BID #6 tab 04/29/24 [Rx] Follow up Appointment(s)/Referral(s): Tim Uriostegui DO [Primary Care Provider] [facility] - As Needed
[2024-04-29] MEDS ORDERED: guaiFENesin 600 MG TABLET.ER PO SCH (13:00)
== END 2024-04-29 15:02 | DRG 190 ==
LOC: EC 07:41 → 4SSUR 12:15
PROVIDERS: ADMIT Hospitalist; ATTEND Hospitalist
DX: J44.0 Chronic obstructive pulmonary disease with (acute) lower respiratory infection (principal); J15.69 Pneumonia due to other Gram-negative bacteria; J96.12 Chronic respiratory failure with hypercapnia; J96.11 Chronic respiratory failure with hypoxia; I48.0 Paroxysmal atrial fibrillation; F31.9 Bipolar disorder, unspecified; E11.9 Type 2 diabetes mellitus without complications; Z66 Do not resuscitate; Z99.81 Dependence on supplemental oxygen; I95.9 Hypotension, unspecified; I10 Essential (primary) hypertension; K21.9 Gastro-esophageal reflux disease without esophagitis; N40.1 Benign prostatic hyperplasia with lower urinary tract symptoms; N39.498 Other specified urinary incontinence; Z98.1 Arthrodesis status; Z87.891 Personal history of nicotine dependence; Z79.01 Long term (current) use of anticoagulants; Z79.899 Other long term (current) drug therapy; Z79.51 Long term (current) use of inhaled steroids; Z88.2 Allergy status to sulfonamides; Z88.8 Allergy status to other drugs, medicaments and biological substances
CPT/HCPCS: 36415; 71046; 80048; 80053; 80306; 81001; 83605; 83735; 83880; 84145; 84484; 85025; 85027; 85610; 85730; 87040; 87070; 87205; 87449; 93005; 94640; 94760; 96361; 96374; 96375; 99285